=== PATIENT | male | born 1980 | race Hispanic/Latino ===

== ENCOUNTER 2023-01-25 15:06 | Inpatient (IN) | payer OTHER ==
[~2023-01-25 15:06] MED LIST: Iopamidol 370 76% 100 ML VIAL ONE
[2023-01-25] MEDS ORDERED: Ondansetron PF 4 MG/2 ML Vial IVP PRN (15:24)
[2023-01-25] MEDS ORDERED: Dextrose 5% in Water 1,000 ML IV PRN (15:24)
[2023-01-25] MEDS ORDERED: Dextrose 50% Abboject 50 ML SYRINGE SLOW IVP PRN (15:24)
[2023-01-25] MEDS ORDERED: TETANUS, DIPHTHERIA TOX,ADULT (TDVAX) 0.5 ML VIAL IM ONE (15:24)
[2023-01-25 15:32] LABS: #Eosinphils 0.2 thou/uL (0.0-0.7); #Lymphocytes 3.1 thou/uL (1.20-3.40); #Monocytes 0.6 thou/uL (0.11-0.59); %Basophils 0.4 % (0.0-1.0); %Eosinophils 1.3 % (0.0-10.0); %Lymphocytes 24.3 % (21.0-51.0); %Monocytes 4.3 % (0.0-10.0); %Neutrophils 69.7 % (42.0-75.0); Hemoglobin 12.3 g/dL (14.0-18.0); Mean Corpuscular HGB CONC 34.5 g/dL (32.0-36.0); Mean Corpuscular Hemoglobin 33.2 pg (27.0-31.0); Mean Corpuscular Volume 96.3 fl (78.0-98.0); Mean Platelet Volume 7.4 fL (7.4-10.4); Platelet Count 201 10x3/uL (130-400); RBC Distribution Width 11.2 % (11.5-14.5); Red Blood Cell (RBC) Count 3.71 mill/uL (4.70-6.10); White Blood Cell (WBC) Count 12.8 10x3/uL (4.8-10.8)
[2023-01-25] MEDS ORDERED: CEFAZOLIN 2 GM VIAL ONE ×2 (15:33→15:41)
[2023-01-25] MEDS ORDERED: Boostrix 0.5 ML (Tdap) VIAL (>/=7 yrs of age) ONE (15:35)
[2023-01-25] MEDS ORDERED: Calcium Chloride 1 GM/10 ML Abboject SYRINGE ONE ×2 (15:36→21:11)
[2023-01-25] MEDS ORDERED: Sodium Bicarb 50 MEQ/50 ML Abboject 8.4% SYRINGE ONE (15:36)
[2023-01-25 15:40] LABS: INR-International Normal Ratio 1.1; PTT 25.7 sec (22.9-36.1); Prothrombin Time 14.3 sec (12.0-14.7)
[2023-01-25 15:49] LABS: ALT (SGPT) 47 U/L (8-55); AST (SGOT) 61 U/L (5-34); Albumin 3.4 g/dL (3.5-5.0); Alkaline Phosphatase 77 U/L (40-110); Anion Gap 19 mmol/L (10-20); BUN (Urea Nitrogen) 10 mg/dL (8.9-20.6); Bilirubin, Total 0.3 mg/dL (0.2-1.2); Calc. Creatinine Clearance 0 mL/min (70-130); Calcium 7.3 mg/dL (7.8-10.44); Carbon Dioxide 15 mmol/L (22-29); Chloride 116 mmol/L (98-107); Estimated GFR 109; Globulin 2.9 g/dL (2.4-3.5); Glucose 127 mg/dL (70-105); Potassium 3.5 mmol/L (3.5-5.1); Protein, Total 6.3 g/dL (6.0-8.3); Sodium 146 mmol/L (136-145)
[2023-01-25 15:51] LABS: Actual Bicarbonate (HCO3a) 16.2 mEq/L (22-28); Analyzer IN Cardio ER; Base Excess (BEa) -10.5 mEq/L (-2.0 to +3.0); Calcium, Ionized (arterial) 1.31 mmol/L (1.12-1.30); Carboxyhemoglobin (COHb) 0.3 gm% (0.0-3.0); Hemoglobin (Hb) 13.1 g/dL (14.0-18.0); O2 Tension (PaO2), arterial 99.6 mmHg (80.0-100.0); Potassium - ABG Lab 3.54 mmol/L (3.70-5.30); pH, Arterial 7.24 (7.35-7.45)
[2023-01-25 15:54] LABS: Acetaminophen Less than 10.0 mcg/mL (10.0-30.0); Alcohol 311 mg/dL (Less than 10); CK (CPK) 614 U/L (30-200); Salicylate Less than 8.0 mg/dL (15.0-30.0)
[2023-01-25] MEDS ORDERED: Midazolam HCl 2 mg/2 ml Vial ONE ×2 (15:56→17:19)
[2023-01-25 15:58] LABS: Puncture Site RRA
[2023-01-25] MEDS ORDERED: levETIRAcetam 500 MG/5 ML VIAL ONE (16:02)
[2023-01-25] MEDS ORDERED: Fentanyl 100 MCG/2 ML VIAL ONE (16:26)
[2023-01-25] MEDS ORDERED: FENTANYL 500 MCG/10 ML VIAL 2,000 MCG in Sodium Chloride 0.9% 60 ML IV PRN (16:27)
[2023-01-25] MEDS ORDERED: Midazolam HCl 2 mg/2 ml Vial SLOW IVP SCH (16:30)
[2023-01-25] MEDS ORDERED: Sodium Bicarb 50 MEQ/50 ML VIAL ONE (16:32)
[2023-01-25 16:39] LABS: Lipase 18 U/L (8-78)
[2023-01-25] MEDS ORDERED: Fentanyl CADD 100 ML IVPB SCH (16:45)
[2023-01-25 16:57] LABS: Sodium 147 mmol/L (136-145)
[2023-01-25] MEDS ORDERED: Sodium Bicarb 50 MEQ/50 ML VIAL IVP SCH (17:15)
[2023-01-25] MEDS ORDERED: Fentanyl CADD 100 ML IV SCH (17:15)
[2023-01-25] MEDS ORDERED: Fentanyl BOLUS 250 ML IVPB PRN ×2 (17:15→17:30)
[2023-01-25] MEDS ORDERED: Sodium Chloride 0.9% 1,000 ML IV SCH (17:15)
[2023-01-25] MEDS: Sodium Chloride 0.9% 1,000 ML IV SCH ×2 (18:17→22:58)
[2023-01-25 18:46] LABS: SARS-CoV-2 NAA Rapid Test Not Detected (NotDetected)
[2023-01-25] MEDS: Ipratropium/Albuterol 3 ML NEB NEB SCH (18:59)
[2023-01-25 19:02] LABS: Sodium 145 mmol/L (136-145)
[2023-01-25 19:10] LABS: Actual Bicarbonate (HCO3a) 17.3 mEq/L (22-28); Base Excess (BEa) -7.8 mEq/L (-2.0 to +3.0); CO2 Tension 34.1 mmHg (35.0-45.0); Calcium, Ionized (arterial) 1.02 mmol/L (1.12-1.30); Carboxyhemoglobin (COHb) 0.3 gm% (0.0-3.0); Hemoglobin (Hb) 11.1 g/dL (14.0-18.0); O2 Tension (PaO2), arterial 222.9 mmHg (80.0-100.0); Potassium - ABG Lab 3.95 mmol/L (3.70-5.30); pH, Arterial 7.32 (7.35-7.45)
[2023-01-25 19:16] LABS: ALV-art Gradient 447.475 mmHg (0-20); Puncture Site Arterial Line
[2023-01-25 19:19] LABS: Lactic Acid 5.5 mmol/L (0.5-2.2)
[2023-01-25 19:56] LABS: Amphetamine Not Detected (NotDetected); Barbiturates Screen Not Detected (NotDetected); Benzodiazepine Screen Not Detected (NotDetected); Cocaine Metabolite Screen Not Detected (NotDetected); Methadone Not Detected (NotDetected); Methamphetamine Not Detected (NotDetected); Opiate Screen Not Detected (NotDetected); Oxycodone Screen Not Detected (NotDetected); Phencyclidine (PCP) Not Detected (NotDetected); THC/Cannabinoid Screen Not Detected (NotDetected); Tricyclic Screen Not Detected (NotDetected)
[2023-01-25] MEDS ORDERED: Midazolam HCl 5 mg/5 ml Vial ONE (20:53)
[2023-01-25] MEDS ORDERED: Fentanyl 250 MCG/5 ML VIAL ONE (20:53)
[2023-01-25] MEDS ORDERED: Bacitracin Zinc Ointment 30 gm TUBE ONE (21:11)
[2023-01-25] MEDS ORDERED: Esmolol 100 MG/10 ML VIAL ONE (21:11)
[2023-01-25] MEDS ORDERED: Vecuronium 10 MG VIAL ONE (21:11)
[2023-01-25] MEDS ORDERED: Dexamethasone 20 MG/5 ML VIAL ONE (21:11)
[2023-01-25] MEDS ORDERED: PHENYLEPHRINE-NS 100 MCG/ML 10 ML SYRINGE ONE (21:11)
[2023-01-25] MEDS ORDERED: Rocuronium Bromide 10 MG/ML (10ML VIAL) ONE ×2 (21:11)
[2023-01-25] MEDS ORDERED: Neomycin-Polymyxin 1 ML AMP ONE (21:11)
[2023-01-25] MEDS ORDERED: Thrombin 5000 UNITS/5 ML VIAL ONE (21:11)
[2023-01-25] MEDS ORDERED: Ondansetron PF 4 MG/2 ML Vial ONE (21:11)
[2023-01-25] MEDS ORDERED: EPINEPHrine 1 MG/ML AMP ONE (21:13)
[2023-01-25] MEDS ORDERED: Lidocaine 1% (PF) 30 ML VIAL ONE (21:13)
[2023-01-25] MEDS ORDERED: CEFAZOLIN 2 GM in Sodium Chloride 0.9% 100 ML IVPB SCH (21:15)
[2023-01-25] MEDS: CEFAZOLIN 2 GM in Sodium Chloride 0.9% 100 ML IVPB SCH (21:46)
[2023-01-25 23:41] LABS: INR-International Normal Ratio 1.3; PTT 30.5 sec (22.9-36.1); Prothrombin Time 16.4 sec (12.0-14.7)
[2023-01-25 23:42] LABS: Hemoglobin 8.8 g/dL (14.0-18.0)
[2023-01-25] MEDS ORDERED: Calcium Chloride 1 GM/10 ML Abboject SYRINGE IVP SCH (23:45)
[2023-01-25] MEDS ORDERED: Mineral Oil Sterile 10 ML VIAL ONE (23:48)
[2023-01-26] MEDS ORDERED: Oxazepam 10 MG CAP PO SCH (00:30)
[2023-01-26] MEDS ORDERED: Rocuronium Bromide 50 MG/5 ML VIAL ONE (00:43)
[2023-01-26] MEDS ORDERED: Sodium Bicarb 50 MEQ/50 ML VIAL ONE (02:06)
[2023-01-26] MEDS ORDERED: Vancomycin 1 GM VIAL ONE (02:12)
[2023-01-26] MEDS ORDERED: Propofol 1,000 MG/100 ML VIAL IV ONE (03:29)
[2023-01-26] MEDS ORDERED: Propofol 1,000 MG/100 ML VIAL IV PRN (03:41)
[2023-01-26] MEDS ORDERED: Sterile Water 10 ML ONE (03:43)
[2023-01-26] MEDS: niCARdipine 25 MG in Sodium Chloride 0.9% 250 ML 250 ML IVPB SCH ×2 (03:51→07:25)
[2023-01-26 04:59] LABS: INR-International Normal Ratio 1.1
[2023-01-26 05:00] LABS: PTT 30.4 sec (22.9-36.1)
[2023-01-26 05:07] LABS: Lactic Acid 2.3 mmol/L (0.5-2.2)
[2023-01-26 05:09] LABS: Band 23 % (5-11); Hemoglobin 9.5 g/dL (14.0-18.0); Hypochromia SLIGHT = 6-15 cells (100X) (0-5/hpf); Lymphocytes 5 % (21-51); MDiff Complete? YES; Mean Corpuscular HGB CONC 34.5 g/dL (32.0-36.0); Mean Corpuscular Hemoglobin 32.9 pg (27.0-31.0); Mean Corpuscular Volume 95.2 fl (78.0-98.0); Mean Platelet Volume 7.4 fL (7.4-10.4); Monocytes 3 % (0-10); Neutrophil 69 % (42-75); Platelet Count 126 10x3/uL (130-400); Platelet Morphology Comment Appears Adequate; RBC Distribution Width 11.9 % (11.5-14.5); White Blood Cell (WBC) Count 20.5 10x3/uL (4.8-10.8)
[2023-01-26 05:12] LABS: Anion Gap 17 mmol/L (10-20); BUN (Urea Nitrogen) 12 mg/dL (8.9-20.6); Calc. Creatinine Clearance 124 mL/min (70-130); Calcium 8.2 mg/dL (7.8-10.44); Carbon Dioxide 19 mmol/L (22-29); Chloride 113 mmol/L (98-107); Estimated GFR 113; Glucose 122 mg/dL (70-105); Magnesium 1.5 mg/dL (1.6-2.6); Sodium 145 mmol/L (136-145)
[2023-01-26 05:15] LABS: Phosphorus 3.6 mg/dL (2.3-4.7)
[2023-01-26] MEDS: Thiamine HCl 200 MG/2 ML VIAL SLOW IVP SCH (05:19)
[2023-01-26] MEDS: Oxazepam 10 MG CAP PO SCH ×3 (05:21→21:03)
[2023-01-26] MEDS: CEFAZOLIN 2 GM in Sodium Chloride 0.9% 100 ML IVPB SCH ×3 (05:21→21:04)
[2023-01-26] MEDS: Ipratropium/Albuterol 3 ML NEB NEB SCH ×3 (06:58→18:56)
[2023-01-26 07:27] LABS: Base Excess (BEa) -0.6 mEq/L (-2.0 to +3.0); CO2 Tension 39.2 mmHg (35.0-45.0); Calcium, Ionized (arterial) 1.27 mmol/L (1.12-1.30); Carboxyhemoglobin (COHb) 0.3 gm% (0.0-3.0); Hemoglobin (Hb) 10.3 g/dL (14.0-18.0); O2 Tension (PaO2), arterial 120.7 mmHg (80.0-100.0); Potassium - ABG Lab 4.07 mmol/L (3.70-5.30)
[2023-01-26] MEDS: Sodium Chloride 0.9% 1,000 ML IV SCH ×2 (07:27→13:39)
[2023-01-26 07:32] LABS: Puncture Site ARTLINE
[2023-01-26] MEDS ORDERED: Magnesium Sulfate In Water 4 GM in Premix Bag 1 BAG IVPB SCH (08:00)
[2023-01-26] MEDS ORDERED: Fentanyl CADD 100 ML ONE (08:37)
[2023-01-26] MEDS: Fentanyl CADD 100 ML IV SCH (08:48)
[2023-01-26] MEDS: Folic Acid 0.4 MG in Syringe 0 ML SC SCH (08:58)
[2023-01-26] MEDS: Pantoprazole 40 MG VIAL IVP SCH ×2 (08:59→21:04)
[2023-01-26] MEDS ORDERED: Folic Acid 5 MG/ML MDV SC SCH (09:00)
[2023-01-26 13:33] LABS: Sodium 140 mmol/L (136-145)
[2023-01-26 17:29] LABS: #Lymphocytes 1.1 thou/uL (1.20-3.40); #Monocytes 0.8 thou/uL (0.11-0.59); #Neutrophils 12.1 thou/uL (1.40-6.50); %Basophils 0.1 % (0.0-1.0); %Eosinophils 0.1 % (0.0-10.0); %Lymphocytes 7.7 % (21.0-51.0); %Monocytes 5.5 % (0.0-10.0); %Neutrophils 86.7 % (42.0-75.0); Hemoglobin 7.9 g/dL (14.0-18.0); Mean Corpuscular HGB CONC 34.2 g/dL (32.0-36.0); Mean Corpuscular Hemoglobin 32.9 pg (27.0-31.0); Mean Corpuscular Volume 96.1 fl (78.0-98.0); Mean Platelet Volume 7.7 fL (7.4-10.4); Platelet Count 104 10x3/uL (130-400); Red Blood Cell (RBC) Count 2.39 mill/uL (4.70-6.10)
[2023-01-26 17:41] LABS: INR-International Normal Ratio 1.1; Prothrombin Time 14.7 sec (12.0-14.7)
[2023-01-26 17:44] LABS: Lactic Acid 1.8 mmol/L (0.5-2.2)
[2023-01-26 17:57] LABS: Anion Gap 11 mmol/L (10-20); BUN (Urea Nitrogen) 11 mg/dL (8.9-20.6); Calc. Creatinine Clearance 131 mL/min (70-130); Calcium 7.6 mg/dL (7.8-10.44); Carbon Dioxide 24 mmol/L (22-29); Chloride 110 mmol/L (98-107); Estimated GFR 115; Glucose 141 mg/dL (70-105); Phosphorus 1.8 mg/dL (2.3-4.7); Potassium 3.6 mmol/L (3.5-5.1); Sodium 141 mmol/L (136-145)
[2023-01-26] MEDS ORDERED: Hydrocortisone Sod Succ/PF 100 mg/2 ml Vial IVP SCH (18:30)
[2023-01-26 18:37] LABS: Actual Bicarbonate (HCO3a) 25.1 mEq/L (22-28); Base Excess (BEa) 2.6 mEq/L (-2.0 to +3.0); CO2 Tension 30.1 mmHg (35.0-45.0); Calcium, Ionized (arterial) 1.07 mmol/L (1.12-1.30); Carboxyhemoglobin (COHb) 0.5 gm% (0.0-3.0); O2 Tension (PaO2), arterial 222.5 mmHg (80.0-100.0); pH, Arterial 7.54 (7.35-7.45)
[2023-01-26 18:38] LABS: Puncture Site Arterial Line
[2023-01-26 18:39] LABS: ALV-art Gradient 96.375 mmHg (0-20)
[2023-01-26] MEDS ORDERED: Calcium Chloride 1 GM/10 ML Abboject SYRINGE IVP SCH (18:45)
[2023-01-26] MEDS ORDERED: Potassium Phosphate 30 MMOL in Sodium Chloride 0.9% 250 ML 250 ML IVPB SCH (18:45)
[2023-01-26] MEDS: Propofol 1,000 MG/100 ML VIAL IV PRN (19:45)
[2023-01-27] MEDS: Thiamine HCl 200 MG/2 ML VIAL SLOW IVP SCH (01:12)
[2023-01-27] MEDS: Hydrocortisone Sod Succ/PF 100 mg/2 ml Vial IVP SCH ×3 (01:12→18:19)
[2023-01-27] MEDS: Sodium Chloride 0.9% 1,000 ML IV SCH ×3 (01:12→21:06)
[2023-01-27] MEDS ORDERED: Fentanyl CADD 100 ML ONE (03:59)
[2023-01-27] MEDS: Fentanyl CADD 100 ML IV SCH ×2 (04:08→20:20)
[2023-01-27 04:52] LABS: INR-International Normal Ratio 1.1; PTT 32.6 sec (22.9-36.1); Prothrombin Time 14.2 sec (12.0-14.7)
[2023-01-27 05:02] LABS: Lactic Acid 1.1 mmol/L (0.5-2.2)
[2023-01-27 05:14] LABS: #Lymphocytes 0.7 thou/uL (1.20-3.40); #Monocytes 0.5 thou/uL (0.11-0.59); #Neutrophils 9.6 thou/uL (1.40-6.50); %Lymphocytes 6.5 % (21.0-51.0); %Monocytes 4.6 % (0.0-10.0); %Neutrophils 88.9 % (42.0-75.0); Hemoglobin 8.2 g/dL (14.0-18.0); Mean Corpuscular HGB CONC 34.1 g/dL (32.0-36.0); Mean Corpuscular Volume 93.7 fl (78.0-98.0); Mean Platelet Volume 8.4 fL (7.4-10.4); Platelet Count 75 10x3/uL (130-400); RBC Distribution Width 12.9 % (11.5-14.5); Red Blood Cell (RBC) Count 2.56 mill/uL (4.70-6.10); White Blood Cell (WBC) Count 10.8 10x3/uL (4.8-10.8)
[2023-01-27] MEDS: Oxazepam 10 MG CAP PO SCH ×3 (05:15→21:03)
[2023-01-27] MEDS: CEFAZOLIN 2 GM in Sodium Chloride 0.9% 100 ML IVPB SCH ×3 (05:15→21:03)
[2023-01-27 05:16] LABS: Band 9 % (5-11); Lymphocytes 10 % (21-51); MDiff Complete? YES; Monocytes 1 % (0-10); Neutrophil 80 % (42-75); Platelet Morphology Comment Appears Decreased; RBC Morphology Normal
[2023-01-27 05:18] LABS: Anion Gap 11 mmol/L (10-20); BUN (Urea Nitrogen) 8 mg/dL (8.9-20.6); Calc. Creatinine Clearance 153 mL/min (70-130); Calcium 8.6 mg/dL (7.8-10.44); Carbon Dioxide 25 mmol/L (22-29); Chloride 108 mmol/L (98-107); Estimated GFR 120; Glucose 161 mg/dL (70-105); Magnesium 1.8 mg/dL (1.6-2.6); Phosphorus 2.5 mg/dL (2.3-4.7); Potassium 3.6 mmol/L (3.5-5.1); Sodium 140 mmol/L (136-145)
[2023-01-27] MEDS: Ipratropium/Albuterol 3 ML NEB NEB SCH ×3 (07:18→18:56)
[2023-01-27] MEDS ORDERED: Magnesium 2 GM/50 ML(in water) 2 GM in Premix Bag 1 BAG IVPB SCH (07:30)
[2023-01-27] MEDS ORDERED: Potassium Phosphate 15 MMOL, Magnesium Sulfate 2 GM in Sodium Chloride 0.9% 250 ML 250 ML IVPB SCH (07:30)
[2023-01-27 07:35] LABS: Actual Bicarbonate (HCO3a) 23.2 mEq/L (22-28); Base Excess (BEa) 1.2 mEq/L (-2.0 to +3.0); CO2 Tension 27.6 mmHg (35.0-45.0); Calcium, Ionized (arterial) 1.09 mmol/L (1.12-1.30); Carboxyhemoglobin (COHb) 0.1 gm% (0.0-3.0); O2 Tension (PaO2), arterial 198.2 mmHg (80.0-100.0); Potassium - ABG Lab 3.41 mmol/L (3.70-5.30); pH, Arterial 7.54 (7.35-7.45)
[2023-01-27] MEDS: hydrALAZINE 20 MG/ML VIAL SLOW IVP PRN ×2 (07:57→15:57)
[2023-01-27] MEDS ORDERED: Calcium Chloride 13.6 MEQ in Sodium Chloride 0.9% 100 ML IVPB SCH (09:00)
[2023-01-27] MEDS ORDERED: fentaNYL 50 mcg/mL 1 mL Vial SLOW IVP PRN (09:00)
[2023-01-27] MEDS ORDERED: Vecuronium 10 MG VIAL IV PRN (09:00)
[2023-01-27] MEDS ORDERED: Midazolam HCl 5 mg/5 ml Vial FS PRN (09:00)
[2023-01-27] MEDS ORDERED: Lidocaine 1% w/Epinephrine 1:100K 20 ML VIAL FS SCH (09:00)
[2023-01-27] MEDS ORDERED: Lidocaine 1% w/Epinephrine 1:200K 30 ML VIAL FS PRN (09:00)
[2023-01-27] MEDS ORDERED: Dexmedetomidine In 0.9 % NaCl 100 ML IVPB SCH (09:30)
[2023-01-27] MEDS ORDERED: Albumin 25% 25 GM/100 ML BOT IVPB SCH (09:30)
[2023-01-27] MEDS ORDERED: NOREPINEPHRINE 8 MG/250 ML-D5W 250 ML IVPB SCH (09:30)
[2023-01-27] MEDS: Pantoprazole 40 MG VIAL IVP SCH ×2 (09:48→21:05)
[2023-01-27] MEDS: Propofol 1,000 MG/100 ML VIAL IV PRN (10:55)
[2023-01-27] MEDS: Folic Acid 0.4 MG in Syringe 0 ML SC SCH (13:57)
[2023-01-27 14:19] LABS: Actual Bicarbonate (HCO3a) 15.2 mEq/L (22-28); Analyzer IN Cardio OR; Base Excess (BEa) -10.2 mEq/L (-2.0 to +3.0); CO2 Tension 32.1 mmHg (35.0-45.0); Calcium, Ionized (arterial) 0.96 mmol/L (1.12-1.30); Carboxyhemoglobin (COHb) 0.1 gm% (0.0-3.0); Hemoglobin (Hb) 9.9 g/dL (14.0-18.0); O2 Tension (PaO2), arterial 198.1 mmHg (80.0-100.0); Potassium - ABG Lab 4.17 mmol/L (3.70-5.30); pH, Arterial 7.29 (7.35-7.45)
[2023-01-27 14:20] LABS: Puncture Site Arterial Line
[2023-01-28] MEDS: Hydrocortisone Sod Succ/PF 100 mg/2 ml Vial IVP SCH (01:23)
[2023-01-28] MEDS: Thiamine HCl 200 MG/2 ML VIAL SLOW IVP SCH (01:23)
[2023-01-28] MEDS: Sodium Chloride 0.9% 1,000 ML IV SCH ×3 (01:24→17:44)
[2023-01-28 03:55] LABS: #Lymphocytes 0.7 thou/uL (1.20-3.40); #Monocytes 0.3 thou/uL (0.11-0.59); #Neutrophils 6.9 thou/uL (1.40-6.50); %Basophils 0.1 % (0.0-1.0); %Eosinophils 0.1 % (0.0-10.0); %Lymphocytes 8.8 % (21.0-51.0); %Monocytes 4.3 % (0.0-10.0); %Neutrophils 86.7 % (42.0-75.0); Hemoglobin 7.8 g/dL (14.0-18.0); Mean Corpuscular HGB CONC 35.8 g/dL (32.0-36.0); Mean Corpuscular Hemoglobin 33.4 pg (27.0-31.0); Mean Corpuscular Volume 93.2 fl (78.0-98.0); Mean Platelet Volume 8.2 fL (7.4-10.4); Platelet Count 100 10x3/uL (130-400); RBC Distribution Width 12.4 % (11.5-14.5); Red Blood Cell (RBC) Count 2.34 mill/uL (4.70-6.10); White Blood Cell (WBC) Count 7.9 10x3/uL (4.8-10.8)
[2023-01-28 04:16] LABS: Anion Gap 13 mmol/L (10-20); BUN (Urea Nitrogen) 9 mg/dL (8.9-20.6); Calc. Creatinine Clearance 153 mL/min (70-130); Calcium 8.3 mg/dL (7.8-10.44); Carbon Dioxide 23 mmol/L (22-29); Chloride 108 mmol/L (98-107); Estimated GFR 120; Glucose 122 mg/dL (70-105); Phosphorus 2.4 mg/dL (2.3-4.7); Potassium 3.2 mmol/L (3.5-5.1); Sodium 141 mmol/L (136-145)
[2023-01-28] MEDS: Oxazepam 10 MG CAP PO SCH ×3 (05:06→21:34)
[2023-01-28] MEDS: CEFAZOLIN 2 GM in Sodium Chloride 0.9% 100 ML IVPB SCH ×2 (05:06→14:51)
[2023-01-28] MEDS: Ipratropium/Albuterol 3 ML NEB NEB SCH ×3 (07:12→18:52)
[2023-01-28 07:27] LABS: Actual Bicarbonate (HCO3a) 26.4 mEq/L (22-28); Base Excess (BEa) 2.3 mEq/L (-2.0 to +3.0); CO2 Tension 39.1 mmHg (35.0-45.0); Carboxyhemoglobin (COHb) 0.1 gm% (0.0-3.0); O2 Tension (PaO2), arterial 105.9 mmHg (80.0-100.0); pH, Arterial 7.45 (7.35-7.45)
[2023-01-28 07:28] LABS: ALV-art Gradient 130.425 mmHg (0-20); Puncture Site Arterial Line
[2023-01-28] MEDS ORDERED: Potassium Phosphate 30 MMOL in Sodium Chloride 0.9% 250 ML 250 ML IVPB SCH (07:30)
[2023-01-28] MEDS ORDERED: Lorazepam 2 MG/ML VIAL SLOW IVP SCH (07:45)
[2023-01-28] MEDS ORDERED: Calcium Chloride 13.6 MEQ in Sodium Chloride 0.9% 100 ML IVPB SCH (08:15)
[2023-01-28] MEDS ORDERED: Fentanyl CADD 100 ML ONE (08:23)
[2023-01-28] MEDS: Fentanyl CADD 100 ML IV SCH (08:30)
[2023-01-28] MEDS: Folic Acid 1 MG TAB PER TUBE SCH (08:49)
[2023-01-28] MEDS: Thiamine 100 MG TAB PER TUBE SCH (08:49)
[2023-01-28] MEDS: Pantoprazole 40 MG VIAL IVP SCH ×2 (08:49→21:34)
[2023-01-28] MEDS: Acetaminophen 325 MG TAB PO SCH ×3 (11:48→21:33)
[2023-01-28] MEDS: Polyethylene Glycol 3350 17 GM Packet PO SCH (11:48)
[2023-01-28] MEDS: Senokot S 8.6-50 MG TAB PO SCH ×2 (11:49→21:34)
[2023-01-28] MEDS ORDERED: Oxazepam 10 MG CAP PO SCH (12:00)
[2023-01-28] MEDS: Acetaminophen/Codeine 30-300mg Tablet PO PRN (14:52)
[2023-01-28] MEDS: cefTRIAXone\\ROCEPHIN 2 GM in Sodium Chloride 0.9% 100 ML IVPB SCH (17:43)
[2023-01-28] MEDS: Dexmedetomidine 1,000 MCG in Sodium Chloride 0.9% 250 ML 240 ML IVPB SCH (20:06)
[2023-01-28] MEDS: carBAMazepine 200 MG TAB PO SCH (21:33)
[2023-01-29 01:19] LABS: Hemoglobin 7.6 g/dL (14.0-18.0); Mean Corpuscular HGB CONC 34.8 g/dL (32.0-36.0); Mean Corpuscular Hemoglobin 32.5 pg (27.0-31.0); Mean Corpuscular Volume 93.5 fl (78.0-98.0); Mean Platelet Volume 7.8 fL (7.4-10.4); Platelet Count 143 10x3/uL (130-400); RBC Distribution Width 12.1 % (11.5-14.5); Red Blood Cell (RBC) Count 2.34 mill/uL (4.70-6.10); White Blood Cell (WBC) Count 8.9 10x3/uL (4.8-10.8)
[2023-01-29] MEDS: Oxazepam 10 MG CAP PO SCH ×6 (01:29→19:40)
[2023-01-29 01:33] LABS: Band 9 % (5-11); Hypochromia SLIGHT = 6-15 cells (100X) (0-5/hpf); Lymphocytes 6 % (21-51); MDiff Complete? YES; Monocytes 19 % (0-10); Neutrophil 66 % (42-75); Platelet Morphology Comment Appears Adequate
[2023-01-29] MEDS: Acetaminophen 325 MG TAB PO SCH ×4 (03:50→20:44)
[2023-01-29] MEDS: Sodium Chloride 0.9% 1,000 ML IV SCH ×2 (03:51→06:13)
[2023-01-29] MEDS ORDERED: Fentanyl CADD 100 ML ONE (04:00)
[2023-01-29] MEDS: Fentanyl CADD 100 ML IV SCH (04:05)
[2023-01-29 04:11] LABS: #Lymphocytes 1.2 thou/uL (1.20-3.40); #Monocytes 0.7 thou/uL (0.11-0.59); #Neutrophils 6.3 thou/uL (1.40-6.50); %Basophils 0.2 % (0.0-1.0); %Eosinophils 0.5 % (0.0-10.0); %Lymphocytes 14.8 % (21.0-51.0); %Neutrophils 76.5 % (42.0-75.0); Hemoglobin 7.7 g/dL (14.0-18.0); Mean Corpuscular HGB CONC 35.2 g/dL (32.0-36.0); Mean Corpuscular Hemoglobin 32.7 pg (27.0-31.0); Mean Corpuscular Volume 92.8 fl (78.0-98.0); Mean Platelet Volume 8.2 fL (7.4-10.4); Platelet Count 128 10x3/uL (130-400); RBC Distribution Width 12.1 % (11.5-14.5); Red Blood Cell (RBC) Count 2.35 mill/uL (4.70-6.10); White Blood Cell (WBC) Count 8.2 10x3/uL (4.8-10.8)
[2023-01-29 04:34] LABS: Anion Gap 13 mmol/L (10-20); BUN (Urea Nitrogen) 11 mg/dL (8.9-20.6); Calc. Creatinine Clearance 164 mL/min (70-130); Calcium 7.7 mg/dL (7.8-10.44); Carbon Dioxide 22 mmol/L (22-29); Chloride 106 mmol/L (98-107); Estimated GFR 123; Glucose 91 mg/dL (70-105); Magnesium 1.8 mg/dL (1.6-2.6); Phosphorus 2.3 mg/dL (2.3-4.7); Potassium 3.2 mmol/L (3.5-5.1); Sodium 138 mmol/L (136-145)
[2023-01-29] MEDS: carBAMazepine 200 MG TAB PO SCH ×3 (05:55→22:00)
[2023-01-29] MEDS: Ipratropium/Albuterol 3 ML NEB NEB SCH ×5 (07:10→22:23)
[2023-01-29] MEDS ORDERED: Potassium Phosphate 30 MMOL, Magnesium Sulfate 2 GM in Sodium Chloride 0.9% 250 ML 250 ML IVPB SCH (07:15)
[2023-01-29] MEDS ORDERED: Magnesium 2 GM/50 ML(in water) 2 GM in Premix Bag 1 BAG IVPB SCH (07:15)
[2023-01-29] MEDS: Propofol 1,000 MG/100 ML VIAL IV PRN (08:07)
[2023-01-29] MEDS: Dexmedetomidine 1,000 MCG in Sodium Chloride 0.9% 250 ML 240 ML IVPB SCH ×2 (08:07→22:38)
[2023-01-29] MEDS ORDERED: Midazolam HCl 2 mg/2 ml Vial ONE (08:30)
[2023-01-29] MEDS ORDERED: Haloperidol Lactate 5 MG/ML VIAL ONE (09:29)
[2023-01-29] MEDS ORDERED: Haloperidol Lactate 5 MG/ML VIAL SLOW IVP SCH ×2 (09:30→19:45)
[2023-01-29] MEDS ORDERED: Lorazepam 2 MG/ML VIAL ONE ×2 (09:39→19:31)
[2023-01-29] MEDS ORDERED: Lorazepam 2 MG/ML VIAL SLOW IVP SCH ×2 (09:45→19:45)
[2023-01-29] MEDS ORDERED: Oxazepam 10 MG CAP PO SCH (09:45)
[2023-01-29] MEDS: Polyethylene Glycol 3350 17 GM Packet PO SCH (09:52)
[2023-01-29] MEDS: Folic Acid 1 MG TAB PER TUBE SCH (09:52)
[2023-01-29] MEDS: Senokot S 8.6-50 MG TAB PO SCH ×2 (09:52→20:44)
[2023-01-29] MEDS: Pantoprazole 40 MG VIAL IVP SCH ×2 (09:52→20:44)
[2023-01-29] MEDS: Thiamine 100 MG TAB PER TUBE SCH (09:52)
[2023-01-29] MEDS: Acetaminophen/Codeine 30-300mg Tablet PO SCH ×3 (09:53→20:42)
[2023-01-29 14:56] LABS: Anion Gap 14 mmol/L (10-20); BUN (Urea Nitrogen) 10 mg/dL (8.9-20.6); Calc. Creatinine Clearance 146 mL/min (70-130); Calcium 7.6 mg/dL (7.8-10.44); Carbon Dioxide 23 mmol/L (22-29); Chloride 105 mmol/L (98-107); Estimated GFR 119; Glucose 86 mg/dL (70-105); Potassium 3.2 mmol/L (3.5-5.1); Sodium 139 mmol/L (136-145)
[2023-01-29] MEDS: cefTRIAXone\\ROCEPHIN 2 GM in Sodium Chloride 0.9% 100 ML IVPB SCH (15:27)
[2023-01-29] MEDS ORDERED: Bisacodyl 10 MG SUPP PR SCH (19:45)
[2023-01-29] MEDS: hydrALAZINE 20 MG/ML VIAL SLOW IVP PRN (20:43)
[2023-01-30] MEDS: Oxazepam 10 MG CAP PO SCH ×6 (01:17→20:15)
[2023-01-30] MEDS: Ipratropium/Albuterol 3 ML NEB NEB SCH ×6 (02:45→21:56)
[2023-01-30] MEDS: Acetaminophen 325 MG TAB PO SCH ×3 (04:30→15:09)
[2023-01-30] MEDS: Acetaminophen/Codeine 30-300mg Tablet PO SCH ×4 (04:31→20:31)
[2023-01-30] MEDS: carBAMazepine 200 MG TAB PO SCH ×3 (06:04→21:55)
[2023-01-30 07:59] LABS: #Lymphocytes 1.3 thou/uL (1.20-3.40); #Monocytes 0.8 thou/uL (0.11-0.59); #Neutrophils 8.2 thou/uL (1.40-6.50); %Basophils 0.1 % (0.0-1.0); %Eosinophils 0.4 % (0.0-10.0); %Lymphocytes 12.6 % (21.0-51.0); %Monocytes 7.6 % (0.0-10.0); %Neutrophils 79.3 % (42.0-75.0); Hemoglobin 7.7 g/dL (14.0-18.0); Mean Corpuscular HGB CONC 34.9 g/dL (32.0-36.0); Mean Corpuscular Hemoglobin 32.8 pg (27.0-31.0); Mean Platelet Volume 7.2 fL (7.4-10.4); Platelet Count 168 10x3/uL (130-400); Red Blood Cell (RBC) Count 2.34 mill/uL (4.70-6.10); White Blood Cell (WBC) Count 10.4 10x3/uL (4.8-10.8)
[2023-01-30 08:20] LABS: ALT (SGPT) 27 U/L (8-55); AST (SGOT) 50 U/L (5-34); Albumin 3.1 g/dL (3.5-5.0); Alkaline Phosphatase 40 U/L (40-110); Anion Gap 12 mmol/L (10-20); BUN (Urea Nitrogen) 10 mg/dL (8.9-20.6); Bilirubin, Total 0.7 mg/dL (0.2-1.2); Calc. Creatinine Clearance 139 mL/min (70-130); Calcium 7.7 mg/dL (7.8-10.44); Carbon Dioxide 25 mmol/L (22-29); Chloride 104 mmol/L (98-107); Estimated GFR 118; Globulin 2.8 g/dL (2.4-3.5); Glucose 132 mg/dL (70-105); Magnesium 2.1 mg/dL (1.6-2.6); Phosphorus 2.1 mg/dL (2.3-4.7); Potassium 2.9 mmol/L (3.5-5.1); Protein, Total 5.9 g/dL (6.0-8.3); Sodium 138 mmol/L (136-145)
[2023-01-30 08:21] LABS: ALT (SGPT) 27 U/L (8-55); AST (SGOT) 49 U/L (5-34); Albumin 3.1 g/dL (3.5-5.0); Alkaline Phosphatase 41 U/L (40-110); Anion Gap 11 mmol/L (10-20); BUN (Urea Nitrogen) 10 mg/dL (8.9-20.6); Bilirubin, Total 0.7 mg/dL (0.2-1.2); Calc. Creatinine Clearance 148 mL/min (70-130); Calcium 7.8 mg/dL (7.8-10.44); Carbon Dioxide 25 mmol/L (22-29); Chloride 104 mmol/L (98-107); Estimated GFR 120; Globulin 2.8 g/dL (2.4-3.5); Glucose 132 mg/dL (70-105); Magnesium 2.2 mg/dL (1.6-2.6); Phosphorus 2.1 mg/dL (2.3-4.7); Potassium 2.9 mmol/L (3.5-5.1); Protein, Total 5.9 g/dL (6.0-8.3); Sodium 137 mmol/L (136-145)
[2023-01-30] MEDS ORDERED: VANCOMYCIN 1.75 GM/500 ML BAG 1.75 GM in Premix Bag 1 BAG IVPB SCH (08:30)
[2023-01-30] MEDS ORDERED: VANCOMYCIN IVPB PRN (08:34)
[2023-01-30] MEDS: Pantoprazole 40 MG VIAL IVP SCH ×2 (08:45→20:16)
[2023-01-30] MEDS: Bisacodyl 10 MG SUPP PR SCH (08:45)
[2023-01-30] MEDS: Senokot S 8.6-50 MG TAB PO SCH ×2 (08:46→20:15)
[2023-01-30] MEDS: Folic Acid 1 MG TAB PER TUBE SCH (08:46)
[2023-01-30] MEDS: Thiamine 100 MG TAB PER TUBE SCH (08:46)
[2023-01-30] MEDS: Polyethylene Glycol 3350 17 GM Packet PO SCH (08:46)
[2023-01-30] MEDS ORDERED: Potassium Phosphate 30 MMOL in Sodium Chloride 0.9% 250 ML 250 ML IVPB SCH (09:00)
[2023-01-30] MEDS ORDERED: Erythromycin Base 250 MG TAB PO SCH (09:15)
[2023-01-30] MEDS ORDERED: Piperacillin/Tazobactam 3.375 GM in Sodium Chloride 0.9% 100 ML IVPB SCH (10:00)
[2023-01-30] MEDS: cloNIDine 0.2 MG TAB PO SCH ×2 (12:08→17:18)
[2023-01-30] MEDS: hydrALAZINE 20 MG/ML VIAL SLOW IVP PRN (13:05)
[2023-01-30] MEDS: Dexmedetomidine 1,000 MCG in Sodium Chloride 0.9% 250 ML 240 ML IVPB SCH (13:39)
[2023-01-30] MEDS: Piperacillin/Tazobactam 3.375 GM in Sodium Chloride 0.9% 100 ML IVPB SCH ×2 (13:52→21:55)
[2023-01-30] MEDS ORDERED: Haloperidol Lactate 5 MG/ML VIAL SLOW IVP SCH (14:00)
[2023-01-30] MEDS: Scopolamine 1.5 mg/72 hour Patch TOP SCH (16:18)
[2023-01-30] MEDS: Acetaminophen 500 MG TAB PO SCH (20:15)
[2023-01-30] MEDS: Vancomycin 1.5 GRAM/300 ML BAG 1.5 GM in Premix Bag 1 BAG IVPB SCH (21:52)
[2023-01-31] MEDS: cloNIDine 0.2 MG TAB PO SCH ×5 (00:23→20:14)
[2023-01-31] MEDS: Oxazepam 10 MG CAP PO SCH ×6 (00:24→22:17)
[2023-01-31] MEDS: Ipratropium/Albuterol 3 ML NEB NEB SCH ×6 (01:59→23:17)
[2023-01-31] MEDS: Acetaminophen/Codeine 30-300mg Tablet PO SCH ×4 (03:17→22:15)
[2023-01-31] MEDS: Acetaminophen 500 MG TAB PO SCH ×4 (03:18→22:17)
[2023-01-31] MEDS: Piperacillin/Tazobactam 3.375 GM in Sodium Chloride 0.9% 100 ML IVPB SCH ×3 (05:09→22:13)
[2023-01-31] MEDS: carBAMazepine 200 MG TAB PO SCH ×3 (05:09→22:18)
[2023-01-31 06:38] LABS: Hemoglobin 7.5 g/dL (14.0-18.0); Mean Corpuscular HGB CONC 33.2 g/dL (32.0-36.0); Mean Corpuscular Hemoglobin 31.5 pg (27.0-31.0); Mean Corpuscular Volume 94.9 fl (78.0-98.0); Mean Platelet Volume 7.2 fL (7.4-10.4); Platelet Count 244 10x3/uL (130-400); Red Blood Cell (RBC) Count 2.39 mill/uL (4.70-6.10); White Blood Cell (WBC) Count 4.8 10x3/uL (4.8-10.8)
[2023-01-31 06:59] LABS: Band 41 % (5-11); Lymphocytes 5 % (21-51); MDiff Complete? YES; Monocytes 1 % (0-10); Myelocyte 1 % (0-0); Neutrophil 52 % (42-75)
[2023-01-31 07:06] LABS: Anion Gap 14 mmol/L (10-20); BUN (Urea Nitrogen) 11 mg/dL (8.9-20.6); Calc. Creatinine Clearance 137 mL/min (70-130); Carbon Dioxide 25 mmol/L (22-29); Chloride 106 mmol/L (98-107); Estimated GFR 117; Glucose 108 mg/dL (70-105); Potassium 2.9 mmol/L (3.5-5.1); Sodium 142 mmol/L (136-145)
[2023-01-31] MEDS ORDERED: Potassium Chloride 20 MEQ TAB PO SCH (07:15)
[2023-01-31] MEDS ORDERED: Potassium Phosphate 30 MMOL in Sodium Chloride 0.9% 250 ML 250 ML IVPB SCH ×2 (07:15→18:00)
[2023-01-31 07:25] LABS: Actual Bicarbonate (HCO3a) 29.4 mEq/L (22-28); Base Excess (BEa) 5.6 mEq/L (-2.0 to +3.0); CO2 Tension 39.3 mmHg (35.0-45.0); Calcium, Ionized (arterial) 1.04 mmol/L (1.12-1.30); Carboxyhemoglobin (COHb) 0.6 gm% (0.0-3.0); Hemoglobin (Hb) 7.6 g/dL (14.0-18.0); O2 Tension (PaO2), arterial 66.5 mmHg (80.0-100.0); Potassium - ABG Lab 2.92 mmol/L (3.70-5.30); Puncture Site RBA; pH, Arterial 7.49 (7.35-7.45)
[2023-01-31 07:26] LABS: ALV-art Gradient 419.125 mmHg (0-20)
[2023-01-31] MEDS ORDERED: Propofol 1,000 MG/100 ML VIAL IV ONE (07:50)
[2023-01-31] MEDS ORDERED: Propofol 1,000 MG/100 ML VIAL IV PRN (08:00)
[2023-01-31] MEDS ORDERED: Calcium Chloride 13.6 MEQ in Sodium Chloride 0.9% 100 ML IVPB SCH (08:00)
[2023-01-31] MEDS ORDERED: Propofol BOLUS 1,000 MG/100 ML VIAL IV PRN (08:00)
[2023-01-31] MEDS ORDERED: Ventilator Sedation Protocol 1 EACH FS SCH ×2 (08:00→10:45)
[2023-01-31] MEDS: Pantoprazole 40 MG VIAL IVP SCH ×2 (09:17→22:14)
[2023-01-31] MEDS: Polyethylene Glycol 3350 17 GM Packet PO SCH (09:17)
[2023-01-31] MEDS: Bisacodyl 10 MG SUPP PR SCH (09:17)
[2023-01-31] MEDS: Senokot S 8.6-50 MG TAB PO SCH ×2 (09:17→22:20)
[2023-01-31] MEDS: Folic Acid 1 MG TAB PER TUBE SCH (09:18)
[2023-01-31] MEDS: Thiamine 100 MG TAB PER TUBE SCH (09:18)
[2023-01-31] MEDS: Vancomycin 1.5 GRAM/300 ML BAG 1.5 GM in Premix Bag 1 BAG IVPB SCH ×2 (09:18→22:12)
[2023-01-31] MEDS ORDERED: Midazolam HCl 2 mg/2 ml Vial SLOW IVP PRN (09:49)
[2023-01-31] MEDS ORDERED: Vecuronium 10 MG VIAL ONE (09:52)
[2023-01-31] MEDS ORDERED: Midazolam HCl 2 mg/2 ml Vial ONE (09:55)
[2023-01-31] MEDS ORDERED: Vecuronium 10 MG VIAL IVP SCH (10:00)
[2023-01-31] MEDS ORDERED: Fentanyl 100 MCG/2 ML VIAL SLOW IVP SCH ×2 (10:00→10:45)
[2023-01-31] MEDS ORDERED: Furosemide 40 MG/4 ML VIAL ONE (10:24)
[2023-01-31] MEDS ORDERED: Furosemide 20 MG/2 ML VIAL SLOW IVP SCH ×2 (10:30→18:15)
[2023-01-31] MEDS ORDERED: Fentanyl CADD 100 ML ONE (10:36)
[2023-01-31] MEDS ORDERED: Furosemide 40 MG/4 ML VIAL SLOW IVP SCH (10:45)
[2023-01-31] MEDS: Fentanyl CADD 100 ML IV SCH (11:00)
[2023-01-31] MEDS ORDERED: Fentanyl BOLUS 250 ML IVPB PRN (11:00)
[2023-01-31 11:36] LABS: Actual Bicarbonate (HCO3a) 29.7 mEq/L (22-28); Calcium, Ionized (arterial) 1.05 mmol/L (1.12-1.30); Carboxyhemoglobin (COHb) 0.8 gm% (0.0-3.0); Hemoglobin (Hb) 7.8 g/dL (14.0-18.0); O2 Tension (PaO2), arterial 65.3 mmHg (80.0-100.0); Potassium - ABG Lab 3.16 mmol/L (3.70-5.30); pH, Arterial 7.44 (7.35-7.45)
[2023-01-31 11:38] LABS: Puncture Site RBA
[2023-01-31] MEDS ORDERED: NOREPINEPHRINE 8 MG/250 ML-D5W 250 ML IVPB SCH (12:00)
[2023-01-31] MEDS: Dexmedetomidine 1,000 MCG in Sodium Chloride 0.9% 250 ML 240 ML IVPB SCH (15:21)
[2023-01-31 17:36] LABS: Anion Gap 17 mmol/L (10-20); BUN (Urea Nitrogen) 12 mg/dL (8.9-20.6); Calc. Creatinine Clearance 141 mL/min (70-130); Carbon Dioxide 23 mmol/L (22-29); Chloride 107 mmol/L (98-107); Estimated GFR 118; Glucose 98 mg/dL (70-105); Magnesium 1.8 mg/dL (1.6-2.6); Phosphorus 3.5 mg/dL (2.3-4.7); Potassium 3.4 mmol/L (3.5-5.1); Sodium 144 mmol/L (136-145)
[2023-01-31] MEDS ORDERED: Magnesium 2 GM/50 ML(in water) 2 GM in Premix Bag 1 BAG IVPB SCH (18:00)
[2023-01-31] MEDS: hydrALAZINE 20 MG/ML VIAL SLOW IVP PRN (22:32)
[2023-02-01] MEDS: cloNIDine 0.2 MG TAB PO SCH ×4 (01:30→17:29)
[2023-02-01] MEDS: Oxazepam 10 MG CAP PO SCH ×6 (01:32→21:29)
[2023-02-01] MEDS: Ipratropium/Albuterol 3 ML NEB NEB SCH ×6 (01:59→22:32)
[2023-02-01] MEDS: Acetaminophen/Codeine 30-300mg Tablet PO SCH ×4 (04:24→21:31)
[2023-02-01] MEDS: Acetaminophen 500 MG TAB PO SCH ×4 (04:25→21:31)
[2023-02-01 05:17] LABS: Hemoglobin 6.9 g/dL (14.0-18.0); Mean Corpuscular Hemoglobin 31.8 pg (27.0-31.0); Mean Corpuscular Volume 96.3 fl (78.0-98.0); Mean Platelet Volume 7.8 fL (7.4-10.4); Platelet Count 279 10x3/uL (130-400); RBC Distribution Width 12.6 % (11.5-14.5); Red Blood Cell (RBC) Count 2.17 mill/uL (4.70-6.10)
[2023-02-01 05:27] LABS: Anion Gap 14 mmol/L (10-20); BUN (Urea Nitrogen) 19 mg/dL (8.9-20.6); Calc. Creatinine Clearance 98 mL/min (70-130); Carbon Dioxide 27 mmol/L (22-29); Chloride 105 mmol/L (98-107); Estimated GFR 104; Glucose 120 mg/dL (70-105); Magnesium 2.3 mg/dL (1.6-2.6); Phosphorus 3.3 mg/dL (2.3-4.7); Potassium 3.3 mmol/L (3.5-5.1); Sodium 143 mmol/L (136-145)
[2023-02-01] MEDS: carBAMazepine 200 MG TAB PO SCH ×3 (05:41→21:30)
[2023-02-01] MEDS: Piperacillin/Tazobactam 3.375 GM in Sodium Chloride 0.9% 100 ML IVPB SCH ×3 (05:42→21:27)
[2023-02-01 06:03] LABS: Band 11 % (5-11); Eosinophils 2 % (0-10); Lymphocytes 12 % (21-51); MDiff Complete? YES; Monocytes 4 % (0-10); Neutrophil 71 % (42-75); Platelet Morphology Comment Appears Adequate; Polychromasia SLIGHT = 2-3 cells (100X) (0-2/hpf); White Blood Cell (WBC) Count 11.7 10x3/uL (4.8-10.8)
[2023-02-01 07:29] LABS: Actual Bicarbonate (HCO3a) 30.9 mEq/L (22-28); Base Excess (BEa) 6.6 mEq/L (-2.0 to +3.0); CO2 Tension 43.1 mmHg (35.0-45.0); Calcium, Ionized (arterial) 1.03 mmol/L (1.12-1.30); Carboxyhemoglobin (COHb) 0.5 gm% (0.0-3.0); Hemoglobin (Hb) 7.6 g/dL (14.0-18.0); O2 Tension (PaO2), arterial 89.7 mmHg (80.0-100.0); Potassium - ABG Lab 3.16 mmol/L (3.70-5.30); pH, Arterial 7.47 (7.35-7.45)
[2023-02-01] MEDS ORDERED: Fentanyl CADD 100 ML ONE (07:30)
[2023-02-01] MEDS: Fentanyl CADD 100 ML IV SCH (07:31)
[2023-02-01 07:37] LABS: ALV-art Gradient 284.225 mmHg (0-20); Puncture Site RBA
[2023-02-01] MEDS ORDERED: Potassium Phosphate 30 MMOL in Sodium Chloride 0.9% 250 ML 250 ML IVPB SCH (08:00)
[2023-02-01] MEDS ORDERED: Calcium Chloride 13.6 MEQ in Sodium Chloride 0.9% 100 ML IVPB SCH (08:00)
[2023-02-01 08:33] LABS: Vancomycin, Trough 20.7 ug/mL
[2023-02-01] MEDS ORDERED: Vancomycin 1 GM in Premix Bag 1 BAG IVPB SCH (09:00)
[2023-02-01] MEDS: Thiamine 100 MG TAB PER TUBE SCH (09:07)
[2023-02-01] MEDS: Bisacodyl 10 MG SUPP PR SCH (09:07)
[2023-02-01] MEDS: Folic Acid 1 MG TAB PER TUBE SCH (09:08)
[2023-02-01] MEDS: Pantoprazole 40 MG VIAL IVP SCH ×2 (09:08→21:36)
[2023-02-01] MEDS: Senokot S 8.6-50 MG TAB PO SCH ×2 (09:08→21:30)
[2023-02-01] MEDS: Polyethylene Glycol 3350 17 GM Packet PO SCH (09:09)
[2023-02-01] MEDS ORDERED: Iopamidol 370 76% 100 ML VIAL ONE (10:55)
[2023-02-01] MEDS ORDERED: Lidocaine 1% (PF) 30 ML VIAL ONE (14:45)
[2023-02-01] MEDS: Dexmedetomidine 1,000 MCG in Sodium Chloride 0.9% 250 ML 240 ML IVPB SCH (14:46)
[2023-02-02] MEDS ORDERED: Fentanyl CADD 100 ML ONE (01:17)
[2023-02-02] MEDS: Fentanyl CADD 100 ML IV SCH (01:21)
[2023-02-02] MEDS: cloNIDine 0.2 MG TAB PO SCH ×3 (01:24→12:19)
[2023-02-02] MEDS: Oxazepam 10 MG CAP PO SCH ×6 (01:24→22:20)
[2023-02-02] MEDS: Acetaminophen/Codeine 30-300mg Tablet PO SCH ×4 (01:44→17:53)
[2023-02-02] MEDS: Acetaminophen 500 MG TAB PO SCH ×3 (01:44→16:00)
[2023-02-02] MEDS: Ipratropium/Albuterol 3 ML NEB NEB SCH ×6 (02:12→22:21)
[2023-02-02 04:47] LABS: #Eosinphils 0.1 thou/uL (0.0-0.7); #Lymphocytes 0.8 thou/uL (1.20-3.40); #Monocytes 0.6 thou/uL (0.11-0.59); #Neutrophils 10.1 thou/uL (1.40-6.50); %Basophils 0.1 % (0.0-1.0); %Eosinophils 0.7 % (0.0-10.0); %Lymphocytes 7.3 % (21.0-51.0); %Monocytes 4.8 % (0.0-10.0); Hemoglobin 6.9 g/dL (14.0-18.0); Mean Corpuscular HGB CONC 32.7 g/dL (32.0-36.0); Mean Corpuscular Hemoglobin 31.6 pg (27.0-31.0); Mean Corpuscular Volume 96.6 fl (78.0-98.0); Platelet Count 239 10x3/uL (130-400); RBC Distribution Width 13.3 % (11.5-14.5); Red Blood Cell (RBC) Count 2.19 mill/uL (4.70-6.10); White Blood Cell (WBC) Count 11.6 10x3/uL (4.8-10.8)
[2023-02-02 05:02] LABS: Anion Gap 15 mmol/L (10-20); BUN (Urea Nitrogen) 35 mg/dL (8.9-20.6); Calc. Creatinine Clearance 37 mL/min (70-130); Carbon Dioxide 26 mmol/L (22-29); Chloride 107 mmol/L (98-107); Estimated GFR 32; Glucose 107 mg/dL (70-105); Magnesium 2.4 mg/dL (1.6-2.6); Phosphorus 5.1 mg/dL (2.3-4.7); Potassium 3.5 mmol/L (3.5-5.1); Sodium 144 mmol/L (136-145)
[2023-02-02] MEDS: Piperacillin/Tazobactam 3.375 GM in Sodium Chloride 0.9% 100 ML IVPB SCH ×3 (06:01→22:19)
[2023-02-02] MEDS: carBAMazepine 200 MG TAB PO SCH ×3 (06:01→22:20)
[2023-02-02 07:58] LABS: Base Excess (BEa) 3.5 mEq/L (-2.0 to +3.0); CO2 Tension 48.5 mmHg (35.0-45.0); Calcium, Ionized (arterial) 1.08 mmol/L (1.12-1.30); Carboxyhemoglobin (COHb) 0.6 gm% (0.0-3.0); Hemoglobin (Hb) 8.9 g/dL (14.0-18.0); O2 Tension (PaO2), arterial 78.8 mmHg (80.0-100.0); Potassium - ABG Lab 3.64 mmol/L (3.70-5.30); pH, Arterial 7.39 (7.35-7.45)
[2023-02-02 08:01] LABS: ALV-art Gradient 217.075 mmHg (0-20); Puncture Site LRA
[2023-02-02 08:45] LABS: #Eosinphils 0.2 thou/uL (0.0-0.7); #Lymphocytes 1.3 thou/uL (1.20-3.40); #Monocytes 0.7 thou/uL (0.11-0.59); #Neutrophils 12.1 thou/uL (1.40-6.50); %Basophils 0.1 % (0.0-1.0); %Eosinophils 1.5 % (0.0-10.0); %Lymphocytes 9.4 % (21.0-51.0); %Monocytes 4.5 % (0.0-10.0); %Neutrophils 84.6 % (42.0-75.0); Mean Corpuscular HGB CONC 33.1 g/dL (32.0-36.0); Mean Corpuscular Hemoglobin 32.1 pg (27.0-31.0); Mean Corpuscular Volume 96.9 fl (78.0-98.0); Mean Platelet Volume 8.2 fL (7.4-10.4); Platelet Count 262 10x3/uL (130-400); RBC Distribution Width 13.5 % (11.5-14.5); Red Blood Cell (RBC) Count 2.51 mill/uL (4.70-6.10); White Blood Cell (WBC) Count 14.3 10x3/uL (4.8-10.8)
[2023-02-02 08:52] LABS: Bacteria/HPF 3+ HPF (None Seen); Bilirubin Negative (Negative); Blood, Urine 2+ (Negative); CAUTI Indications for Culture Fever or rigors; Clarity Turbid (Clear); Glucose, Urine (Dipstick) Normal (Negative); Ketone, Urine Negative (Negative); Leukocyte 25 Leu/uL (Negative); Nitrite Negative (Negative); Protein, Urine (Dipstick) 50 mg/dL (Neg-Trace); RBC/HPF 21-50 HPF (0-3); Specific Gravity, Urine 1.016 (1.002-1.036); Squamous Epithelial 0-3 HPF (0-3); Urobilinogen Normal mg/dL (Less than 2); pH, Urine 5.5 (5.0-9.0)
[2023-02-02 08:56] LABS: Urine Culture Reflex No No
[2023-02-02 09:00] LABS: ALT (SGPT) 20 U/L (8-55); AST (SGOT) 50 U/L (5-34); Albumin 2.8 g/dL (3.5-5.0); Alkaline Phosphatase 56 U/L (40-110); Anion Gap 17 mmol/L (10-20); BUN (Urea Nitrogen) 37 mg/dL (8.9-20.6); Bilirubin, Total 0.6 mg/dL (0.2-1.2); Calc. Creatinine Clearance 37 mL/min (70-130); Calcium 8.1 mg/dL (7.8-10.44); Carbon Dioxide 25 mmol/L (22-29); Chloride 107 mmol/L (98-107); Estimated GFR 30; Globulin 3.5 g/dL (2.4-3.5); Glucose 103 mg/dL (70-105); Magnesium 2.6 mg/dL (1.6-2.6); Phosphorus 4.8 mg/dL (2.3-4.7); Potassium 3.7 mmol/L (3.5-5.1); Protein, Total 6.3 g/dL (6.0-8.3); Sodium 145 mmol/L (136-145)
[2023-02-02] MEDS ORDERED: Calcium Chloride 13.6 MEQ in Sodium Chloride 0.9% 100 ML IVPB SCH (09:00)
[2023-02-02] MEDS: Bisacodyl 10 MG SUPP PR SCH (09:15)
[2023-02-02] MEDS: Thiamine 100 MG TAB PER TUBE SCH (09:16)
[2023-02-02] MEDS: Pantoprazole 40 MG VIAL IVP SCH ×2 (09:16→22:21)
[2023-02-02] MEDS: Polyethylene Glycol 3350 17 GM Packet PO SCH (09:16)
[2023-02-02] MEDS: Senokot S 8.6-50 MG TAB PO SCH ×2 (09:16→22:20)
[2023-02-02] MEDS: Folic Acid 1 MG TAB PER TUBE SCH (09:16)
[2023-02-02] MEDS ORDERED: Sodium Chloride 0.9% 1,000 ML IV SCH (12:15)
[2023-02-02] MEDS: Acetaminophen/Codeine 30-300mg Tablet PO PRN (13:24)
[2023-02-02] MEDS: hydrALAZINE 20 MG/ML VIAL SLOW IVP PRN (13:41)
[2023-02-02 15:38] LABS: Hemoglobin 7.7 g/dL (14.0-18.0); Mean Corpuscular HGB CONC 32.4 g/dL (32.0-36.0); Mean Corpuscular Hemoglobin 31.5 pg (27.0-31.0); Mean Corpuscular Volume 97.2 fl (78.0-98.0); Mean Platelet Volume 7.9 fL (7.4-10.4); Platelet Count 255 10x3/uL (130-400); RBC Distribution Width 13.5 % (11.5-14.5); Red Blood Cell (RBC) Count 2.43 mill/uL (4.70-6.10); White Blood Cell (WBC) Count 15.2 10x3/uL (4.8-10.8)
[2023-02-02 15:54] LABS: Band 3 % (5-11); Eosinophils 1 % (0-10); Lymphocytes 4 % (21-51); MDiff Complete? YES; Monocytes 5 % (0-10); Neutrophil 86 % (42-75); Platelet Morphology Comment Appears Adequate; Polychromasia SLIGHT = 2-3 cells (100X) (0-2/hpf); Reactive Lymphocytes 1 % (0-10)
[2023-02-02] MEDS: Scopolamine 1.5 mg/72 hour Patch TOP SCH (16:00)
[2023-02-02 16:03] LABS: BUN (Urea Nitrogen) 38 mg/dL (8.9-20.6); Calc. Creatinine Clearance 37 mL/min (70-130); Calcium 8.4 mg/dL (7.8-10.44); Carbon Dioxide 22 mmol/L (22-29); Chloride 110 mmol/L (98-107); Estimated GFR 30; Glucose 119 mg/dL (70-105); Magnesium 2.5 mg/dL (1.6-2.6); Phosphorus 4.5 mg/dL (2.3-4.7); Potassium 3.7 mmol/L (3.5-5.1); Sodium 146 mmol/L (136-145)
[2023-02-02] MEDS: Sodium Chloride 0.9% 1,000 ML IV SCH (17:37)
[2023-02-02] MEDS: cloNIDine 0.3 MG TAB PO SCH (17:53)
[2023-02-02] MEDS: Acetaminophen 325 MG TAB PO SCH (22:21)
[2023-02-02 22:46] LABS: Anion Gap 18 mmol/L (10-20)
[2023-02-03] MEDS: Oxazepam 10 MG CAP PO SCH ×6 (00:56→19:12)
[2023-02-03] MEDS: Acetaminophen/Codeine 30-300mg Tablet PO SCH ×4 (00:57→19:11)
[2023-02-03] MEDS: cloNIDine 0.3 MG TAB PO SCH ×4 (00:57→19:12)
[2023-02-03] MEDS: Ipratropium/Albuterol 3 ML NEB NEB SCH ×6 (02:59→22:04)
[2023-02-03] MEDS: Acetaminophen 325 MG TAB PO SCH ×4 (04:10→21:10)
[2023-02-03] MEDS: Dexmedetomidine 1,000 MCG in Sodium Chloride 0.9% 250 ML 240 ML IVPB SCH (06:10)
[2023-02-03] MEDS: carBAMazepine 200 MG TAB PO SCH ×3 (06:11→21:11)
[2023-02-03] MEDS: Piperacillin/Tazobactam 3.375 GM in Sodium Chloride 0.9% 100 ML IVPB SCH ×3 (06:11→21:11)
[2023-02-03] MEDS: hydrALAZINE 20 MG/ML VIAL SLOW IVP PRN ×2 (06:24→21:11)
[2023-02-03] MEDS: Sodium Chloride 0.9% 1,000 ML IV SCH ×2 (06:33→14:03)
[2023-02-03 08:39] LABS: Hemoglobin 7.4 g/dL (14.0-18.0); Mean Corpuscular HGB CONC 31.3 g/dL (32.0-36.0); Mean Corpuscular Volume 99.1 fl (78.0-98.0); Mean Platelet Volume 7.8 fL (7.4-10.4); Platelet Count 259 10x3/uL (130-400); RBC Distribution Width 13.7 % (11.5-14.5); Red Blood Cell (RBC) Count 2.39 mill/uL (4.70-6.10); White Blood Cell (WBC) Count 14.7 10x3/uL (4.8-10.8)
[2023-02-03 08:55] LABS: Anion Gap 13 mmol/L (10-20); BUN (Urea Nitrogen) 47 mg/dL (8.9-20.6); Calc. Creatinine Clearance 35 mL/min (70-130); Calcium 8.1 mg/dL (7.8-10.44); Carbon Dioxide 27 mmol/L (22-29); Chloride 114 mmol/L (98-107); Estimated GFR 27; Glucose 148 mg/dL (70-105); Magnesium 2.6 mg/dL (1.6-2.6); Phosphorus 3.4 mg/dL (2.3-4.7); Potassium 3.8 mmol/L (3.5-5.1); Sodium 150 mmol/L (136-145)
[2023-02-03] MEDS ORDERED: Lactated Ringer's 1,000 ML IV SCH (09:45)
[2023-02-03] MEDS: Polyethylene Glycol 3350 17 GM Packet PO SCH (09:56)
[2023-02-03] MEDS: Senokot S 8.6-50 MG TAB PO SCH ×2 (09:56→21:11)
[2023-02-03] MEDS: Thiamine 100 MG TAB PER TUBE SCH (09:57)
[2023-02-03] MEDS: Bisacodyl 10 MG SUPP PR SCH (09:57)
[2023-02-03] MEDS: Metoprolol Tartrate 50 MG TAB PO SCH ×2 (09:57→21:12)
[2023-02-03] MEDS: Folic Acid 1 MG TAB PER TUBE SCH (10:00)
[2023-02-03] MEDS: Pantoprazole 40 MG VIAL IVP SCH ×2 (10:09→21:12)
[2023-02-03 12:08] LABS: Band 9 % (5-11); Eosinophils 1 % (0-10); Lymphocytes 8 % (21-51); MDiff Complete? YES; Monocytes 4 % (0-10); Myelocyte 2 % (0-0); Neutrophil 75 % (42-75); Nucleated RBC 2 % (0); Platelet Morphology Comment Appears Adequate; Polychromasia SLIGHT = 2-3 cells (100X) (0-2/hpf); Reactive Lymphocytes 1 % (0-10)
[2023-02-03] MEDS: Metoclopramide HCl 10 MG/2 ML VIAL IVP SCH ×2 (14:34→21:12)
[2023-02-04] MEDS: Oxazepam 10 MG CAP PO SCH ×5 (00:14→23:35)
[2023-02-04] MEDS: cloNIDine 0.3 MG TAB PO SCH ×5 (00:14→23:35)
[2023-02-04] MEDS: Acetaminophen/Codeine 30-300mg Tablet PO SCH ×4 (00:14→17:14)
[2023-02-04] MEDS: Ipratropium/Albuterol 3 ML NEB NEB SCH ×6 (02:25→22:34)
[2023-02-04] MEDS: Acetaminophen 325 MG TAB PO SCH ×4 (02:27→21:22)
[2023-02-04 05:34] LABS: Hemoglobin 8.3 g/dL (14.0-18.0); Mean Corpuscular HGB CONC 32.5 g/dL (32.0-36.0); Mean Corpuscular Hemoglobin 31.8 pg (27.0-31.0); Mean Corpuscular Volume 97.7 fl (78.0-98.0); Mean Platelet Volume 8.5 fL (7.4-10.4); Platelet Count 253 10x3/uL (130-400); RBC Distribution Width 14.3 % (11.5-14.5); Red Blood Cell (RBC) Count 2.61 mill/uL (4.70-6.10); White Blood Cell (WBC) Count 18.7 10x3/uL (4.8-10.8)
[2023-02-04] MEDS: Piperacillin/Tazobactam 3.375 GM in Sodium Chloride 0.9% 100 ML IVPB SCH (05:45)
[2023-02-04] MEDS: Metoclopramide HCl 10 MG/2 ML VIAL IVP SCH ×3 (05:46→21:23)
[2023-02-04 05:49] LABS: Anion Gap 17 mmol/L (10-20); BUN (Urea Nitrogen) 61 mg/dL (8.9-20.6); Calc. Creatinine Clearance 28 mL/min (70-130); Calcium 8.1 mg/dL (7.8-10.44); Carbon Dioxide 22 mmol/L (22-29); Chloride 116 mmol/L (98-107); Estimated GFR 21; Glucose 106 mg/dL (70-105); Magnesium 2.8 mg/dL (1.6-2.6); Phosphorus 4.3 mg/dL (2.3-4.7); Potassium 3.9 mmol/L (3.5-5.1); Sodium 151 mmol/L (136-145)
[2023-02-04 06:36] LABS: Band 2 % (5-11); Hypochromia SLIGHT = 6-15 cells (100X) (0-5/hpf); Lymphocytes 7 % (21-51); MDiff Complete? YES; Metamyelocyte 1 % (0-0); Monocytes 5 % (0-10); Neutrophil 85 % (42-75); Platelet Morphology Comment Appears Adequate; Polychromasia SLIGHT = 2-3 cells (100X) (0-2/hpf)
[2023-02-04] MEDS ORDERED: Midazolam HCl 2 mg/2 ml Vial IVP SCH (07:15)
[2023-02-04] MEDS ORDERED: Fentanyl 100 MCG/2 ML VIAL SLOW IVP SCH (07:15)
[2023-02-04] MEDS: Lactated Ringer's 1,000 ML IV SCH ×2 (07:24→15:20)
[2023-02-04] MEDS: Metoprolol Tartrate 50 MG TAB PO SCH ×2 (08:30→21:23)
[2023-02-04] MEDS: Pantoprazole 40 MG VIAL IVP SCH ×2 (08:30→21:24)
[2023-02-04] MEDS: Bisacodyl 10 MG SUPP PR SCH (08:30)
[2023-02-04] MEDS ORDERED: Cefepime 2 GM VIAL IVPB SCH (09:00)
[2023-02-04] MEDS ORDERED: fentaNYL 50 mcg/mL 1 mL Vial SLOW IVP SCH (09:00)
[2023-02-04] MEDS: Folic Acid 1 MG TAB PER TUBE SCH (10:38)
[2023-02-04] MEDS: Thiamine 100 MG TAB PER TUBE SCH (10:38)
[2023-02-04] MEDS: Polyethylene Glycol 3350 17 GM Packet PO SCH (10:39)
[2023-02-04] MEDS: carBAMazepine 200 MG TAB PO SCH ×3 (10:39→21:23)
[2023-02-04] MEDS: Senokot S 8.6-50 MG TAB PO SCH ×2 (10:39→21:22)
[2023-02-04] MEDS: metroNIDAZOLE 500 MG in Premix Bag 1 BAG IVPB SCH ×2 (13:36→21:21)
[2023-02-04] MEDS ORDERED: Vancomycin Dose by Levels Sliding Scale (Wt 71-99) FS SCH (13:45)
[2023-02-04] MEDS ORDERED: Vancomycin 1 GM in Premix Bag 1 BAG IVPB SCH (14:45)
[2023-02-04 15:48] LABS: CSF, Glucose Less than 5 mg/dl (40-70); CSF, Protein 98 mg/dL (15-40)
[2023-02-04 16:13] LABS: CSF Source CSF; Clarity Hazy (Clear); Tube # EDTA
[2023-02-04] MEDS: Cefepime 1 GM in Sodium Chloride 0.9% 100 ML IVPB SCH (21:21)
[2023-02-04] MEDS: hydrALAZINE 20 MG/ML VIAL SLOW IVP PRN (22:32)
[2023-02-05] MEDS: Acetaminophen/Codeine 30-300mg Tablet PO SCH ×5 (00:27→23:25)
[2023-02-05] MEDS: Lactated Ringer's 1,000 ML IV SCH ×4 (00:34→23:26)
[2023-02-05] MEDS: Ipratropium/Albuterol 3 ML NEB NEB SCH ×6 (02:13→22:34)
[2023-02-05] MEDS: Acetaminophen 325 MG TAB PO SCH ×4 (03:05→21:29)
[2023-02-05] MEDS: hydrALAZINE 20 MG/ML VIAL SLOW IVP PRN ×4 (03:32→22:28)
[2023-02-05] MEDS: cloNIDine 0.3 MG TAB PO SCH ×4 (05:19→23:26)
[2023-02-05] MEDS: Oxazepam 10 MG CAP PO SCH ×4 (05:19→23:25)
[2023-02-05] MEDS: metroNIDAZOLE 500 MG in Premix Bag 1 BAG IVPB SCH ×3 (05:20→21:30)
[2023-02-05] MEDS: Metoclopramide HCl 10 MG/2 ML VIAL IVP SCH ×3 (05:20→21:29)
[2023-02-05] MEDS ORDERED: Midazolam HCl 2 mg/2 ml Vial IVP SCH (05:30)
[2023-02-05] MEDS: Cefepime 1 GM in Sodium Chloride 0.9% 100 ML IVPB SCH ×2 (07:24→21:26)
[2023-02-05] MEDS: Polyethylene Glycol 3350 17 GM Packet PO SCH (07:24)
[2023-02-05] MEDS: Pantoprazole 40 MG VIAL IVP SCH ×2 (07:26→21:30)
[2023-02-05] MEDS: carBAMazepine 200 MG TAB PO SCH ×3 (07:28→21:29)
[2023-02-05] MEDS: Senokot S 8.6-50 MG TAB PO SCH ×2 (07:28→21:29)
[2023-02-05] MEDS: Thiamine 100 MG TAB PER TUBE SCH (07:28)
[2023-02-05] MEDS: Metoprolol Tartrate 50 MG TAB PO SCH ×2 (07:29→21:29)
[2023-02-05] MEDS: Bisacodyl 10 MG SUPP PR SCH (07:29)
[2023-02-05] MEDS: Folic Acid 1 MG TAB PER TUBE SCH (07:29)
[2023-02-05 09:01] LABS: Hemoglobin 8.2 g/dL (14.0-18.0); Mean Corpuscular Hemoglobin 32.1 pg (27.0-31.0); Mean Corpuscular Volume 97.3 fl (78.0-98.0); Mean Platelet Volume 8.3 fL (7.4-10.4); Platelet Count 296 10x3/uL (130-400); RBC Distribution Width 14.3 % (11.5-14.5); Red Blood Cell (RBC) Count 2.56 mill/uL (4.70-6.10); White Blood Cell (WBC) Count 16.7 10x3/uL (4.8-10.8)
[2023-02-05 09:04] LABS: Anion Gap 14 mmol/L (10-20); BUN (Urea Nitrogen) 57 mg/dL (8.9-20.6); Calc. Creatinine Clearance 37 mL/min (70-130); Calcium 8.1 mg/dL (7.8-10.44); Carbon Dioxide 23 mmol/L (22-29); Chloride 115 mmol/L (98-107); Estimated GFR 28; Glucose 119 mg/dL (70-105); Magnesium 2.5 mg/dL (1.6-2.6); Phosphorus 2.8 mg/dL (2.3-4.7); Sodium 148 mmol/L (136-145)
[2023-02-05] MEDS ORDERED: Morphine 4 MG/ML VIAL SLOW IVP SCH (09:31)
[2023-02-05] MEDS ORDERED: Morphine 4 MG/ML VIAL ONE (09:31)
[2023-02-05] MEDS ORDERED: Morphine 2 MG/ML VIAL SLOW IVP PRN (09:39)
[2023-02-05 10:15] LABS: Band 8 % (5-11); Eosinophils 1 % (0-10); Lymphocytes 11 % (21-51); MDiff Complete? YES; Monocytes 5 % (0-10); Myelocyte 3 % (0-0); Neutrophil 72 % (42-75); RBC Morphology Normal
[2023-02-05 13:49] LABS: Vancomycin, Random 12.6 ug/mL (See Comment)
[2023-02-05] MEDS: Gabapentin 300 MG CAP PER TUBE SCH ×2 (14:00→21:28)
[2023-02-05] MEDS ORDERED: VANCOMYCIN 1.25 GM/250 ML BAG 1.25 GM in Premix Bag 1 BAG IVPB SCH (14:15)
[2023-02-05] MEDS: Scopolamine 1.5 mg/72 hour Patch TOP SCH (14:39)
[2023-02-05] MEDS: Melatonin 3 MG TAB PO PRN (23:26)
[2023-02-06] MEDS: Ipratropium/Albuterol 3 ML NEB NEB SCH ×6 (02:58→22:05)
[2023-02-06] MEDS: Acetaminophen 325 MG TAB PO SCH ×4 (03:00→21:15)
[2023-02-06] MEDS: hydrALAZINE 20 MG/ML VIAL SLOW IVP PRN ×2 (05:06→21:45)
[2023-02-06] MEDS: metroNIDAZOLE 500 MG in Premix Bag 1 BAG IVPB SCH ×3 (05:09→21:14)
[2023-02-06] MEDS: Acetaminophen/Codeine 30-300mg Tablet PO SCH ×3 (05:20→17:50)
[2023-02-06] MEDS: cloNIDine 0.3 MG TAB PO SCH ×3 (05:20→17:50)
[2023-02-06] MEDS: Metoclopramide HCl 10 MG/2 ML VIAL IVP SCH ×3 (05:21→21:13)
[2023-02-06] MEDS: Oxazepam 10 MG CAP PO SCH ×3 (05:21→17:50)
[2023-02-06 06:11] LABS: #Eosinphils 0.2 thou/uL (0.0-0.7); #Lymphocytes 0.9 thou/uL (1.20-3.40); #Monocytes 0.5 thou/uL (0.11-0.59); #Neutrophils 12.3 thou/uL (1.40-6.50); %Basophils 0.3 % (0.0-1.0); %Eosinophils 1.1 % (0.0-10.0); %Lymphocytes 6.7 % (21.0-51.0); %Monocytes 3.6 % (0.0-10.0); %Neutrophils 88.3 % (42.0-75.0); Hemoglobin 7.8 g/dL (14.0-18.0); Mean Corpuscular HGB CONC 32.5 g/dL (32.0-36.0); Mean Corpuscular Hemoglobin 32.1 pg (27.0-31.0); Mean Corpuscular Volume 98.9 fl (78.0-98.0); Mean Platelet Volume 8.6 fL (7.4-10.4); Platelet Count 283 10x3/uL (130-400); RBC Distribution Width 14.4 % (11.5-14.5); Red Blood Cell (RBC) Count 2.43 mill/uL (4.70-6.10); White Blood Cell (WBC) Count 13.9 10x3/uL (4.8-10.8)
[2023-02-06 06:39] LABS: Anion Gap 13 mmol/L (10-20); BUN (Urea Nitrogen) 55 mg/dL (8.9-20.6); Calc. Creatinine Clearance 41 mL/min (70-130); Calcium 7.9 mg/dL (7.8-10.44); Carbon Dioxide 23 mmol/L (22-29); Chloride 115 mmol/L (98-107); Estimated GFR 33; Glucose 135 mg/dL (70-105); Magnesium 2.4 mg/dL (1.6-2.6); Phosphorus 3.6 mg/dL (2.3-4.7); Potassium 3.9 mmol/L (3.5-5.1); Sodium 147 mmol/L (136-145)
[2023-02-06] MEDS: Lactated Ringer's 1,000 ML IV SCH ×2 (08:23→14:41)
[2023-02-06] MEDS: carBAMazepine 200 MG TAB PO SCH ×3 (08:24→21:15)
[2023-02-06] MEDS: Bisacodyl 10 MG SUPP PR SCH (08:24)
[2023-02-06] MEDS: Folic Acid 1 MG TAB PER TUBE SCH (08:25)
[2023-02-06] MEDS: Cefepime 1 GM in Sodium Chloride 0.9% 100 ML IVPB SCH (08:25)
[2023-02-06] MEDS: Gabapentin 300 MG CAP PER TUBE SCH ×2 (08:26→14:39)
[2023-02-06] MEDS: Metoprolol Tartrate 50 MG TAB PO SCH ×2 (08:27→21:15)
[2023-02-06] MEDS: Senokot S 8.6-50 MG TAB PO SCH ×2 (08:27→21:15)
[2023-02-06] MEDS: Thiamine 100 MG TAB PER TUBE SCH (08:27)
[2023-02-06] MEDS: Polyethylene Glycol 3350 17 GM Packet PO SCH (08:28)
[2023-02-06] MEDS: Pantoprazole 40 MG VIAL IVP SCH ×2 (08:28→21:15)
[2023-02-06 17:12] LABS: Vancomycin, Random 12.7 ug/mL (See Comment)
[2023-02-06] MEDS ORDERED: VANCOMYCIN 1.75 GM/500 ML BAG 1.75 GM in Premix Bag 1 BAG IVPB SCH (17:45)
[2023-02-06] MEDS: Ferrous Sulfate 325 MG TAB PO SCH (17:49)
[2023-02-06] MEDS: Cefepime 2 GM in Sodium Chloride 0.9% 100 ML IVPB SCH (21:14)
[2023-02-06] MEDS: Ascorbic Acid 500 mg Chewable Tablet PO SCH (21:15)
[2023-02-06] MEDS: Melatonin 3 MG TAB PO PRN (22:30)
[2023-02-06] MEDS: Morphine 2 MG/ML VIAL SLOW IVP PRN (22:53)
[2023-02-06] MEDS ORDERED: Labetalol HCl 100 MG/20 ML VIAL SLOW IVP SCH (23:00)
[2023-02-07] MEDS: Acetaminophen/Codeine 30-300mg Tablet PO SCH ×4 (00:23→16:26)
[2023-02-07] MEDS: Oxazepam 10 MG CAP PO SCH ×4 (00:24→17:08)
[2023-02-07] MEDS: cloNIDine 0.3 MG TAB PO SCH ×4 (00:24→17:07)
[2023-02-07] MEDS: Lactated Ringer's 1,000 ML IV SCH ×3 (00:25→12:47)
[2023-02-07] MEDS: Ipratropium/Albuterol 3 ML NEB NEB SCH ×6 (01:50→21:54)
[2023-02-07] MEDS: Acetaminophen 325 MG TAB PO SCH ×4 (03:54→21:05)
[2023-02-07] MEDS: hydrALAZINE 20 MG/ML VIAL SLOW IVP PRN (04:31)
[2023-02-07] MEDS: metroNIDAZOLE 500 MG in Premix Bag 1 BAG IVPB SCH ×3 (05:30→22:22)
[2023-02-07] MEDS: Metoclopramide HCl 10 MG/2 ML VIAL IVP SCH ×3 (05:30→22:21)
[2023-02-07] MEDS: Morphine 2 MG/ML VIAL SLOW IVP PRN (05:54)
[2023-02-07 07:21] LABS: Anion Gap 14 mmol/L (10-20); BUN (Urea Nitrogen) 52 mg/dL (8.9-20.6); Calc. Creatinine Clearance 47 mL/min (70-130); Calcium 7.9 mg/dL (7.8-10.44); Carbon Dioxide 21 mmol/L (22-29); Chloride 115 mmol/L (98-107); Estimated GFR 39; Glucose 107 mg/dL (70-105); Magnesium 2.3 mg/dL (1.6-2.6); Phosphorus 3.6 mg/dL (2.3-4.7); Potassium 3.9 mmol/L (3.5-5.1); Sodium 146 mmol/L (136-145)
[2023-02-07 08:14] LABS: Hemoglobin 8.4 g/dL (14.0-18.0); Mean Corpuscular HGB CONC 32.4 g/dL (32.0-36.0); Mean Platelet Volume 8.2 fL (7.4-10.4); Platelet Count 361 10x3/uL (130-400); RBC Distribution Width 14.3 % (11.5-14.5); Red Blood Cell (RBC) Count 2.62 mill/uL (4.70-6.10); White Blood Cell (WBC) Count 18.8 10x3/uL (4.8-10.8)
[2023-02-07 08:17] LABS: MDiff Complete? YES
[2023-02-07 08:18] LABS: Band 2 % (5-11); Lymphocytes 4 % (21-51); Monocytes 3 % (0-10); Neutrophil 90 % (42-75); Platelet Morphology Comment Appears Adequate; RBC Morphology Normal
[2023-02-07] MEDS: Cefepime 2 GM in Sodium Chloride 0.9% 100 ML IVPB SCH (09:17)
[2023-02-07] MEDS: Thiamine 100 MG TAB PER TUBE SCH (09:18)
[2023-02-07] MEDS: Metoprolol Tartrate 50 MG TAB PO SCH ×2 (09:18→21:05)
[2023-02-07] MEDS: Ferrous Sulfate 325 MG TAB PO SCH ×2 (09:18→16:10)
[2023-02-07] MEDS: Pantoprazole 40 MG VIAL IVP SCH ×2 (09:18→21:07)
[2023-02-07] MEDS: Senokot S 8.6-50 MG TAB PO SCH ×2 (09:18→22:03)
[2023-02-07] MEDS: carBAMazepine 200 MG TAB PO SCH ×3 (09:19→21:06)
[2023-02-07] MEDS: Folic Acid 1 MG TAB PER TUBE SCH (09:19)
[2023-02-07] MEDS: Ascorbic Acid 500 mg Chewable Tablet PO SCH ×2 (09:19→21:05)
[2023-02-07] MEDS: Polyethylene Glycol 3350 17 GM Packet PO SCH (09:20)
[2023-02-07] MEDS: Bisacodyl 10 MG SUPP PR SCH (09:20)
[2023-02-07] MEDS: NEOSTIGMINE 3 MG/3 ML SYR 3 MG/3 ML SYRINGE FS SCH ×3 (11:48→22:05)
[2023-02-07] MEDS ORDERED: NEOSTIGMINE 3 MG/3 ML SYR 3 MG/3 ML SYRINGE FS SCH (12:00)
[2023-02-07] MEDS ORDERED: Meropenem 1 GM in Sodium Chloride 0.9% 100 ML IVPB SCH ×2 (15:45→22:00)
[2023-02-07] MEDS ORDERED: Furosemide 20 MG/2 ML VIAL SLOW IVP SCH (19:28)
[2023-02-08] MEDS: cloNIDine 0.3 MG TAB PO SCH ×4 (00:23→17:15)
[2023-02-08] MEDS: Acetaminophen/Codeine 30-300mg Tablet PO SCH ×4 (00:23→17:15)
[2023-02-08] MEDS: Oxazepam 10 MG CAP PO SCH ×4 (00:23→17:15)
[2023-02-08] MEDS: Meropenem 1 GM in Sodium Chloride 0.9% 100 ML IVPB SCH ×3 (01:49→23:59)
[2023-02-08] MEDS: Ipratropium/Albuterol 3 ML NEB NEB SCH ×6 (02:05→22:16)
[2023-02-08 04:56] LABS: Band 12 % (5-11); Hypochromia SLIGHT = 6-15 cells (100X) (0-5/hpf); Lymphocytes 4 % (21-51); MDiff Complete? YES; Macrocytosis SLIGHT = 6-15 cells (100X) (0-5/hpf); Mean Corpuscular HGB CONC 31.9 g/dL (32.0-36.0); Mean Corpuscular Hemoglobin 31.2 pg (27.0-31.0); Mean Corpuscular Volume 98.1 fl (78.0-98.0); Mean Platelet Volume 8.1 fL (7.4-10.4); Neutrophil 84 % (42-75); Ovalocytes SLIGHT = 2-5 cells (100X) (0-1/hpf); Platelet Count 310 10x3/uL (130-400); Platelet Morphology Comment Appears Adequate; Polychromasia SLIGHT = 2-3 cells (100X) (0-2/hpf); RBC Distribution Width 14.1 % (11.5-14.5); Red Blood Cell (RBC) Count 2.55 mill/uL (4.70-6.10); White Blood Cell (WBC) Count 20.3 10x3/uL (4.8-10.8)
[2023-02-08 05:01] LABS: Anion Gap 9 mmol/L (10-20); BUN (Urea Nitrogen) 53 mg/dL (8.9-20.6); Calc. Creatinine Clearance 46 mL/min (70-130); Calcium 8.1 mg/dL (7.8-10.44); Carbon Dioxide 27 mmol/L (22-29); Chloride 118 mmol/L (98-107); Estimated GFR 34; Glucose 139 mg/dL (70-105); Magnesium 2.3 mg/dL (1.6-2.6); Phosphorus 2.3 mg/dL (2.3-4.7); Potassium 3.5 mmol/L (3.5-5.1); Sodium 150 mmol/L (136-145)
[2023-02-08 05:08] LABS: Actual Bicarbonate (HCO3a) 26.6 mEq/L (22-28); Base Excess (BEa) 1.9 mEq/L (-2.0 to +3.0); CO2 Tension 42.1 mmHg (35.0-45.0); Calcium, Ionized (arterial) 1.14 mmol/L (1.12-1.30); Carboxyhemoglobin (COHb) 0.6 gm% (0.0-3.0); Hemoglobin (Hb) 8.6 g/dL (14.0-18.0); Potassium - ABG Lab 3.58 mmol/L (3.70-5.30); pH, Arterial 7.42 (7.35-7.45)
[2023-02-08 05:15] LABS: ALV-art Gradient 258.775 mmHg (0-20); Puncture Site LRA
[2023-02-08] MEDS ORDERED: Midazolam HCl 2 mg/2 ml Vial ONE (06:05)
[2023-02-08] MEDS ORDERED: Midazolam HCl 2 mg/2 ml Vial SLOW IVP SCH (06:12)
[2023-02-08] MEDS: Morphine 2 MG/ML VIAL SLOW IVP PRN ×3 (06:14→20:45)
[2023-02-08] MEDS: NEOSTIGMINE 3 MG/3 ML SYR 3 MG/3 ML SYRINGE FS SCH ×2 (06:22→10:27)
[2023-02-08] MEDS: Acetaminophen 325 MG TAB PO SCH ×4 (06:22→20:19)
[2023-02-08] MEDS: metroNIDAZOLE 500 MG in Premix Bag 1 BAG IVPB SCH ×4 (06:35→21:29)
[2023-02-08] MEDS: Metoclopramide HCl 10 MG/2 ML VIAL IVP SCH ×3 (06:35→21:22)
[2023-02-08] MEDS: Ferrous Sulfate 325 MG TAB PO SCH ×2 (08:40→16:23)
[2023-02-08] MEDS: Polyethylene Glycol 3350 17 GM Packet PO SCH (08:40)
[2023-02-08] MEDS: Ascorbic Acid 500 mg Chewable Tablet PO SCH ×2 (08:41→20:17)
[2023-02-08] MEDS: carBAMazepine 200 MG TAB PO SCH ×3 (08:41→20:20)
[2023-02-08] MEDS: Senokot S 8.6-50 MG TAB PO SCH ×3 (08:42→20:17)
[2023-02-08] MEDS: Folic Acid 1 MG TAB PER TUBE SCH (08:42)
[2023-02-08] MEDS: Bisacodyl 10 MG SUPP PR SCH (08:43)
[2023-02-08] MEDS: Thiamine 100 MG TAB PER TUBE SCH (08:44)
[2023-02-08] MEDS: Metoprolol Tartrate 50 MG TAB PO SCH ×2 (08:45→20:17)
[2023-02-08] MEDS: Pantoprazole 40 MG VIAL IVP SCH ×2 (08:48→20:19)
[2023-02-08] MEDS ORDERED: Potassium Phosphate 30 MMOL in Sodium Chloride 0.9% 250 ML 250 ML IVPB SCH (09:30)
[2023-02-08] MEDS: Lactated Ringer's 1,000 ML IV SCH (12:37)
[2023-02-08] MEDS: Scopolamine 1.5 mg/72 hour Patch TOP SCH (15:10)
[2023-02-08] MEDS ORDERED: GASTROGRAFIN 30 ML BOT ONE (15:17)
[2023-02-08] MEDS: ADMIXTURE FEE SC SCH ×2 (15:59→21:22)
[2023-02-08] MEDS: PREFILLED SC SCH ×2 (15:59→21:22)
[2023-02-08] MEDS: NEOSTIGMINE SC SCH ×2 (15:59→21:22)
[2023-02-08] MEDS: Micafungin 100 MG in Sodium Chloride 0.9% 100 ML IVPB SCH (20:45)
[2023-02-08] MEDS: Melatonin 3 MG TAB PO PRN (20:46)
[2023-02-09] MEDS: Oxazepam 10 MG CAP PO SCH ×3 (00:02→13:00)
[2023-02-09] MEDS: Ipratropium/Albuterol 3 ML NEB NEB SCH ×3 (02:36→10:59)
[2023-02-09] MEDS: Acetaminophen 325 MG TAB PO SCH ×4 (03:12→20:47)
[2023-02-09] MEDS: Morphine 2 MG/ML VIAL SLOW IVP PRN ×3 (03:12→21:11)
[2023-02-09] MEDS: NEOSTIGMINE SC SCH (03:14)
[2023-02-09] MEDS: ADMIXTURE FEE SC SCH (03:14)
[2023-02-09] MEDS: PREFILLED SC SCH (03:14)
[2023-02-09] MEDS: metroNIDAZOLE 500 MG in Premix Bag 1 BAG IVPB SCH (05:09)
[2023-02-09] MEDS: Acetaminophen/Codeine 30-300mg Tablet PO SCH ×4 (05:09→17:43)
[2023-02-09] MEDS: cloNIDine 0.3 MG TAB PO SCH ×3 (05:11→13:47)
[2023-02-09] MEDS: Metoclopramide HCl 10 MG/2 ML VIAL IVP SCH ×3 (05:15→21:01)
[2023-02-09] MEDS ORDERED: Vecuronium 10 MG VIAL IVP SCH (07:15)
[2023-02-09] MEDS ORDERED: Midazolam HCl 2 mg/2 ml Vial SLOW IVP SCH (07:15)
[2023-02-09] MEDS ORDERED: fentaNYL 50 mcg/mL 1 mL Vial SLOW IVP SCH (07:15)
[2023-02-09 07:23] LABS: Anion Gap 12 mmol/L (10-20); BUN (Urea Nitrogen) 52 mg/dL (8.9-20.6); Calc. Creatinine Clearance 43 mL/min (70-130); Calcium 7.4 mg/dL (7.8-10.44); Carbon Dioxide 25 mmol/L (22-29); Chloride 118 mmol/L (98-107); Estimated GFR 32; Glucose 131 mg/dL (70-105); Hemoglobin 7.7 g/dL (14.0-18.0); Magnesium 2.4 mg/dL (1.6-2.6); Mean Corpuscular HGB CONC 31.4 g/dL (32.0-36.0); Mean Corpuscular Hemoglobin 31.5 pg (27.0-31.0); Mean Platelet Volume 8.2 fL (7.4-10.4); Phosphorus 5.1 mg/dL (2.3-4.7); Platelet Count 213 10x3/uL (130-400); Potassium 4.2 mmol/L (3.5-5.1); RBC Distribution Width 14.5 % (11.5-14.5); Red Blood Cell (RBC) Count 2.45 mill/uL (4.70-6.10); Sodium 151 mmol/L (136-145); White Blood Cell (WBC) Count 16.3 10x3/uL (4.8-10.8)
[2023-02-09 07:25] LABS: Band 6 % (5-11); Eosinophils 1 % (0-10); Lymphocytes 2 % (21-51); MDiff Complete? YES; Monocytes 2 % (0-10); Myelocyte 1 % (0-0); Neutrophil 88 % (42-75)
[2023-02-09] MEDS ORDERED: Furosemide 40 MG/4 ML VIAL SLOW IVP SCH (08:15)
[2023-02-09] MEDS: Ascorbic Acid 500 mg Chewable Tablet PO SCH ×2 (08:46→20:47)
[2023-02-09] MEDS: Senokot S 8.6-50 MG TAB PO SCH (08:46)
[2023-02-09] MEDS: Ferrous Sulfate 325 MG TAB PO SCH ×2 (08:47→17:43)
[2023-02-09] MEDS: Folic Acid 1 MG TAB PER TUBE SCH (08:47)
[2023-02-09] MEDS: carBAMazepine 200 MG TAB PO SCH ×3 (08:47→20:48)
[2023-02-09] MEDS: Saccharomyces boulardii 250 MG CAP PER TUBE SCH ×2 (08:48→20:47)
[2023-02-09] MEDS: Metoprolol Tartrate 50 MG TAB PO SCH (08:48)
[2023-02-09] MEDS: Thiamine 100 MG TAB PER TUBE SCH (08:48)
[2023-02-09] MEDS: Meropenem 1 GM in Sodium Chloride 0.9% 100 ML IVPB SCH ×2 (08:49→17:45)
[2023-02-09] MEDS ORDERED: Pantoprazole 40 MG VIAL IVP SCH (09:00)
[2023-02-09] MEDS: Polyethylene Glycol 3350 17 GM Packet PO SCH (09:01)
[2023-02-09 11:15] LABS: O2 Tension (PaO2), arterial 45.1 mmHg (80.0-100.0)
[2023-02-09] MEDS ORDERED: Sterile Water 10 ML ONE ×3 (12:01→17:57)
[2023-02-09] MEDS ORDERED: Midazolam HCl 2 mg/2 ml Vial SLOW IVP PRN (13:33)
[2023-02-09] MEDS ORDERED: Ipratropium 200 Puff Oral Inhaler INH SCH (14:30)
[2023-02-09] MEDS ORDERED: Albuterol 200 PUFF (6.7GM INHALER) INH SCH (14:30)
[2023-02-09] MEDS: Vecuronium 10 MG VIAL IVP SCH ×4 (14:35→21:04)
[2023-02-09] MEDS: Albuterol 200 PUFF (6.7GM INHALER) INH SCH ×3 (15:05→22:41)
[2023-02-09] MEDS: Ipratropium 200 Puff Oral Inhaler INH SCH ×3 (15:07→22:42)
[2023-02-09] MEDS: Lactated Ringer's 1,000 ML IV SCH (16:37)
[2023-02-09] MEDS: Midazolam HCl 100 MG in Admixture Fee 1 EACH IVPB PRN (18:11)
[2023-02-09] MEDS: Metoprolol Tartrate 25 MG TAB PO SCH (18:26)
[2023-02-09] MEDS: cloNIDine 0.2 MG TAB PO SCH (18:26)
[2023-02-09] MEDS: Vecuronium 10 MG VIAL IVP PRN ×2 (19:49→23:15)
[2023-02-09] MEDS: clonazePAM 1 MG TAB PO SCH (20:48)
[2023-02-09] MEDS: Micafungin 100 MG in Sodium Chloride 0.9% 100 ML IVPB SCH (20:53)
[2023-02-10] MEDS: Acetaminophen/Codeine 30-300mg Tablet PO SCH ×3 (00:46→14:35)
[2023-02-10] MEDS: cloNIDine 0.2 MG TAB PO SCH ×5 (00:47→23:27)
[2023-02-10] MEDS: Metoprolol Tartrate 25 MG TAB PO SCH ×5 (00:47→23:28)
[2023-02-10] MEDS: Meropenem 1 GM in Sodium Chloride 0.9% 100 ML IVPB SCH ×3 (00:48→17:57)
[2023-02-10] MEDS: Ipratropium 200 Puff Oral Inhaler INH SCH ×6 (02:22→21:50)
[2023-02-10] MEDS: Albuterol 200 PUFF (6.7GM INHALER) INH SCH ×6 (02:22→21:50)
[2023-02-10] MEDS: Acetaminophen 325 MG TAB PO SCH ×4 (02:56→21:06)
[2023-02-10] MEDS: Vecuronium 10 MG VIAL IVP PRN ×5 (02:57→21:06)
[2023-02-10] MEDS: Metoclopramide HCl 10 MG/2 ML VIAL IVP SCH ×3 (05:23→21:07)
[2023-02-10 07:27] LABS: Hemoglobin 7.6 g/dL (14.0-18.0); Mean Corpuscular HGB CONC 29.7 g/dL (32.0-36.0); Mean Corpuscular Hemoglobin 30.7 pg (27.0-31.0); Mean Platelet Volume 8.6 fL (7.4-10.4); Platelet Count 249 10x3/uL (130-400); RBC Distribution Width 14.7 % (11.5-14.5); Red Blood Cell (RBC) Count 2.47 mill/uL (4.70-6.10); White Blood Cell (WBC) Count 16.7 10x3/uL (4.8-10.8)
[2023-02-10 07:55] LABS: Anion Gap 13 mmol/L (10-20); BUN (Urea Nitrogen) 63 mg/dL (8.9-20.6); Calc. Creatinine Clearance 33 mL/min (70-130); Calcium 7.7 mg/dL (7.8-10.44); Carbon Dioxide 28 mmol/L (22-29); Chloride 114 mmol/L (98-107); Estimated GFR 23; Glucose 161 mg/dL (70-105); Magnesium 2.6 mg/dL (1.6-2.6); Phosphorus 6.5 mg/dL (2.3-4.7); Potassium 4.5 mmol/L (3.5-5.1); Sodium 150 mmol/L (136-145)
[2023-02-10 08:42] LABS: Band 6 % (5-11); Eosinophils 3 % (0-10); Lymphocytes 10 % (21-51); MDiff Complete? YES; Metamyelocyte 2 % (0-0); Monocytes 2 % (0-10); Myelocyte 2 % (0-0); Neutrophil 75 % (42-75); Nucleated RBC 1 % (0); Platelet Morphology Comment Appears Adequate; Polychromasia SLIGHT = 2-3 cells (100X) (0-2/hpf)
[2023-02-10] MEDS ORDERED: Lansoprazole 3 MG/ML ORAL SUSPENSION PER TUBE SCH (09:00)
[2023-02-10] MEDS ORDERED: Fentanyl CADD 100 ML IV SCH (09:15)
[2023-02-10] MEDS: Ferrous Sulfate 325 MG TAB PO SCH ×2 (09:18→17:57)
[2023-02-10] MEDS: Thiamine 100 MG TAB PER TUBE SCH (09:18)
[2023-02-10] MEDS: Lansoprazole 15 MG/5 ML (BATCHED)UDCUP PER TUBE SCH (09:18)
[2023-02-10] MEDS: clonazePAM 1 MG TAB PO SCH ×2 (09:19→21:08)
[2023-02-10] MEDS: Folic Acid 1 MG TAB PER TUBE SCH (09:19)
[2023-02-10] MEDS: Saccharomyces boulardii 250 MG CAP PER TUBE SCH ×2 (09:19→21:07)
[2023-02-10] MEDS: carBAMazepine 200 MG TAB PO SCH ×3 (09:19→21:07)
[2023-02-10] MEDS: Ascorbic Acid 500 mg Chewable Tablet PO SCH ×2 (09:20→21:08)
[2023-02-10] MEDS: Senokot S 8.6-50 MG TAB PO SCH ×2 (11:37→21:10)
[2023-02-10] MEDS: Polyethylene Glycol 3350 17 GM Packet PO SCH (11:37)
[2023-02-10] MEDS ORDERED: Fentanyl CADD 100 ML ONE (11:47)
[2023-02-10] MEDS: Fentanyl CADD 100 ML IV SCH (12:01)
[2023-02-10] MEDS ORDERED: [UNRECOGNIZED DRUG - OTHER] IVPB PRN (12:23)
[2023-02-10] MEDS: Micafungin 100 MG in Sodium Chloride 0.9% 100 ML IVPB SCH (21:08)
[2023-02-10] MEDS: Midazolam HCl 100 MG in Admixture Fee 1 EACH IVPB PRN (23:40)
[2023-02-11] MEDS: Vecuronium 10 MG VIAL IVP PRN ×7 (01:35→20:29)
[2023-02-11] MEDS: Albuterol 200 PUFF (6.7GM INHALER) INH SCH ×6 (02:09→21:44)
[2023-02-11] MEDS: Ipratropium 200 Puff Oral Inhaler INH SCH ×6 (02:09→21:44)
[2023-02-11] MEDS: Acetaminophen 325 MG TAB PO SCH ×4 (02:37→20:29)
[2023-02-11 04:41] LABS: Anion Gap 14 mmol/L (10-20); BUN (Urea Nitrogen) 71 mg/dL (8.9-20.6); Calc. Creatinine Clearance 31 mL/min (70-130); Calcium 7.4 mg/dL (7.8-10.44); Carbon Dioxide 28 mmol/L (22-29); Chloride 112 mmol/L (98-107); Estimated GFR 21; Glucose 114 mg/dL (70-105); Magnesium 2.6 mg/dL (1.6-2.6); Sodium 149 mmol/L (136-145)
[2023-02-11 04:42] LABS: Phosphorus 7.3 mg/dL (2.3-4.7)
[2023-02-11 05:04] LABS: Hemoglobin 8.1 g/dL (14.0-18.0); Mean Corpuscular HGB CONC 30.5 g/dL (32.0-36.0); Mean Corpuscular Hemoglobin 31.5 pg (27.0-31.0); Mean Platelet Volume 9.8 fL (7.4-10.4); Platelet Count 244 10x3/uL (130-400); RBC Distribution Width 15.1 % (11.5-14.5); Red Blood Cell (RBC) Count 2.57 mill/uL (4.70-6.10); White Blood Cell (WBC) Count 22.9 10x3/uL (4.8-10.8)
[2023-02-11 05:05] LABS: Band 1 % (5-11); Eosinophils 2 % (0-10); Hypochromia SLIGHT = 6-15 cells (100X) (0-5/hpf); Lymphocytes 7 % (21-51); MDiff Complete? YES; Macrocytosis SLIGHT = 6-15 cells (100X) (0-5/hpf); Monocytes 19 % (0-10); Neutrophil 71 % (42-75); Nucleated RBC 1 % (0); Platelet Morphology Comment Appears Adequate
[2023-02-11] MEDS: cloNIDine 0.2 MG TAB PO SCH ×4 (05:11→23:22)
[2023-02-11] MEDS: Metoclopramide HCl 10 MG/2 ML VIAL IVP SCH ×3 (05:11→21:48)
[2023-02-11] MEDS: Metoprolol Tartrate 25 MG TAB PO SCH ×4 (05:48→23:22)
[2023-02-11 07:22] LABS: Actual Bicarbonate (HCO3a) 29.5 mEq/L (22-28); Base Excess (BEa) -0.2 mEq/L (-2.0 to +3.0); Calcium, Ionized (arterial) 1.09 mmol/L (1.12-1.30); Carboxyhemoglobin (COHb) 0.8 gm% (0.0-3.0); Hemoglobin (Hb) 8.3 g/dL (14.0-18.0); O2 Tension (PaO2), arterial 65.3 mmHg (80.0-100.0); Potassium - ABG Lab 5.01 mmol/L (3.70-5.30)
[2023-02-11 07:27] LABS: pH, Arterial 7.15 (7.35-7.45)
[2023-02-11 07:28] LABS: CO2 Tension 85.9 mmHg (35.0-45.0); Puncture Site RBA
[2023-02-11 07:29] LABS: ALV-art Gradient 326.425 mmHg (0-20)
[2023-02-11] MEDS: Polyethylene Glycol 3350 17 GM Packet PO SCH (08:29)
[2023-02-11] MEDS: Ascorbic Acid 500 mg Chewable Tablet PO SCH ×2 (08:30→20:30)
[2023-02-11] MEDS: clonazePAM 1 MG TAB PO SCH ×2 (08:30→20:31)
[2023-02-11] MEDS: Saccharomyces boulardii 250 MG CAP PER TUBE SCH ×2 (08:30→20:30)
[2023-02-11] MEDS: Senokot S 8.6-50 MG TAB PO SCH ×2 (08:30→20:29)
[2023-02-11] MEDS: Lansoprazole 15 MG/5 ML (BATCHED)UDCUP PER TUBE SCH (08:30)
[2023-02-11] MEDS: carBAMazepine 200 MG TAB PO SCH ×3 (08:31→20:29)
[2023-02-11] MEDS: Thiamine 100 MG TAB PER TUBE SCH (08:31)
[2023-02-11] MEDS: Folic Acid 1 MG TAB PER TUBE SCH (08:31)
[2023-02-11] MEDS: Ferrous Sulfate 325 MG TAB PO SCH ×2 (08:32→17:34)
[2023-02-11] MEDS ORDERED: Calcium Chloride 13.6 MEQ in Sodium Chloride 0.9% 100 ML IVPB SCH (09:00)
[2023-02-11 11:41] LABS: Actual Bicarbonate (HCO3a) 28.9 mEq/L (22-28); Base Excess (BEa) 0.4 mEq/L (-2.0 to +3.0); Calcium, Ionized (arterial) 1.14 mmol/L (1.12-1.30); Carboxyhemoglobin (COHb) 0.9 gm% (0.0-3.0); O2 Tension (PaO2), arterial 64.4 mmHg (80.0-100.0); Potassium - ABG Lab 4.81 mmol/L (3.70-5.30); pH, Arterial 7.21 (7.35-7.45)
[2023-02-11 11:43] LABS: CO2 Tension 73.7 mmHg (35.0-45.0); Puncture Site RBA
[2023-02-11] MEDS: methylPREDNISolone Sod Succ 40 MG VIAL IVP SCH ×3 (11:43→23:21)
[2023-02-11 11:44] LABS: ALV-art Gradient 342.575 mmHg (0-20)
[2023-02-11] MEDS: Meropenem 1 GM in Sodium Chloride 0.9% 100 ML IVPB SCH ×2 (12:05)
[2023-02-11] MEDS: DAPTOmycin 500 MG in Sodium Chloride 0.9% 100 ML IVPB SCH (13:30)
[2023-02-11 14:32] LABS: Anion Gap 14 mmol/L (10-20); BUN (Urea Nitrogen) 73 mg/dL (8.9-20.6); Calcium 7.8 mg/dL (7.8-10.44); Carbon Dioxide 27 mmol/L (22-29); Chloride 113 mmol/L (98-107); Glucose 149 mg/dL (70-105); Potassium 4.9 mmol/L (3.5-5.1); Sodium 149 mmol/L (136-145)
[2023-02-11] MEDS ORDERED: Dextrose 5% in Water 1,000 ML IV SCH (14:45)
[2023-02-11 14:56] LABS: Calc. Creatinine Clearance 32 mL/min (70-130); Estimated GFR 22
[2023-02-11 15:45] LABS: Actual Bicarbonate (HCO3a) 29.8 mEq/L (22-28); Calcium, Ionized (arterial) 1.12 mmol/L (1.12-1.30); Carboxyhemoglobin (COHb) 0.9 gm% (0.0-3.0); Hemoglobin (Hb) 8.4 g/dL (14.0-18.0); Potassium - ABG Lab 5.19 mmol/L (3.70-5.30); pH, Arterial 7.21 (7.35-7.45)
[2023-02-11 15:48] LABS: CO2 Tension 76.5 mmHg (35.0-45.0); Puncture Site RBA
[2023-02-11 15:49] LABS: ALV-art Gradient 331.475 mmHg (0-20)
[2023-02-11 16:34] LABS: Bilirubin Negative (Negative); Blood, Urine 1+ (Negative); CAUTI Indications for Culture Fever or rigors; Clarity Clear (Clear); Glucose, Urine (Dipstick) Normal (Negative); Ketone, Urine Negative (Negative); Leukocyte 25 Leu/uL (Negative); Nitrite Negative (Negative); Protein, Urine (Dipstick) 50 mg/dL (Neg-Trace); RBC/HPF 0-3 HPF (0-3); Specific Gravity, Urine 1.018 (1.002-1.036); Squamous Epithelial 0-3 HPF (0-3); Urobilinogen Normal mg/dL (Less than 2)
[2023-02-11 16:39] LABS: Bacteria/HPF 1+ HPF (None Seen)
[2023-02-11 16:41] LABS: Urine Culture Reflex No No
[2023-02-11] MEDS ORDERED: cloNIDine 0.2 MG TAB PO SCH ×2 (18:48→19:00)
[2023-02-11] MEDS: Micafungin 100 MG in Sodium Chloride 0.9% 100 ML IVPB SCH (21:45)
[2023-02-12] MEDS: Vecuronium 10 MG VIAL IVP PRN ×4 (00:21→08:46)
[2023-02-12] MEDS: Meropenem 1 GM in Sodium Chloride 0.9% 100 ML IVPB SCH ×3 (00:21→17:37)
[2023-02-12] MEDS: Albuterol 200 PUFF (6.7GM INHALER) INH SCH ×6 (01:52→21:53)
[2023-02-12] MEDS: Ipratropium 200 Puff Oral Inhaler INH SCH ×6 (01:53→21:53)
[2023-02-12] MEDS: Acetaminophen 325 MG TAB PO SCH ×4 (03:15→22:21)
[2023-02-12] MEDS: hydrALAZINE 20 MG/ML VIAL SLOW IVP PRN ×4 (03:16→22:29)
[2023-02-12] MEDS: Metoclopramide HCl 10 MG/2 ML VIAL IVP SCH ×3 (05:18→19:36)
[2023-02-12] MEDS: methylPREDNISolone Sod Succ 40 MG VIAL IVP SCH ×4 (05:18→22:27)
[2023-02-12] MEDS: Metoprolol Tartrate 25 MG TAB PO SCH ×4 (05:19→22:27)
[2023-02-12] MEDS: cloNIDine 0.2 MG TAB PO SCH ×4 (05:19→22:27)
[2023-02-12] MEDS: Fentanyl CADD 100 ML IV SCH (05:43)
[2023-02-12] MEDS: Midazolam HCl 100 MG in Admixture Fee 1 EACH IVPB PRN (06:15)
[2023-02-12 06:45] LABS: Anion Gap 16 mmol/L (10-20); BUN (Urea Nitrogen) 73 mg/dL (8.9-20.6); Calc. Creatinine Clearance 38 mL/min (70-130); Calcium 7.8 mg/dL (7.8-10.44); Carbon Dioxide 20 mmol/L (22-29); Chloride 114 mmol/L (98-107); Estimated GFR 26; Glucose 151 mg/dL (70-105); Magnesium 2.6 mg/dL (1.6-2.6); Potassium 5.7 mmol/L (3.5-5.1); Sodium 144 mmol/L (136-145)
[2023-02-12 06:56] LABS: Phosphorus 5.8 mg/dL (2.3-4.7)
[2023-02-12 07:06] LABS: Hemoglobin 8.6 g/dL (14.0-18.0); Mean Corpuscular HGB CONC 28.2 g/dL (32.0-36.0); Mean Corpuscular Hemoglobin 29.6 pg (27.0-31.0); Mean Platelet Volume 9.9 fL (7.4-10.4); Platelet Count 144 10x3/uL (130-400); RBC Distribution Width 15.2 % (11.5-14.5); Red Blood Cell (RBC) Count 2.91 mill/uL (4.70-6.10); White Blood Cell (WBC) Count 14.8 10x3/uL (4.8-10.8)
[2023-02-12 07:31] LABS: Actual Bicarbonate (HCO3a) 29.1 mEq/L (22-28); Base Excess (BEa) 1.8 mEq/L (-2.0 to +3.0); Calcium, Ionized (arterial) 1.13 mmol/L (1.12-1.30); Carboxyhemoglobin (COHb) 0.8 gm% (0.0-3.0); Hemoglobin (Hb) 9.9 g/dL (14.0-18.0); Potassium - ABG Lab 4.51 mmol/L (3.70-5.30)
[2023-02-12 07:33] LABS: Puncture Site LRA
[2023-02-12 08:29] LABS: Band 6 % (5-11); Hypochromia MODERATE=16-30 cells (100X) (0-5/hpf); Lymphocytes 9 % (21-51); MDiff Complete? YES; Metamyelocyte 4 % (0-0); Monocytes 2 % (0-10); Myelocyte 1 % (0-0); Neutrophil 78 % (42-75); Nucleated RBC 4 % (0); Platelet Clumps SLIGHT; Platelet Morphology Comment Appears Adequate; Polychromasia MODERATE = 3-4 cells (100X) (0-2/hpf)
[2023-02-12] MEDS: Saccharomyces boulardii 250 MG CAP PER TUBE SCH ×2 (08:30→22:22)
[2023-02-12] MEDS: Senokot S 8.6-50 MG TAB PO SCH ×2 (08:30→19:36)
[2023-02-12] MEDS: Ascorbic Acid 500 mg Chewable Tablet PO SCH ×2 (08:30→22:22)
[2023-02-12] MEDS: Thiamine 100 MG TAB PER TUBE SCH (08:30)
[2023-02-12] MEDS: Ferrous Sulfate 325 MG TAB PO SCH ×2 (08:30→17:37)
[2023-02-12] MEDS: clonazePAM 1 MG TAB PO SCH ×2 (08:30→22:22)
[2023-02-12] MEDS: Folic Acid 1 MG TAB PER TUBE SCH (08:31)
[2023-02-12] MEDS: Lansoprazole 15 MG/5 ML (BATCHED)UDCUP PER TUBE SCH (08:31)
[2023-02-12] MEDS: carBAMazepine 200 MG TAB PO SCH ×3 (08:31→22:22)
[2023-02-12] MEDS: Polyethylene Glycol 3350 17 GM Packet PO SCH (08:32)
[2023-02-12 09:40] LABS: Anion Gap 14 mmol/L (10-20); BUN (Urea Nitrogen) 74 mg/dL (8.9-20.6); Calc. Creatinine Clearance 38 mL/min (70-130); Calcium 7.9 mg/dL (7.8-10.44); Carbon Dioxide 26 mmol/L (22-29); Chloride 112 mmol/L (98-107); Estimated GFR 27; Glucose 152 mg/dL (70-105); Potassium 4.5 mmol/L (3.5-5.1); Sodium 147 mmol/L (136-145)
[2023-02-12 09:53] LABS: Actual Bicarbonate (HCO3a) 29.7 mEq/L (22-28); Base Excess (BEa) 2.1 mEq/L (-2.0 to +3.0); Calcium, Ionized (arterial) 1.15 mmol/L (1.12-1.30); Carboxyhemoglobin (COHb) 0.6 gm% (0.0-3.0); Hemoglobin (Hb) 8.4 g/dL (14.0-18.0); Potassium - ABG Lab 4.43 mmol/L (3.70-5.30); pH, Arterial 7.28 (7.35-7.45)
[2023-02-12 09:55] LABS: Puncture Site LRA
[2023-02-12 09:56] LABS: ALV-art Gradient 407.775 mmHg (0-20)
[2023-02-12] MEDS: DAPTOmycin 500 MG in Sodium Chloride 0.9% 100 ML IVPB SCH (14:27)
[2023-02-12 17:23] LABS: Actual Bicarbonate (HCO3a) 30.2 mEq/L (22-28); Base Excess (BEa) 5.1 mEq/L (-2.0 to +3.0); CO2 Tension 47.9 mmHg (35.0-45.0); Carboxyhemoglobin (COHb) 0.3 gm% (0.0-3.0); Hemoglobin (Hb) 8.4 g/dL (14.0-18.0); O2 Tension (PaO2), arterial 69.8 mmHg (80.0-100.0); Potassium - ABG Lab 3.81 mmol/L (3.70-5.30); pH, Arterial 7.42 (7.35-7.45)
[2023-02-12 17:24] LABS: Puncture Site LRA
[2023-02-12 17:25] LABS: ALV-art Gradient 369.425 mmHg (0-20)
[2023-02-12] MEDS ORDERED: Calcium Chloride 13.6 MEQ in Sodium Chloride 0.9% 100 ML IVPB SCH (17:45)
[2023-02-12] MEDS: Fluconazole In NaCl,Iso-Osm 200 MG in Premix Bag 1 BAG IVPB SCH (19:35)
[2023-02-13] MEDS: Meropenem 1 GM in Sodium Chloride 0.9% 100 ML IVPB SCH ×3 (00:54→18:26)
[2023-02-13] MEDS: Ipratropium 200 Puff Oral Inhaler INH SCH ×6 (01:58→21:55)
[2023-02-13] MEDS: Albuterol 200 PUFF (6.7GM INHALER) INH SCH ×6 (01:58→21:55)
[2023-02-13] MEDS ORDERED: Artificial Tear Sol 15 ML BOT EA EYE PRN (03:54)
[2023-02-13] MEDS: Acetaminophen 325 MG TAB PO SCH ×4 (04:00→20:14)
[2023-02-13] MEDS: methylPREDNISolone Sod Succ 40 MG VIAL IVP SCH ×4 (05:34→23:22)
[2023-02-13] MEDS: cloNIDine 0.2 MG TAB PO SCH ×4 (05:34→23:22)
[2023-02-13] MEDS: Metoprolol Tartrate 25 MG TAB PO SCH ×4 (05:34→23:23)
[2023-02-13] MEDS: Metoclopramide HCl 10 MG/2 ML VIAL IVP SCH ×3 (05:35→22:29)
[2023-02-13 06:14] LABS: Hemoglobin 7.9 g/dL (14.0-18.0); Mean Corpuscular HGB CONC 32.4 g/dL (32.0-36.0); Mean Corpuscular Hemoglobin 31.4 pg (27.0-31.0); Mean Corpuscular Volume 96.8 fl (78.0-98.0); Mean Platelet Volume 8.7 fL (7.4-10.4); Platelet Count 319 10x3/uL (130-400); RBC Distribution Width 15.2 % (11.5-14.5)
[2023-02-13 06:28] LABS: ALT (SGPT) 17 U/L (8-55); AST (SGOT) 40 U/L (5-34); Albumin 2.2 g/dL (3.5-5.0); Alkaline Phosphatase 69 U/L (40-110); Anion Gap 12 mmol/L (10-20); BUN (Urea Nitrogen) 75 mg/dL (8.9-20.6); Bilirubin, Total 0.2 mg/dL (0.2-1.2); Calc. Creatinine Clearance 48 mL/min (70-130); Calcium 8.1 mg/dL (7.8-10.44); Carbon Dioxide 25 mmol/L (22-29); Chloride 115 mmol/L (98-107); Estimated GFR 35; Globulin 3.9 g/dL (2.4-3.5); Glucose 124 mg/dL (70-105); Magnesium 2.5 mg/dL (1.6-2.6); Potassium 3.3 mmol/L (3.5-5.1); Protein, Total 6.1 g/dL (6.0-8.3); Sodium 149 mmol/L (136-145)
[2023-02-13 06:32] LABS: Phosphorus 2.6 mg/dL (2.3-4.7)
[2023-02-13 06:55] LABS: Band 3 % (5-11); Lymphocytes 7 % (21-51); MDiff Complete? YES; Metamyelocyte 3 % (0-0); Monocytes 10 % (0-10); Myelocyte 2 % (0-0); Neutrophil 75 % (42-75); Nucleated RBC 4 % (0); Polychromasia SLIGHT = 2-3 cells (100X) (0-2/hpf)
[2023-02-13 07:01] LABS: Actual Bicarbonate (HCO3a) 28.7 mEq/L (22-28); Base Excess (BEa) 4.6 mEq/L (-2.0 to +3.0); CO2 Tension 40.7 mmHg (35.0-45.0); Calcium, Ionized (arterial) 1.17 mmol/L (1.12-1.30); Carboxyhemoglobin (COHb) 0.7 gm% (0.0-3.0); Hemoglobin (Hb) 13.9 g/dL (14.0-18.0); O2 Tension (PaO2), arterial 78.4 mmHg (80.0-100.0); Potassium - ABG Lab 3.11 mmol/L (3.70-5.30); pH, Arterial 7.47 (7.35-7.45)
[2023-02-13 07:06] LABS: Puncture Site RBA
[2023-02-13 07:07] LABS: ALV-art Gradient 334.175 mmHg (0-20)
[2023-02-13] MEDS ORDERED: Potassium Phosphate 30 MMOL in Sodium Chloride 0.9% 250 ML 250 ML IVPB SCH (07:45)
[2023-02-13] MEDS: Senokot S 8.6-50 MG TAB PO SCH ×2 (08:25→20:13)
[2023-02-13] MEDS: Folic Acid 1 MG TAB PER TUBE SCH (08:25)
[2023-02-13] MEDS: Ferrous Sulfate 325 MG TAB PO SCH (08:26)
[2023-02-13] MEDS: Ascorbic Acid 500 mg Chewable Tablet PO SCH ×2 (08:26→20:14)
[2023-02-13] MEDS: Lansoprazole 15 MG/5 ML (BATCHED)UDCUP PER TUBE SCH (08:26)
[2023-02-13] MEDS: carBAMazepine 200 MG TAB PO SCH ×3 (08:26→20:13)
[2023-02-13] MEDS: Saccharomyces boulardii 250 MG CAP PER TUBE SCH ×2 (08:26→20:14)
[2023-02-13] MEDS: clonazePAM 1 MG TAB PO SCH ×2 (08:26→20:14)
[2023-02-13] MEDS: Thiamine 100 MG TAB PER TUBE SCH (08:26)
[2023-02-13] MEDS: Polyethylene Glycol 3350 17 GM Packet PO SCH (08:27)
[2023-02-13] MEDS: hydrALAZINE 20 MG/ML VIAL SLOW IVP PRN (10:25)
[2023-02-13] MEDS: Acetaminophen/Codeine 30-300mg Tablet PO PRN ×2 (10:46→19:24)
[2023-02-13] MEDS: DAPTOmycin 500 MG in Sodium Chloride 0.9% 100 ML IVPB SCH (13:41)
[2023-02-13] MEDS: Midazolam HCl 100 MG in Admixture Fee 1 EACH IVPB PRN (16:16)
[2023-02-13] MEDS: Fluconazole In NaCl,Iso-Osm 200 MG in Premix Bag 1 BAG IVPB SCH (19:23)
[2023-02-13] MEDS: Fentanyl CADD 100 ML IV SCH (19:28)
[2023-02-13] MEDS: Morphine 2 MG/ML VIAL SLOW IVP PRN (23:21)
[2023-02-14] MEDS: Meropenem 1 GM in Sodium Chloride 0.9% 100 ML IVPB SCH ×3 (01:04→16:33)
[2023-02-14] MEDS: Morphine 2 MG/ML VIAL SLOW IVP PRN ×2 (01:22→10:35)
[2023-02-14] MEDS: Albuterol 200 PUFF (6.7GM INHALER) INH SCH ×6 (02:13→22:02)
[2023-02-14] MEDS: Ipratropium 200 Puff Oral Inhaler INH SCH ×6 (02:14→22:02)
[2023-02-14] MEDS: Acetaminophen/Codeine 30-300mg Tablet PO PRN (02:58)
[2023-02-14] MEDS: Acetaminophen 325 MG TAB PO SCH ×4 (02:58→20:59)
[2023-02-14] MEDS: Metoclopramide HCl 10 MG/2 ML VIAL IVP SCH ×3 (05:49→22:52)
[2023-02-14] MEDS: cloNIDine 0.2 MG TAB PO SCH ×3 (05:49→18:04)
[2023-02-14] MEDS: Metoprolol Tartrate 25 MG TAB PO SCH ×3 (05:49→17:10)
[2023-02-14] MEDS: methylPREDNISolone Sod Succ 40 MG VIAL IVP SCH ×2 (05:49→12:50)
[2023-02-14 07:30] LABS: Base Excess (BEa) 2.5 mEq/L (-2.0 to +3.0); Calcium, Ionized (arterial) 1.14 mmol/L (1.12-1.30); Carboxyhemoglobin (COHb) 0.6 gm% (0.0-3.0); Hemoglobin (Hb) 9.6 g/dL (14.0-18.0); O2 Tension (PaO2), arterial 95.5 mmHg (80.0-100.0); Potassium - ABG Lab 4.16 mmol/L (3.70-5.30); pH, Arterial 7.29 (7.35-7.45)
[2023-02-14 07:50] LABS: CO2 Tension 63.7 mmHg (35.0-45.0)
[2023-02-14 07:51] LABS: ALV-art Gradient 288.325 mmHg (0-20); Puncture Site RBA
[2023-02-14] MEDS ORDERED: Potassium Chloride 20 MEQ in Premix Bag 1 BAG IVPB SCH (08:30)
[2023-02-14] MEDS: Folic Acid 1 MG TAB PER TUBE SCH (08:48)
[2023-02-14] MEDS: Senokot S 8.6-50 MG TAB PO SCH ×2 (08:48→21:00)
[2023-02-14] MEDS: Thiamine 100 MG TAB PER TUBE SCH (08:48)
[2023-02-14] MEDS: Saccharomyces boulardii 250 MG CAP PER TUBE SCH ×2 (08:48→21:00)
[2023-02-14] MEDS: carBAMazepine 200 MG TAB PO SCH ×3 (08:48→21:00)
[2023-02-14] MEDS: Ascorbic Acid 500 mg Chewable Tablet PO SCH ×2 (08:48→21:00)
[2023-02-14] MEDS: clonazePAM 1 MG TAB PO SCH ×2 (08:48→21:00)
[2023-02-14] MEDS: Polyethylene Glycol 3350 17 GM Packet PO SCH (08:49)
[2023-02-14] MEDS: Lansoprazole 15 MG/5 ML (BATCHED)UDCUP PER TUBE SCH (08:50)
[2023-02-14 09:10] LABS: #Eosinphils 0.1 thou/uL (0.0-0.7); #Lymphocytes 0.8 thou/uL (1.20-3.40); #Monocytes 0.7 thou/uL (0.11-0.59); #Neutrophils 12.6 thou/uL (1.40-6.50); %Eosinophils 0.8 % (0.0-10.0); %Lymphocytes 5.9 % (21.0-51.0); %Monocytes 5.1 % (0.0-10.0); %Neutrophils 88.2 % (42.0-75.0); Hemoglobin 7.5 g/dL (14.0-18.0); Mean Corpuscular HGB CONC 31.6 g/dL (32.0-36.0); Mean Corpuscular Hemoglobin 31.4 pg (27.0-31.0); Mean Corpuscular Volume 99.4 fl (78.0-98.0); Mean Platelet Volume 8.4 fL (7.4-10.4); Platelet Count 313 10x3/uL (130-400); Red Blood Cell (RBC) Count 2.38 mill/uL (4.70-6.10); White Blood Cell (WBC) Count 14.3 10x3/uL (4.8-10.8)
[2023-02-14] MEDS: hydrALAZINE 20 MG/ML VIAL SLOW IVP PRN ×2 (09:18→14:35)
[2023-02-14 09:25] LABS: Anion Gap 15 mmol/L (10-20); BUN (Urea Nitrogen) 72 mg/dL (8.9-20.6); Calc. Creatinine Clearance 58 mL/min (70-130); Calcium 8.1 mg/dL (7.8-10.44); Carbon Dioxide 23 mmol/L (22-29); Chloride 114 mmol/L (98-107); Estimated GFR 45; Glucose 139 mg/dL (70-105); Magnesium 2.4 mg/dL (1.6-2.6); Potassium 4.3 mmol/L (3.5-5.1); Sodium 148 mmol/L (136-145)
[2023-02-14 09:31] LABS: Phosphorus 5.4 mg/dL (2.3-4.7)
[2023-02-14] MEDS: Metoprolol Tartrate 50 MG TAB PO SCH ×3 (10:38→22:52)
[2023-02-14 12:33] LABS: Actual Bicarbonate (HCO3a) 32.2 mEq/L (22-28); Base Excess (BEa) 4.9 mEq/L (-2.0 to +3.0); Calcium, Ionized (arterial) 1.16 mmol/L (1.12-1.30); Carboxyhemoglobin (COHb) 0.6 gm% (0.0-3.0); Hemoglobin (Hb) 8.1 g/dL (14.0-18.0); O2 Tension (PaO2), arterial 98.2 mmHg (80.0-100.0); Potassium - ABG Lab 4.24 mmol/L (3.70-5.30); pH, Arterial 7.31 (7.35-7.45)
[2023-02-14 12:36] LABS: CO2 Tension 65.8 mmHg (35.0-45.0); Puncture Site RBA
[2023-02-14] MEDS: DAPTOmycin 500 MG in Sodium Chloride 0.9% 100 ML IVPB SCH (12:49)
[2023-02-14] MEDS: Amino Acids 4.25 %/Dextrose 5% 1,000 ML IV SCH (16:34)
[2023-02-14] MEDS: Fluconazole In NaCl,Iso-Osm 200 MG in Premix Bag 1 BAG IVPB SCH (18:04)
[2023-02-15] MEDS: cloNIDine 0.2 MG TAB PO SCH ×4 (00:39→17:35)
[2023-02-15] MEDS: Midazolam HCl 100 MG in Admixture Fee 1 EACH IVPB PRN (00:40)
[2023-02-15] MEDS: Meropenem 1 GM in Sodium Chloride 0.9% 100 ML IVPB SCH ×3 (00:40→16:27)
[2023-02-15] MEDS: Morphine 2 MG/ML VIAL SLOW IVP PRN (00:47)
[2023-02-15] MEDS: Acetaminophen/Codeine 30-300mg Tablet PO PRN (01:38)
[2023-02-15] MEDS: Ipratropium 200 Puff Oral Inhaler INH SCH ×6 (02:46→21:42)
[2023-02-15] MEDS: Albuterol 200 PUFF (6.7GM INHALER) INH SCH ×6 (02:46→21:43)
[2023-02-15] MEDS: Fentanyl CADD 100 ML IV SCH (03:05)
[2023-02-15] MEDS: Acetaminophen 325 MG TAB PO SCH ×4 (03:05→21:21)
[2023-02-15 04:41] LABS: Phosphorus 4.4 mg/dL (2.3-4.7)
[2023-02-15 04:44] LABS: ALT (SGPT) 27 U/L (8-55); AST (SGOT) 37 U/L (5-34); Albumin 2.4 g/dL (3.5-5.0); Alkaline Phosphatase 81 U/L (40-110); Anion Gap 12 mmol/L (10-20); BUN (Urea Nitrogen) 64 mg/dL (8.9-20.6); Bilirubin, Total 0.2 mg/dL (0.2-1.2); Calc. Creatinine Clearance 74 mL/min (70-130); Calcium 8.3 mg/dL (7.8-10.44); Carbon Dioxide 29 mmol/L (22-29); Chloride 115 mmol/L (98-107); Estimated GFR 60; Globulin 3.6 g/dL (2.4-3.5); Glucose 101 mg/dL (70-105); Magnesium 2.2 mg/dL (1.6-2.6); Potassium 3.9 mmol/L (3.5-5.1)
[2023-02-15 04:47] LABS: Sodium 152 mmol/L (136-145)
[2023-02-15 05:14] LABS: #Eosinphils 0.3 thou/uL (0.0-0.7); #Lymphocytes 1.4 thou/uL (1.20-3.40); #Monocytes 1.5 thou/uL (0.11-0.59); #Neutrophils 11.2 thou/uL (1.40-6.50); %Eosinophils 1.9 % (0.0-10.0); %Lymphocytes 9.7 % (21.0-51.0); %Monocytes 10.7 % (0.0-10.0); %Neutrophils 77.6 % (42.0-75.0); Hemoglobin 7.4 g/dL (14.0-18.0); Mean Corpuscular HGB CONC 31.2 g/dL (32.0-36.0); Mean Corpuscular Hemoglobin 31.3 pg (27.0-31.0); Mean Platelet Volume 8.4 fL (7.4-10.4); Platelet Count 298 10x3/uL (130-400); RBC Distribution Width 16.5 % (11.5-14.5); Red Blood Cell (RBC) Count 2.36 mill/uL (4.70-6.10); White Blood Cell (WBC) Count 14.4 10x3/uL (4.8-10.8)
[2023-02-15] MEDS: Metoclopramide HCl 10 MG/2 ML VIAL IVP SCH ×3 (06:00→21:27)
[2023-02-15] MEDS: Metoprolol Tartrate 50 MG TAB PO SCH ×4 (06:01→22:16)
[2023-02-15 07:31] LABS: Actual Bicarbonate (HCO3a) 34.6 mEq/L (22-28); Base Excess (BEa) 8.6 mEq/L (-2.0 to +3.0); CO2 Tension 57.8 mmHg (35.0-45.0); Calcium, Ionized (arterial) 1.11 mmol/L (1.12-1.30); Carboxyhemoglobin (COHb) 0.6 gm% (0.0-3.0); Hemoglobin (Hb) 8.2 g/dL (14.0-18.0); O2 Tension (PaO2), arterial 99.3 mmHg (80.0-100.0); Potassium - ABG Lab 3.82 mmol/L (3.70-5.30)
[2023-02-15 07:35] LABS: Puncture Site RRA
[2023-02-15] MEDS ORDERED: Dextrose 5% in Water 1,000 ML IV SCH (08:00)
[2023-02-15] MEDS: Saccharomyces boulardii 250 MG CAP PER TUBE SCH ×2 (08:09→21:21)
[2023-02-15] MEDS: Thiamine 100 MG TAB PER TUBE SCH (08:09)
[2023-02-15] MEDS: Senokot S 8.6-50 MG TAB PO SCH ×2 (08:09→21:21)
[2023-02-15] MEDS: clonazePAM 1 MG TAB PO SCH ×2 (08:09→21:21)
[2023-02-15] MEDS: Folic Acid 1 MG TAB PER TUBE SCH (08:09)
[2023-02-15] MEDS: Ascorbic Acid 500 mg Chewable Tablet PO SCH ×2 (08:09→21:20)
[2023-02-15] MEDS: carBAMazepine 200 MG TAB PO SCH ×3 (08:10→21:21)
[2023-02-15] MEDS: Polyethylene Glycol 3350 17 GM Packet PO SCH (08:10)
[2023-02-15] MEDS: Lansoprazole 15 MG/5 ML (BATCHED)UDCUP PER TUBE SCH (08:31)
[2023-02-15] MEDS: hydrALAZINE 20 MG/ML VIAL SLOW IVP PRN ×2 (11:35→22:21)
[2023-02-15] MEDS: DAPTOmycin 500 MG in Sodium Chloride 0.9% 100 ML IVPB SCH (13:39)
[2023-02-15] MEDS: Amino Acids 4.25 %/Dextrose 5% 1,000 ML IV SCH (17:36)
[2023-02-15] MEDS: Fluconazole In NaCl,Iso-Osm 200 MG in Premix Bag 1 BAG IVPB SCH (18:34)
[2023-02-16] MEDS: Meropenem 1 GM in Sodium Chloride 0.9% 100 ML IVPB SCH (00:10)
[2023-02-16] MEDS: cloNIDine 0.2 MG TAB PO SCH ×5 (00:10→22:57)
[2023-02-16] MEDS: Acetaminophen/Codeine 30-300mg Tablet PO PRN (01:13)
[2023-02-16] MEDS: Albuterol 200 PUFF (6.7GM INHALER) INH SCH ×6 (02:18→21:58)
[2023-02-16] MEDS: Ipratropium 200 Puff Oral Inhaler INH SCH ×6 (02:18→21:58)
[2023-02-16] MEDS: Acetaminophen 325 MG TAB PO SCH ×4 (03:28→20:07)
[2023-02-16 04:09] LABS: #Eosinphils 0.4 thou/uL (0.0-0.7); #Lymphocytes 1.1 thou/uL (1.20-3.40); #Neutrophils 11.3 thou/uL (1.40-6.50); %Basophils 0.1 % (0.0-1.0); %Eosinophils 2.7 % (0.0-10.0); %Lymphocytes 7.8 % (21.0-51.0); %Monocytes 7.3 % (0.0-10.0); %Neutrophils 82.1 % (42.0-75.0); Hemoglobin 7.5 g/dL (14.0-18.0); Mean Corpuscular HGB CONC 31.1 g/dL (32.0-36.0); Mean Corpuscular Hemoglobin 31.1 pg (27.0-31.0); Mean Platelet Volume 8.6 fL (7.4-10.4); Platelet Count 274 10x3/uL (130-400); Red Blood Cell (RBC) Count 2.41 mill/uL (4.70-6.10); White Blood Cell (WBC) Count 13.8 10x3/uL (4.8-10.8)
[2023-02-16 04:38] LABS: Anion Gap 11 mmol/L (10-20); BUN (Urea Nitrogen) 52 mg/dL (8.9-20.6); Calc. Creatinine Clearance 90 mL/min (70-130); Calcium 8.2 mg/dL (7.8-10.44); Carbon Dioxide 30 mmol/L (22-29); Chloride 113 mmol/L (98-107); Estimated GFR 75; Glucose 99 mg/dL (70-105); Magnesium 2.1 mg/dL (1.6-2.6); Potassium 3.7 mmol/L (3.5-5.1); Sodium 150 mmol/L (136-145)
[2023-02-16 05:03] LABS: Phosphorus 3.5 mg/dL (2.3-4.7)
[2023-02-16] MEDS: hydrALAZINE 20 MG/ML VIAL SLOW IVP PRN ×3 (05:21→20:03)
[2023-02-16] MEDS: Metoprolol Tartrate 50 MG TAB PO SCH ×3 (06:27→22:57)
[2023-02-16] MEDS: Metoclopramide HCl 10 MG/2 ML VIAL IVP SCH ×3 (06:27→22:56)
[2023-02-16] MEDS ORDERED: Fentanyl CADD 100 ML ONE (07:38)
[2023-02-16] MEDS: Fentanyl CADD 100 ML IV SCH (07:47)
[2023-02-16 08:06] LABS: Actual Bicarbonate (HCO3a) 29.5 mEq/L (22-28); Base Excess (BEa) 3.3 mEq/L (-2.0 to +3.0); CO2 Tension 54.4 mmHg (35.0-45.0); Calcium, Ionized (arterial) 1.19 mmol/L (1.12-1.30); Carboxyhemoglobin (COHb) 0.9 gm% (0.0-3.0); Hemoglobin (Hb) 8.3 g/dL (14.0-18.0); O2 Tension (PaO2), arterial 115.2 mmHg (80.0-100.0); Potassium - ABG Lab 3.67 mmol/L (3.70-5.30); pH, Arterial 7.35 (7.35-7.45)
[2023-02-16 08:07] LABS: Puncture Site RRA
[2023-02-16] MEDS: Lansoprazole 15 MG/5 ML (BATCHED)UDCUP PER TUBE SCH (08:22)
[2023-02-16] MEDS: Polyethylene Glycol 3350 17 GM Packet PO SCH (08:22)
[2023-02-16] MEDS: Thiamine 100 MG TAB PER TUBE SCH (08:23)
[2023-02-16] MEDS: Saccharomyces boulardii 250 MG CAP PER TUBE SCH ×2 (08:23→20:07)
[2023-02-16] MEDS: Folic Acid 1 MG TAB PER TUBE SCH (08:23)
[2023-02-16] MEDS: carBAMazepine 200 MG TAB PO SCH ×3 (08:23→20:07)
[2023-02-16] MEDS: clonazePAM 1 MG TAB PO SCH ×2 (08:24→20:07)
[2023-02-16] MEDS: Ascorbic Acid 500 mg Chewable Tablet PO SCH ×2 (08:24→20:07)
[2023-02-16] MEDS: Senokot S 8.6-50 MG TAB PO SCH ×2 (08:24→20:03)
[2023-02-16] MEDS ORDERED: Furosemide 20 MG/2 ML VIAL SLOW IVP SCH (08:46)
[2023-02-16] MEDS: Morphine 4 MG/ML VIAL ONE ×2 (08:56→09:01)
[2023-02-16] MEDS: Meropenem 2 GM, Admixture Fee 1 EACH in Sodium Chloride 0.9% 100 ML IVPB SCH ×2 (08:57→17:33)
[2023-02-16] MEDS ORDERED: Morphine 4 MG/ML VIAL SLOW IVP SCH (09:00)
[2023-02-16 11:20] LABS: Base Excess (BEa) 11.3 mEq/L (-2.0 to +3.0); Calcium, Ionized (arterial) 1.18 mmol/L (1.12-1.30); Carboxyhemoglobin (COHb) 0.5 gm% (0.0-3.0); Hemoglobin (Hb) 8.3 g/dL (14.0-18.0); O2 Tension (PaO2), arterial 80.3 mmHg (80.0-100.0); Potassium - ABG Lab 3.48 mmol/L (3.70-5.30); pH, Arterial 7.38 (7.35-7.45)
[2023-02-16 11:23] LABS: CO2 Tension 65.8 mmHg (35.0-45.0)
[2023-02-16 11:24] LABS: Puncture Site RRA
[2023-02-16 11:55] LABS: O2 Tension (PaO2), arterial 56.7 mmHg (80.0-100.0)
[2023-02-16 11:56] LABS: CO2 Tension 65.3 mmHg (35.0-45.0)
[2023-02-16] MEDS: Midazolam HCl 100 MG in Admixture Fee 1 EACH IVPB PRN (13:09)
[2023-02-16] MEDS: DAPTOmycin 500 MG in Sodium Chloride 0.9% 100 ML IVPB SCH (13:23)
[2023-02-16] MEDS: [UNRECOGNIZED DRUG - OTHER] IV SCH (14:53)
[2023-02-16] MEDS: POTASSIUM CHLORIDE IV SCH (14:53)
[2023-02-16] MEDS: POTASSIUM PHOSPHATE IV SCH (14:53)
[2023-02-16] MEDS: CALCIUM GLUCONATE IV SCH (14:53)
[2023-02-16] MEDS: Fluconazole In NaCl,Iso-Osm 200 MG in Premix Bag 1 BAG IVPB SCH (18:18)
[2023-02-16] MEDS: Melatonin 3 MG TAB PO PRN (20:06)
[2023-02-16] MEDS ORDERED: acetaZOLAMIDE Sodium 500 mg Vial IVP SCH (21:00)
[2023-02-16] MEDS ORDERED: AcetaZOLAMIDE 250 MG TAB PO SCH (21:00)
[2023-02-17] MEDS: Meropenem 2 GM, Admixture Fee 1 EACH in Sodium Chloride 0.9% 100 ML IVPB SCH ×3 (01:06→18:02)
[2023-02-17] MEDS: Albuterol 200 PUFF (6.7GM INHALER) INH SCH ×6 (02:43→22:00)
[2023-02-17] MEDS: Ipratropium 200 Puff Oral Inhaler INH SCH ×6 (02:43→22:01)
[2023-02-17] MEDS: Acetaminophen 325 MG TAB PO SCH ×4 (04:18→22:10)
[2023-02-17] MEDS: Metoclopramide HCl 10 MG/2 ML VIAL IVP SCH ×3 (05:02→15:55)
[2023-02-17] MEDS: Metoprolol Tartrate 50 MG TAB PO SCH ×3 (05:02→22:12)
[2023-02-17] MEDS: cloNIDine 0.2 MG TAB PO SCH ×4 (05:02→23:14)
[2023-02-17 05:20] LABS: Hemoglobin 7.6 g/dL (14.0-18.0); Mean Corpuscular HGB CONC 29.9 g/dL (32.0-36.0); Mean Corpuscular Hemoglobin 30.8 pg (27.0-31.0); Platelet Count 298 10x3/uL (130-400); RBC Distribution Width 16.7 % (11.5-14.5); Red Blood Cell (RBC) Count 2.46 mill/uL (4.70-6.10); White Blood Cell (WBC) Count 15.3 10x3/uL (4.8-10.8)
[2023-02-17 05:21] LABS: Anion Gap 10 mmol/L (10-20); BUN (Urea Nitrogen) 46 mg/dL (8.9-20.6); Calc. Creatinine Clearance 88 mL/min (70-130); Calcium 8.4 mg/dL (7.8-10.44); Carbon Dioxide 32 mmol/L (22-29); Chloride 111 mmol/L (98-107); Estimated GFR 71; Glucose 155 mg/dL (70-105); Potassium 3.7 mmol/L (3.5-5.1); Sodium 149 mmol/L (136-145)
[2023-02-17 06:18] LABS: #Eosinphils 0.3 thou/uL (0.0-0.7); #Lymphocytes 0.9 thou/uL (1.20-3.40); #Monocytes 1.1 thou/uL (0.11-0.59); #Neutrophils 12.9 thou/uL (1.40-6.50); %Basophils 0.1 % (0.0-1.0); %Lymphocytes 6.1 % (21.0-51.0); %Monocytes 7.3 % (0.0-10.0); %Neutrophils 84.6 % (42.0-75.0); Basophilic Stippling SLIGHT = 1-2 cells (100X) (None Seen); MDiff Complete? YES
[2023-02-17 06:42] LABS: Phosphorus 4.3 mg/dL (2.3-4.7)
[2023-02-17 07:29] LABS: Base Excess (BEa) 5.8 mEq/L (-2.0 to +3.0); Calcium, Ionized (arterial) 1.17 mmol/L (1.12-1.30); Carboxyhemoglobin (COHb) 1.3 gm% (0.0-3.0); Hemoglobin (Hb) 7.2 g/dL (14.0-18.0); O2 Tension (PaO2), arterial 102.3 mmHg (80.0-100.0); Potassium - ABG Lab 3.76 mmol/L (3.70-5.30)
[2023-02-17 07:38] LABS: Puncture Site LRA
[2023-02-17] MEDS ORDERED: LYTES IN TPN IVPB PRN (08:22)
[2023-02-17] MEDS ORDERED: Morphine 4 MG/ML VIAL SLOW IVP SCH (09:15)
[2023-02-17] MEDS ORDERED: Morphine 4 MG/ML VIAL SLOW IVP PRN (09:15)
[2023-02-17] MEDS: Senokot S 8.6-50 MG TAB PO SCH ×2 (09:30→22:09)
[2023-02-17] MEDS: Lansoprazole 15 MG/5 ML (BATCHED)UDCUP PER TUBE SCH (09:30)
[2023-02-17] MEDS: Folic Acid 1 MG TAB PER TUBE SCH (09:30)
[2023-02-17] MEDS: Thiamine 100 MG TAB PER TUBE SCH (09:30)
[2023-02-17] MEDS: carBAMazepine 200 MG TAB PO SCH ×3 (09:30→22:11)
[2023-02-17] MEDS: Saccharomyces boulardii 250 MG CAP PER TUBE SCH ×2 (09:30→22:12)
[2023-02-17] MEDS: Ascorbic Acid 500 mg Chewable Tablet PO SCH ×2 (09:30→22:11)
[2023-02-17] MEDS: acetaZOLAMIDE Sodium 500 mg Vial IVP SCH ×2 (09:30→22:11)
[2023-02-17] MEDS: clonazePAM 1 MG TAB PO SCH ×3 (09:30→22:10)
[2023-02-17] MEDS: Polyethylene Glycol 3350 17 GM Packet PO SCH (09:31)
[2023-02-17 10:41] LABS: Actual Bicarbonate (HCO3a) 31.9 mEq/L (22-28); Base Excess (BEa) 2.2 mEq/L (-2.0 to +3.0); Calcium, Ionized (arterial) 1.22 mmol/L (1.12-1.30); O2 Tension (PaO2), arterial 100.5 mmHg (80.0-100.0); Potassium - ABG Lab 3.94 mmol/L (3.70-5.30)
[2023-02-17 10:56] LABS: Puncture Site LRA
[2023-02-17 10:57] LABS: ALV-art Gradient 145.375 mmHg (0-20)
[2023-02-17] MEDS ORDERED: Propofol 1,000 MG/100 ML VIAL IV ONE (12:37)
[2023-02-17] MEDS: Vecuronium Bromide 50 MG in Sodium Chloride 0.9% 250 ML 250 ML IV SCH ×2 (12:41→22:13)
[2023-02-17] MEDS: DAPTOmycin 500 MG in Sodium Chloride 0.9% 100 ML IVPB SCH (13:29)
[2023-02-17] MEDS: POTASSIUM CHLORIDE IV SCH (14:19)
[2023-02-17] MEDS: CALCIUM GLUCONATE IV SCH (14:19)
[2023-02-17] MEDS: POTASSIUM PHOSPHATE IV SCH (14:19)
[2023-02-17] MEDS: [UNRECOGNIZED DRUG - OTHER] IV SCH (14:19)
[2023-02-17 15:06] LABS: Actual Bicarbonate (HCO3a) 30.4 mEq/L (22-28); Base Excess (BEa) 2.7 mEq/L (-2.0 to +3.0); Calcium, Ionized (arterial) 1.19 mmol/L (1.12-1.30); Carboxyhemoglobin (COHb) 1.2 gm% (0.0-3.0); Hemoglobin (Hb) 8.3 g/dL (14.0-18.0); O2 Tension (PaO2), arterial 105.5 mmHg (80.0-100.0); Potassium - ABG Lab 3.81 mmol/L (3.70-5.30); pH, Arterial 7.27 (7.35-7.45)
[2023-02-17 15:07] LABS: Puncture Site LRA
[2023-02-17] MEDS: Fentanyl CADD 100 ML IV SCH (16:42)
[2023-02-17] MEDS: methylPREDNISolone Sod Succ/PF 125 MG/2 ML VIAL IVP SCH ×2 (17:39→23:08)
[2023-02-17] MEDS: Fluconazole In NaCl,Iso-Osm 200 MG in Premix Bag 1 BAG IVPB SCH (17:39)
[2023-02-17] MEDS: Propofol 1,000 MG/100 ML VIAL IV PRN (22:14)
[2023-02-17] MEDS: hydrALAZINE 20 MG/ML VIAL SLOW IVP PRN (23:15)
[2023-02-18] MEDS: Meropenem 2 GM, Admixture Fee 1 EACH in Sodium Chloride 0.9% 100 ML IVPB SCH ×3 (01:45→18:19)
[2023-02-18] MEDS: Ipratropium 200 Puff Oral Inhaler INH SCH ×6 (02:04→21:55)
[2023-02-18] MEDS: Albuterol 200 PUFF (6.7GM INHALER) INH SCH ×6 (02:04→21:55)
[2023-02-18 04:35] LABS: #Eosinphils 0.1 thou/uL (0.0-0.7); #Lymphocytes 0.3 thou/uL (1.20-3.40); #Monocytes 0.4 thou/uL (0.11-0.59); #Neutrophils 17.6 thou/uL (1.40-6.50); %Eosinophils 0.6 % (0.0-10.0); %Lymphocytes 1.8 % (21.0-51.0); %Neutrophils 95.6 % (42.0-75.0); Hemoglobin 7.9 g/dL (14.0-18.0); Mean Corpuscular HGB CONC 29.8 g/dL (32.0-36.0); Mean Corpuscular Hemoglobin 30.8 pg (27.0-31.0); Mean Platelet Volume 9.5 fL (7.4-10.4); Platelet Count 252 10x3/uL (130-400); RBC Distribution Width 16.2 % (11.5-14.5); Red Blood Cell (RBC) Count 2.58 mill/uL (4.70-6.10); White Blood Cell (WBC) Count 18.4 10x3/uL (4.8-10.8)
[2023-02-18 04:55] LABS: Anion Gap 10 mmol/L (10-20); BUN (Urea Nitrogen) 46 mg/dL (8.9-20.6); Calc. Creatinine Clearance 108 mL/min (70-130); Calcium 8.6 mg/dL (7.8-10.44); Carbon Dioxide 31 mmol/L (22-29); Chloride 108 mmol/L (98-107); Estimated GFR 92; Glucose 205 mg/dL (70-105); Potassium 4.4 mmol/L (3.5-5.1); Sodium 145 mmol/L (136-145)
[2023-02-18] MEDS: methylPREDNISolone Sod Succ/PF 125 MG/2 ML VIAL IVP SCH ×3 (06:14→18:19)
[2023-02-18] MEDS: Acetaminophen 325 MG TAB PO SCH ×4 (06:14→21:46)
[2023-02-18] MEDS: hydrALAZINE 20 MG/ML VIAL SLOW IVP PRN (06:53)
[2023-02-18] MEDS: cloNIDine 0.2 MG TAB PO SCH ×3 (07:08→18:20)
[2023-02-18] MEDS: Metoprolol Tartrate 50 MG TAB PO SCH ×3 (07:08→21:47)
[2023-02-18] MEDS: Vecuronium Bromide 50 MG in Sodium Chloride 0.9% 250 ML 250 ML IV SCH ×2 (07:25→16:38)
[2023-02-18 07:50] LABS: Actual Bicarbonate (HCO3a) 31.7 mEq/L (22-28); Base Excess (BEa) 4.5 mEq/L (-2.0 to +3.0); Calcium, Ionized (arterial) 1.21 mmol/L (1.12-1.30); Carboxyhemoglobin (COHb) 0.9 gm% (0.0-3.0); Hemoglobin (Hb) 8.6 g/dL (14.0-18.0); Potassium - ABG Lab 4.51 mmol/L (3.70-5.30); pH, Arterial 7.31 (7.35-7.45)
[2023-02-18 07:58] LABS: Phosphorus 4.6 mg/dL (2.3-4.7)
[2023-02-18 08:09] LABS: Puncture Site LRA
[2023-02-18] MEDS ORDERED: Morphine 4 MG/ML VIAL SLOW IVP SCH (08:53)
[2023-02-18] MEDS: clonazePAM 1 MG TAB PO SCH ×3 (08:56→21:46)
[2023-02-18] MEDS: acetaZOLAMIDE Sodium 500 mg Vial IVP SCH ×2 (08:56→21:47)
[2023-02-18] MEDS: Ascorbic Acid 500 mg Chewable Tablet PO SCH ×2 (08:56→21:46)
[2023-02-18] MEDS: Folic Acid 1 MG TAB PER TUBE SCH (08:56)
[2023-02-18] MEDS: carBAMazepine 200 MG TAB PO SCH ×3 (08:56→21:46)
[2023-02-18] MEDS: Polyethylene Glycol 3350 17 GM Packet PO SCH (08:56)
[2023-02-18] MEDS: Senokot S 8.6-50 MG TAB PO SCH ×2 (08:56→21:46)
[2023-02-18] MEDS: Saccharomyces boulardii 250 MG CAP PER TUBE SCH ×2 (08:56→21:46)
[2023-02-18] MEDS: Lansoprazole 15 MG/5 ML (BATCHED)UDCUP PER TUBE SCH ×2 (08:56→09:12)
[2023-02-18] MEDS: Thiamine 100 MG TAB PER TUBE SCH (08:56)
[2023-02-18] MEDS ORDERED: Pantoprazole 40 MG VIAL IVP SCH (09:15)
[2023-02-18 13:26] LABS: CO2 Tension 68.8 mmHg (35.0-45.0)
[2023-02-18 13:27] LABS: CO2 Tension 88.5 mmHg (35.0-45.0)
[2023-02-18 13:28] LABS: pH, Arterial 7.18 (7.35-7.45)
[2023-02-18 13:29] LABS: CO2 Tension 67.8 mmHg (35.0-45.0)
[2023-02-18] MEDS: DAPTOmycin 500 MG in Sodium Chloride 0.9% 100 ML IVPB SCH (13:34)
[2023-02-18] MEDS: Propofol 1,000 MG/100 ML VIAL IV PRN (13:34)
[2023-02-18] MEDS ORDERED: Dextrose 5% in Water 1,000 ML IV PRN (14:03)
[2023-02-18] MEDS ORDERED: Dextrose 50% Abboject 50 ML SYRINGE SLOW IVP PRN (14:03)
[2023-02-18] MEDS: POTASSIUM PHOSPHATE IV SCH (14:10)
[2023-02-18] MEDS: [UNRECOGNIZED DRUG - OTHER] IV SCH (14:10)
[2023-02-18] MEDS: CALCIUM GLUCONATE IV SCH (14:10)
[2023-02-18] MEDS: POTASSIUM CHLORIDE IV SCH (14:10)
[2023-02-18] MEDS: Fluconazole In NaCl,Iso-Osm 200 MG in Premix Bag 1 BAG IVPB SCH (18:19)
[2023-02-18] MEDS: Fentanyl CADD 100 ML IV SCH (20:14)
[2023-02-18] MEDS: HumaLOG 300 UNITS/3 ML VIAL SC PRN (21:45)
[2023-02-18] MEDS: Pantoprazole 40 MG VIAL IVP SCH (21:47)
[2023-02-19] MEDS: HumaLOG 300 UNITS/3 ML VIAL SC PRN ×5 (00:27→19:36)
[2023-02-19] MEDS: cloNIDine 0.2 MG TAB PO SCH ×4 (00:27→18:21)
[2023-02-19] MEDS: methylPREDNISolone Sod Succ/PF 125 MG/2 ML VIAL IVP SCH ×3 (00:27→13:30)
[2023-02-19] MEDS: Propofol 1,000 MG/100 ML VIAL IV PRN ×4 (01:19→20:20)
[2023-02-19] MEDS: Meropenem 2 GM, Admixture Fee 1 EACH in Sodium Chloride 0.9% 100 ML IVPB SCH ×3 (01:31→18:21)
[2023-02-19] MEDS: Vecuronium Bromide 50 MG in Sodium Chloride 0.9% 250 ML 250 ML IV SCH ×2 (01:32→13:00)
[2023-02-19] MEDS: Albuterol 200 PUFF (6.7GM INHALER) INH SCH ×6 (02:11→23:18)
[2023-02-19] MEDS: Ipratropium 200 Puff Oral Inhaler INH SCH ×6 (02:11→23:18)
[2023-02-19 03:50] LABS: #Lymphocytes 0.6 thou/uL (1.20-3.40); #Monocytes 0.7 thou/uL (0.11-0.59); #Neutrophils 11.6 thou/uL (1.40-6.50); %Basophils 0.1 % (0.0-1.0); %Eosinophils 0.3 % (0.0-10.0); %Lymphocytes 4.9 % (21.0-51.0); %Monocytes 5.3 % (0.0-10.0); %Neutrophils 89.5 % (42.0-75.0); Hemoglobin 7.4 g/dL (14.0-18.0); Mean Corpuscular HGB CONC 31.1 g/dL (32.0-36.0); Mean Corpuscular Hemoglobin 31.1 pg (27.0-31.0); Mean Platelet Volume 9.2 fL (7.4-10.4); Platelet Count 248 10x3/uL (130-400); Red Blood Cell (RBC) Count 2.36 mill/uL (4.70-6.10)
[2023-02-19] MEDS: Acetaminophen 325 MG TAB PO SCH ×4 (03:58→21:44)
[2023-02-19 04:28] LABS: Anion Gap 10 mmol/L (10-20); BUN (Urea Nitrogen) 50 mg/dL (8.9-20.6); Calc. Creatinine Clearance 106 mL/min (70-130); Calcium 8.5 mg/dL (7.8-10.44); Carbon Dioxide 29 mmol/L (22-29); Chloride 111 mmol/L (98-107); Estimated GFR 88; Glucose 170 mg/dL (70-105); Potassium 4.3 mmol/L (3.5-5.1); Sodium 146 mmol/L (136-145)
[2023-02-19] MEDS: Metoprolol Tartrate 50 MG TAB PO SCH ×3 (05:23→22:39)
[2023-02-19] MEDS ORDERED: Furosemide 40 MG/4 ML VIAL SLOW IVP SCH ×2 (08:15→17:15)
[2023-02-19 08:21] LABS: Actual Bicarbonate (HCO3a) 29.1 mEq/L (22-28); Base Excess (BEa) 2.9 mEq/L (-2.0 to +3.0); CO2 Tension 54.4 mmHg (35.0-45.0); Calcium, Ionized (arterial) 1.24 mmol/L (1.12-1.30); Carboxyhemoglobin (COHb) 0.9 gm% (0.0-3.0); Hemoglobin (Hb) 8.3 g/dL (14.0-18.0); O2 Tension (PaO2), arterial 68.8 mmHg (80.0-100.0); Potassium - ABG Lab 4.18 mmol/L (3.70-5.30); Puncture Site RRA; pH, Arterial 7.35 (7.35-7.45)
[2023-02-19] MEDS: acetaZOLAMIDE Sodium 500 mg Vial IVP SCH ×2 (08:51→21:45)
[2023-02-19] MEDS: carBAMazepine 200 MG TAB PO SCH ×3 (08:52→21:44)
[2023-02-19] MEDS: Thiamine 100 MG TAB PER TUBE SCH (08:52)
[2023-02-19] MEDS: Polyethylene Glycol 3350 17 GM Packet PO SCH (08:52)
[2023-02-19] MEDS: Ascorbic Acid 500 mg Chewable Tablet PO SCH ×2 (08:52→21:44)
[2023-02-19] MEDS: Saccharomyces boulardii 250 MG CAP PER TUBE SCH ×2 (08:52→21:44)
[2023-02-19] MEDS: Folic Acid 1 MG TAB PER TUBE SCH (08:52)
[2023-02-19] MEDS: Senokot S 8.6-50 MG TAB PO SCH ×2 (08:52→21:44)
[2023-02-19] MEDS: clonazePAM 1 MG TAB PO SCH ×3 (08:52→21:44)
[2023-02-19] MEDS: Pantoprazole 40 MG VIAL IVP SCH ×2 (08:52→21:45)
[2023-02-19 08:58] LABS: CO2 Tension 64.4 mmHg (35.0-45.0)
[2023-02-19] MEDS ORDERED: Iron, Sodium Ferric Gluconate 125 MG in Sodium Chloride 0.9% 100 ML IVPB SCH (09:45)
[2023-02-19] MEDS ORDERED: methylPREDNISolone Sod Succ 40 MG VIAL IVP SCH (13:00)
[2023-02-19] MEDS: DAPTOmycin 500 MG in Sodium Chloride 0.9% 100 ML IVPB SCH (13:42)
[2023-02-19] MEDS: POTASSIUM PHOSPHATE IV SCH (14:44)
[2023-02-19] MEDS: CALCIUM GLUCONATE IV SCH (14:44)
[2023-02-19] MEDS: [UNRECOGNIZED DRUG - OTHER] IV SCH (14:44)
[2023-02-19] MEDS: POTASSIUM CHLORIDE IV SCH (14:44)
[2023-02-19] MEDS ORDERED: Fentanyl CADD 100 ML ONE (16:27)
[2023-02-19] MEDS: Fentanyl CADD 100 ML IV SCH (16:34)
[2023-02-19] MEDS: Fluconazole In NaCl,Iso-Osm 200 MG in Premix Bag 1 BAG IVPB SCH (18:21)
[2023-02-19] MEDS: methylPREDNISolone Sod Succ 40 MG VIAL IVP SCH (19:07)
[2023-02-20] MEDS: methylPREDNISolone Sod Succ 40 MG VIAL IVP SCH ×4 (00:06→18:11)
[2023-02-20] MEDS: Propofol 1,000 MG/100 ML VIAL IV PRN ×6 (00:06→23:03)
[2023-02-20] MEDS: cloNIDine 0.2 MG TAB PO SCH ×4 (00:07→18:10)
[2023-02-20] MEDS: HumaLOG 300 UNITS/3 ML VIAL SC PRN ×6 (00:07→19:59)
[2023-02-20] MEDS: Meropenem 2 GM, Admixture Fee 1 EACH in Sodium Chloride 0.9% 100 ML IVPB SCH (01:13)
[2023-02-20] MEDS: Albuterol 200 PUFF (6.7GM INHALER) INH SCH ×6 (02:51→22:42)
[2023-02-20] MEDS: Ipratropium 200 Puff Oral Inhaler INH SCH ×6 (02:51→22:42)
[2023-02-20 03:55] LABS: #Eosinphils 0.1 thou/uL (0.0-0.7); #Lymphocytes 0.6 thou/uL (1.20-3.40); #Monocytes 0.7 thou/uL (0.11-0.59); #Neutrophils 10.5 thou/uL (1.40-6.50); %Basophils 0.1 % (0.0-1.0); %Eosinophils 0.8 % (0.0-10.0); %Lymphocytes 5.1 % (21.0-51.0); %Neutrophils 87.9 % (42.0-75.0); Hemoglobin 7.4 g/dL (14.0-18.0); Mean Corpuscular Hemoglobin 31.3 pg (27.0-31.0); Mean Platelet Volume 9.4 fL (7.4-10.4); Platelet Count 258 10x3/uL (130-400); RBC Distribution Width 15.6 % (11.5-14.5); Red Blood Cell (RBC) Count 2.37 mill/uL (4.70-6.10); White Blood Cell (WBC) Count 11.9 10x3/uL (4.8-10.8)
[2023-02-20 04:20] LABS: Phosphorus 4.3 mg/dL (2.3-4.7)
[2023-02-20 04:21] LABS: Anion Gap 13 mmol/L (10-20); BUN (Urea Nitrogen) 52 mg/dL (8.9-20.6); Calc. Creatinine Clearance 103 mL/min (70-130); Calcium 8.5 mg/dL (7.8-10.44); Carbon Dioxide 28 mmol/L (22-29); Chloride 107 mmol/L (98-107); Estimated GFR 87; Glucose 221 mg/dL (70-105); Magnesium 1.9 mg/dL (1.6-2.6); Sodium 144 mmol/L (136-145)
[2023-02-20] MEDS: Acetaminophen 325 MG TAB PO SCH ×4 (04:25→20:34)
[2023-02-20] MEDS: Metoprolol Tartrate 50 MG TAB PO SCH ×3 (06:00→20:34)
[2023-02-20] MEDS ORDERED: Furosemide 40 MG/4 ML VIAL SLOW IVP SCH ×2 (07:15→19:00)
[2023-02-20 07:35] LABS: Actual Bicarbonate (HCO3a) 28.3 mEq/L (22-28); Base Excess (BEa) 2.2 mEq/L (-2.0 to +3.0); CO2 Tension 52.4 mmHg (35.0-45.0); Calcium, Ionized (arterial) 1.22 mmol/L (1.12-1.30); Carboxyhemoglobin (COHb) 1.2 gm% (0.0-3.0); O2 Tension (PaO2), arterial 80.2 mmHg (80.0-100.0); Potassium - ABG Lab 3.96 mmol/L (3.70-5.30); pH, Arterial 7.35 (7.35-7.45)
[2023-02-20 07:40] LABS: Puncture Site LRA
[2023-02-20] MEDS: Polyethylene Glycol 3350 17 GM Packet PO SCH (08:35)
[2023-02-20] MEDS: acetaZOLAMIDE Sodium 500 mg Vial IVP SCH (08:35)
[2023-02-20] MEDS: Senokot S 8.6-50 MG TAB PO SCH ×2 (08:36→20:40)
[2023-02-20] MEDS: Folic Acid 1 MG TAB PER TUBE SCH (08:36)
[2023-02-20] MEDS: Ascorbic Acid 500 mg Chewable Tablet PO SCH ×2 (08:36→20:34)
[2023-02-20] MEDS: Saccharomyces boulardii 250 MG CAP PER TUBE SCH ×2 (08:36→20:34)
[2023-02-20] MEDS: Thiamine 100 MG TAB PER TUBE SCH (08:36)
[2023-02-20] MEDS: carBAMazepine 200 MG TAB PO SCH ×3 (08:36→20:35)
[2023-02-20] MEDS: clonazePAM 1 MG TAB PO SCH ×3 (08:36→20:34)
[2023-02-20] MEDS: Pantoprazole 40 MG VIAL IVP SCH (08:46)
[2023-02-20] MEDS ORDERED: Fentanyl CADD 100 ML ONE (12:12)
[2023-02-20] MEDS: Fentanyl CADD 100 ML IV SCH (12:14)
[2023-02-20] MEDS: Vecuronium Bromide 50 MG in Sodium Chloride 0.9% 250 ML 250 ML IV SCH (12:14)
[2023-02-20 12:31] LABS: Actual Bicarbonate (HCO3a) 29.7 mEq/L (22-28); Base Excess (BEa) 2.2 mEq/L (-2.0 to +3.0); Calcium, Ionized (arterial) 1.23 mmol/L (1.12-1.30); Hemoglobin (Hb) 8.3 g/dL (14.0-18.0); O2 Tension (PaO2), arterial 93.7 mmHg (80.0-100.0); Potassium - ABG Lab 3.93 mmol/L (3.70-5.30); pH, Arterial 7.28 (7.35-7.45)
[2023-02-20 12:33] LABS: ALV-art Gradient 109.875 mmHg (0-20); CO2 Tension 65.3 mmHg (35.0-45.0); Puncture Site RRA
[2023-02-20] MEDS: CALCIUM GLUCONATE IV SCH (15:09)
[2023-02-20] MEDS: POTASSIUM CHLORIDE IV SCH (15:09)
[2023-02-20] MEDS: POTASSIUM PHOSPHATE IV SCH (15:09)
[2023-02-20] MEDS: [UNRECOGNIZED DRUG - OTHER] IV SCH (15:09)
[2023-02-20] MEDS ORDERED: Magnesium 2 GM/50 ML(in water) 2 GM in Premix Bag 1 BAG IVPB SCH (16:00)
[2023-02-20] MEDS ORDERED: Potassium Chloride 20 MEQ TAB PO SCH (16:00)
[2023-02-20] MEDS ORDERED: Potassium Chloride 20 MEQ in Premix Bag 1 BAG IVPB SCH (16:00)
[2023-02-20] MEDS: Fluconazole In NaCl,Iso-Osm 200 MG in Premix Bag 1 BAG IVPB SCH (18:11)
[2023-02-21] MEDS: methylPREDNISolone Sod Succ 40 MG VIAL IVP SCH ×4 (00:10→18:13)
[2023-02-21] MEDS: HumaLOG 300 UNITS/3 ML VIAL SC PRN ×4 (00:10→18:22)
[2023-02-21] MEDS: cloNIDine 0.2 MG TAB PO SCH ×4 (00:14→18:14)
[2023-02-21] MEDS: Albuterol 200 PUFF (6.7GM INHALER) INH SCH ×6 (02:35→22:00)
[2023-02-21] MEDS: Ipratropium 200 Puff Oral Inhaler INH SCH ×6 (02:35→22:00)
[2023-02-21] MEDS: Acetaminophen 325 MG TAB PO SCH ×4 (02:58→20:16)
[2023-02-21] MEDS: Propofol 1,000 MG/100 ML VIAL IV PRN ×3 (02:59→19:13)
[2023-02-21 03:51] LABS: #Eosinphils 0.1 thou/uL (0.0-0.7); #Lymphocytes 0.5 thou/uL (1.20-3.40); #Monocytes 0.8 thou/uL (0.11-0.59); #Neutrophils 8.8 thou/uL (1.40-6.50); %Eosinophils 0.6 % (0.0-10.0); %Lymphocytes 5.1 % (21.0-51.0); %Monocytes 7.5 % (0.0-10.0); %Neutrophils 86.8 % (42.0-75.0); Hemoglobin 7.3 g/dL (14.0-18.0); Mean Corpuscular HGB CONC 32.1 g/dL (32.0-36.0); Mean Corpuscular Hemoglobin 32.1 pg (27.0-31.0); Mean Platelet Volume 9.1 fL (7.4-10.4); Platelet Count 276 10x3/uL (130-400); RBC Distribution Width 15.2 % (11.5-14.5); Red Blood Cell (RBC) Count 2.27 mill/uL (4.70-6.10); White Blood Cell (WBC) Count 10.1 10x3/uL (4.8-10.8)
[2023-02-21 04:04] LABS: Anion Gap 11 mmol/L (10-20); BUN (Urea Nitrogen) 55 mg/dL (8.9-20.6); Calc. Creatinine Clearance 107 mL/min (70-130); Calcium 8.2 mg/dL (7.8-10.44); Carbon Dioxide 27 mmol/L (22-29); Chloride 108 mmol/L (98-107); Estimated GFR 90; Glucose 164 mg/dL (70-105); Magnesium 2.1 mg/dL (1.6-2.6); Phosphorus 4.7 mg/dL (2.3-4.7); Potassium 4.5 mmol/L (3.5-5.1); Sodium 141 mmol/L (136-145)
[2023-02-21] MEDS: Vecuronium Bromide 50 MG in Sodium Chloride 0.9% 250 ML 250 ML IV SCH ×2 (04:32→15:43)
[2023-02-21] MEDS: Metoprolol Tartrate 50 MG TAB PO SCH ×3 (05:24→20:16)
[2023-02-21] MEDS ORDERED: Furosemide 40 MG/4 ML VIAL SLOW IVP SCH (07:45)
[2023-02-21 08:23] LABS: Actual Bicarbonate (HCO3a) 29.2 mEq/L (22-28); Base Excess (BEa) 1.2 mEq/L (-2.0 to +3.0); Calcium, Ionized (arterial) 1.18 mmol/L (1.12-1.30); Hemoglobin (Hb) 9.5 g/dL (14.0-18.0); O2 Tension (PaO2), arterial 90.5 mmHg (80.0-100.0); Potassium - ABG Lab 4.59 mmol/L (3.70-5.30); pH, Arterial 7.26 (7.35-7.45)
[2023-02-21 08:25] LABS: Puncture Site LRA
[2023-02-21] MEDS: Fentanyl CADD 100 ML IV SCH (08:27)
[2023-02-21] MEDS: carBAMazepine 200 MG TAB PO SCH ×3 (08:50→20:15)
[2023-02-21] MEDS: Ascorbic Acid 500 mg Chewable Tablet PO SCH ×2 (08:50→20:15)
[2023-02-21] MEDS: Saccharomyces boulardii 250 MG CAP PER TUBE SCH ×2 (08:50→20:15)
[2023-02-21] MEDS: Polyethylene Glycol 3350 17 GM Packet PO SCH (08:50)
[2023-02-21] MEDS: Senokot S 8.6-50 MG TAB PO SCH ×2 (08:50→20:15)
[2023-02-21] MEDS: Folic Acid 1 MG TAB PER TUBE SCH (08:51)
[2023-02-21] MEDS: Thiamine 100 MG TAB PER TUBE SCH (08:51)
[2023-02-21] MEDS: clonazePAM 1 MG TAB PO SCH ×3 (08:54→20:16)
[2023-02-21] MEDS ORDERED: Metolazone 2.5 MG TAB PO SCH (10:15)
[2023-02-21] MEDS: Pantoprazole 40 MG VIAL IVP SCH (10:33)
[2023-02-21] MEDS: Metolazone 2.5 MG TAB PO SCH (10:54)
[2023-02-21] MEDS: [UNRECOGNIZED DRUG - OTHER] IV SCH (15:33)
[2023-02-21] MEDS: POTASSIUM PHOSPHATE IV SCH (15:33)
[2023-02-21] MEDS: CALCIUM GLUCONATE IV SCH (15:33)
[2023-02-21] MEDS: POTASSIUM CHLORIDE IV SCH (15:33)
[2023-02-21] MEDS: Fluconazole In NaCl,Iso-Osm 200 MG in Premix Bag 1 BAG IVPB SCH (18:23)
[2023-02-22] MEDS: HumaLOG 300 UNITS/3 ML VIAL SC PRN ×7 (00:09→23:50)
[2023-02-22] MEDS: methylPREDNISolone Sod Succ 40 MG VIAL IVP SCH ×5 (00:09→23:50)
[2023-02-22] MEDS: cloNIDine 0.2 MG TAB PO SCH ×5 (00:09→23:50)
[2023-02-22] MEDS: Propofol 1,000 MG/100 ML VIAL IV PRN ×5 (00:30→21:30)
[2023-02-22] MEDS: Ipratropium 200 Puff Oral Inhaler INH SCH ×6 (02:33→21:31)
[2023-02-22] MEDS: Albuterol 200 PUFF (6.7GM INHALER) INH SCH ×6 (02:33→21:30)
[2023-02-22] MEDS: Acetaminophen 325 MG TAB PO SCH ×4 (03:01→20:07)
[2023-02-22] MEDS: Fentanyl CADD 100 ML IV SCH (04:31)
[2023-02-22] MEDS: Metoprolol Tartrate 50 MG TAB PO SCH ×3 (05:11→23:29)
[2023-02-22 05:18] LABS: #Eosinphils 0.4 thou/uL (0.0-0.7); #Lymphocytes 0.7 thou/uL (1.20-3.40); #Monocytes 1.5 thou/uL (0.11-0.59); #Neutrophils 12.6 thou/uL (1.40-6.50); %Eosinophils 2.5 % (0.0-10.0); %Lymphocytes 4.4 % (21.0-51.0); %Monocytes 10.1 % (0.0-10.0); %Neutrophils 82.9 % (42.0-75.0); Hemoglobin 8.3 g/dL (14.0-18.0); Mean Corpuscular HGB CONC 33.2 g/dL (32.0-36.0); Mean Corpuscular Hemoglobin 33.2 pg (27.0-31.0); Mean Corpuscular Volume 99.9 fl (78.0-98.0); Mean Platelet Volume 9.5 fL (7.4-10.4); Platelet Count 254 10x3/uL (130-400); RBC Distribution Width 15.3 % (11.5-14.5); Red Blood Cell (RBC) Count 2.51 mill/uL (4.70-6.10); White Blood Cell (WBC) Count 15.2 10x3/uL (4.8-10.8)
[2023-02-22 05:30] LABS: Anion Gap 10 mmol/L (10-20); BUN (Urea Nitrogen) 56 mg/dL (8.9-20.6); Calc. Creatinine Clearance 108 mL/min (70-130); Calcium 8.4 mg/dL (7.8-10.44); Carbon Dioxide 30 mmol/L (22-29); Chloride 105 mmol/L (98-107); Estimated GFR 93; Glucose 163 mg/dL (70-105); Magnesium 2.1 mg/dL (1.6-2.6); Phosphorus 4.4 mg/dL (2.3-4.7); Potassium 4.7 mmol/L (3.5-5.1); Sodium 140 mmol/L (136-145)
[2023-02-22 07:41] LABS: Base Excess (BEa) 3.7 mEq/L (-2.0 to +3.0); Calcium, Ionized (arterial) 1.21 mmol/L (1.12-1.30); Carboxyhemoglobin (COHb) 0.9 gm% (0.0-3.0); Hemoglobin (Hb) 9.8 g/dL (14.0-18.0); O2 Tension (PaO2), arterial 83.3 mmHg (80.0-100.0); Potassium - ABG Lab 4.85 mmol/L (3.70-5.30); pH, Arterial 7.22 (7.35-7.45)
[2023-02-22 07:47] LABS: Puncture Site LRA
[2023-02-22 07:49] LABS: ALV-art Gradient 98.775 mmHg (0-20)
[2023-02-22] MEDS ORDERED: Furosemide 40 MG/4 ML VIAL SLOW IVP SCH ×2 (08:45→19:00)
[2023-02-22] MEDS: Senokot S 8.6-50 MG TAB PO SCH ×2 (09:00→20:07)
[2023-02-22] MEDS: Ascorbic Acid 500 mg Chewable Tablet PO SCH ×2 (09:00→20:08)
[2023-02-22] MEDS: Pantoprazole 40 MG VIAL IVP SCH (09:01)
[2023-02-22] MEDS: clonazePAM 1 MG TAB PO SCH ×3 (09:01→20:07)
[2023-02-22] MEDS: Thiamine 100 MG TAB PER TUBE SCH (09:01)
[2023-02-22] MEDS: Folic Acid 1 MG TAB PER TUBE SCH (09:01)
[2023-02-22] MEDS: Polyethylene Glycol 3350 17 GM Packet PO SCH (09:01)
[2023-02-22] MEDS: Saccharomyces boulardii 250 MG CAP PER TUBE SCH ×2 (09:01→20:07)
[2023-02-22] MEDS: carBAMazepine 200 MG TAB PO SCH ×3 (09:02→20:08)
[2023-02-22 11:52] LABS: Actual Bicarbonate (HCO3a) 31.8 mEq/L (22-28); Base Excess (BEa) 4.4 mEq/L (-2.0 to +3.0); Calcium, Ionized (arterial) 1.17 mmol/L (1.12-1.30); O2 Tension (PaO2), arterial 81.2 mmHg (80.0-100.0); pH, Arterial 7.29 (7.35-7.45)
[2023-02-22 13:57] LABS: ALV-art Gradient 120.125 mmHg (0-20); Puncture Site LRA
[2023-02-22] MEDS: CALCIUM GLUCONATE IV SCH (14:36)
[2023-02-22] MEDS: [UNRECOGNIZED DRUG - OTHER] IV SCH (14:36)
[2023-02-22] MEDS: POTASSIUM PHOSPHATE IV SCH (14:36)
[2023-02-22] MEDS: POTASSIUM CHLORIDE IV SCH (14:36)
[2023-02-22] MEDS: Fluconazole In NaCl,Iso-Osm 200 MG in Premix Bag 1 BAG IVPB SCH (18:07)
[2023-02-23] MEDS: Fentanyl CADD 100 ML IV SCH ×2 (00:26→23:51)
[2023-02-23] MEDS: Albuterol 200 PUFF (6.7GM INHALER) INH SCH ×6 (02:20→22:38)
[2023-02-23] MEDS: Ipratropium 200 Puff Oral Inhaler INH SCH ×6 (02:20→22:39)
[2023-02-23] MEDS: Acetaminophen 325 MG TAB PO SCH ×4 (03:03→20:17)
[2023-02-23] MEDS: HumaLOG 300 UNITS/3 ML VIAL SC PRN ×4 (04:30→22:58)
[2023-02-23] MEDS: Propofol 1,000 MG/100 ML VIAL IV PRN (04:30)
[2023-02-23 04:40] LABS: Anion Gap 9 mmol/L (10-20); BUN (Urea Nitrogen) 59 mg/dL (8.9-20.6); Calc. Creatinine Clearance 107 mL/min (70-130); Calcium 8.4 mg/dL (7.8-10.44); Carbon Dioxide 33 mmol/L (22-29); Chloride 103 mmol/L (98-107); Estimated GFR 92; Glucose 173 mg/dL (70-105); Phosphorus 4.2 mg/dL (2.3-4.7); Potassium 4.9 mmol/L (3.5-5.1); Sodium 140 mmol/L (136-145)
[2023-02-23 04:51] LABS: Anisocytosis SLIGHT = 6-15 cells (100X) (0-5/hpf); Band 3 % (5-11); Hemoglobin 7.5 g/dL (14.0-18.0); Lymphocytes 11 % (21-51); MDiff Complete? YES; Macrocytosis SLIGHT = 6-15 cells (100X) (0-5/hpf); Mean Corpuscular HGB CONC 31.9 g/dL (32.0-36.0); Mean Corpuscular Hemoglobin 31.4 pg (27.0-31.0); Mean Corpuscular Volume 98.4 fl (78.0-98.0); Mean Platelet Volume 9.1 fL (7.4-10.4); Metamyelocyte 3 % (0-0); Monocytes 1 % (0-10); Myelocyte 2 % (0-0); Neutrophil 80 % (42-75); Ovalocytes SLIGHT = 2-5 cells (100X) (0-1/hpf); Platelet Count 233 10x3/uL (130-400); Platelet Morphology Comment Appears Adequate; Polychromasia SLIGHT = 2-3 cells (100X) (0-2/hpf); RBC Distribution Width 15.1 % (11.5-14.5); Tear Drops SLIGHT = 2-5 cells (100X) (0-1/hpf); White Blood Cell (WBC) Count 10.6 10x3/uL (4.8-10.8)
[2023-02-23] MEDS: cloNIDine 0.2 MG TAB PO SCH ×4 (05:10→22:54)
[2023-02-23] MEDS: Metoprolol Tartrate 50 MG TAB PO SCH ×3 (05:11→20:16)
[2023-02-23] MEDS: methylPREDNISolone Sod Succ 40 MG VIAL IVP SCH ×4 (05:12→22:54)
[2023-02-23] MEDS: hydrALAZINE 20 MG/ML VIAL SLOW IVP PRN ×3 (08:24→18:58)
[2023-02-23] MEDS: Senokot S 8.6-50 MG TAB PO SCH ×2 (08:25→20:16)
[2023-02-23] MEDS: carBAMazepine 200 MG TAB PO SCH ×3 (08:25→20:16)
[2023-02-23] MEDS: Thiamine 100 MG TAB PER TUBE SCH (08:25)
[2023-02-23] MEDS: Ascorbic Acid 500 mg Chewable Tablet PO SCH ×2 (08:25→20:15)
[2023-02-23] MEDS: Pantoprazole 40 MG VIAL IVP SCH (08:25)
[2023-02-23] MEDS: clonazePAM 1 MG TAB PO SCH ×3 (08:26→20:16)
[2023-02-23] MEDS: Folic Acid 1 MG TAB PER TUBE SCH (08:26)
[2023-02-23] MEDS: Saccharomyces boulardii 250 MG CAP PER TUBE SCH ×2 (08:26→20:16)
[2023-02-23] MEDS: Polyethylene Glycol 3350 17 GM Packet PO SCH (08:27)
[2023-02-23 08:48] LABS: Actual Bicarbonate (HCO3a) 30.6 mEq/L (22-28); Base Excess (BEa) 5.5 mEq/L (-2.0 to +3.0); CO2 Tension 48.3 mmHg (35.0-45.0); Calcium, Ionized (arterial) 1.17 mmol/L (1.12-1.30); Carboxyhemoglobin (COHb) 0.6 gm% (0.0-3.0); Hemoglobin (Hb) 8.8 g/dL (14.0-18.0); O2 Tension (PaO2), arterial 103.7 mmHg (80.0-100.0); Potassium - ABG Lab 4.81 mmol/L (3.70-5.30); pH, Arterial 7.42 (7.35-7.45)
[2023-02-23 08:49] LABS: ALV-art Gradient 121.125 mmHg (0-20); Puncture Site RBA
[2023-02-23] MEDS ORDERED: Morphine 4 MG/ML VIAL SLOW IVP PRN (08:52)
[2023-02-23] MEDS ORDERED: Fluconazole 100 MG TAB PER TUBE SCH (09:00)
[2023-02-23] MEDS ORDERED: hydrALAZINE 20 MG/ML VIAL SLOW IVP PRN (09:01)
[2023-02-23] MEDS: Metolazone 2.5 MG TAB PO SCH (09:09)
[2023-02-23] MEDS ORDERED: hydrALAZINE 20 MG/ML VIAL SLOW IVP SCH (10:11)
[2023-02-23] MEDS ORDERED: Labetalol HCl 100 MG/20 ML VIAL ONE (10:34)
[2023-02-23] MEDS: Labetalol HCl 100 MG/20 ML VIAL SLOW IVP PRN (11:40)
[2023-02-23] MEDS ORDERED: POTASSIUM PHOSPHATE IV SCH (14:00)
[2023-02-23] MEDS ORDERED: CALCIUM GLUCONATE IV SCH (14:00)
[2023-02-23] MEDS ORDERED: [UNRECOGNIZED DRUG - OTHER] IV SCH (14:00)
[2023-02-23 14:55] LABS: CO2 Tension 66.2 mmHg (35.0-45.0)
[2023-02-23 15:06] LABS: CO2 Tension 82.5 mmHg (35.0-45.0)
[2023-02-23 15:09] LABS: CO2 Tension 67.1 mmHg (35.0-45.0)
[2023-02-23] MEDS: Morphine 4 MG/ML VIAL SLOW IVP PRN ×3 (15:39→23:14)
[2023-02-23] MEDS ORDERED: Phentolamine Mesylate 5 MG VIAL IVP SCH (20:00)
[2023-02-23] MEDS: Pregabalin 50 MG CAP PO SCH (20:16)
[2023-02-23] MEDS: Melatonin 3 MG TAB PO PRN (20:16)
[2023-02-23] MEDS: Metoclopramide HCl 10 MG/2 ML VIAL IVP SCH (22:49)
[2023-02-24] MEDS: Labetalol HCl 100 MG/20 ML VIAL SLOW IVP PRN ×5 (00:04→19:09)
[2023-02-24] MEDS: hydrALAZINE 20 MG/ML VIAL SLOW IVP PRN ×4 (02:08→23:09)
[2023-02-24] MEDS: Albuterol 200 PUFF (6.7GM INHALER) INH SCH ×6 (02:52→22:28)
[2023-02-24] MEDS: Ipratropium 200 Puff Oral Inhaler INH SCH ×6 (02:53→22:28)
[2023-02-24] MEDS: Acetaminophen 325 MG TAB PO SCH ×4 (03:09→20:52)
[2023-02-24 04:44] LABS: Phosphorus 3.6 mg/dL (2.3-4.7)
[2023-02-24 04:47] LABS: Anion Gap 11 mmol/L (10-20); BUN (Urea Nitrogen) 54 mg/dL (8.9-20.6); Calc. Creatinine Clearance 122 mL/min (70-130); Calcium 8.8 mg/dL (7.8-10.44); Carbon Dioxide 35 mmol/L (22-29); Chloride 101 mmol/L (98-107); Estimated GFR 108; Glucose 157 mg/dL (70-105); Potassium 4.5 mmol/L (3.5-5.1); Sodium 142 mmol/L (136-145)
[2023-02-24] MEDS: Acetaminophen/Codeine 30-300mg Tablet PO PRN (04:53)
[2023-02-24] MEDS: Metoprolol Tartrate 50 MG TAB PO SCH ×3 (04:54→20:53)
[2023-02-24] MEDS: Metoclopramide HCl 10 MG/2 ML VIAL IVP SCH ×3 (04:54→23:11)
[2023-02-24] MEDS: cloNIDine 0.2 MG TAB PO SCH (04:54)
[2023-02-24] MEDS: methylPREDNISolone Sod Succ 40 MG VIAL IVP SCH ×4 (04:55→23:11)
[2023-02-24 05:11] LABS: Band 4 % (5-11); Hemoglobin 8.9 g/dL (14.0-18.0); Hypochromia SLIGHT = 6-15 cells (100X) (0-5/hpf); Lymphocytes 10 % (21-51); MDiff Complete? YES; Mean Corpuscular Hemoglobin 32.3 pg (27.0-31.0); Mean Platelet Volume 9.1 fL (7.4-10.4); Monocytes 7 % (0-10); Neutrophil 79 % (42-75); Nucleated RBC 1 % (0); Platelet Count 260 10x3/uL (130-400); Platelet Morphology Comment Appears Adequate; RBC Distribution Width 16.6 % (11.5-14.5); Red Blood Cell (RBC) Count 2.76 mill/uL (4.70-6.10); White Blood Cell (WBC) Count 17.4 10x3/uL (4.8-10.8)
[2023-02-24] MEDS: clonazePAM 1 MG TAB PO SCH ×3 (08:29→20:55)
[2023-02-24] MEDS: Pregabalin 50 MG CAP PO SCH ×2 (08:29→20:53)
[2023-02-24] MEDS: Ascorbic Acid 500 mg Chewable Tablet PO SCH ×2 (08:29→20:53)
[2023-02-24] MEDS: Polyethylene Glycol 3350 17 GM Packet PO SCH (08:29)
[2023-02-24] MEDS: Folic Acid 1 MG TAB PER TUBE SCH (08:29)
[2023-02-24] MEDS: Metolazone 2.5 MG TAB PO SCH (08:29)
[2023-02-24] MEDS: Thiamine 100 MG TAB PER TUBE SCH (08:30)
[2023-02-24] MEDS: Saccharomyces boulardii 250 MG CAP PER TUBE SCH ×2 (08:30→20:53)
[2023-02-24] MEDS: Pantoprazole 40 MG VIAL IVP SCH (08:31)
[2023-02-24] MEDS: Senokot S 8.6-50 MG TAB PO SCH ×2 (08:31→20:53)
[2023-02-24] MEDS: carBAMazepine 200 MG TAB PO SCH ×3 (08:31→20:55)
[2023-02-24 08:34] LABS: Actual Bicarbonate (HCO3a) 28.8 mEq/L (22-28); Base Excess (BEa) 3.1 mEq/L (-2.0 to +3.0); CO2 Tension 49.8 mmHg (35.0-45.0); Calcium, Ionized (arterial) 1.19 mmol/L (1.12-1.30); Carboxyhemoglobin (COHb) 0.8 gm% (0.0-3.0); Hemoglobin (Hb) 9.5 g/dL (14.0-18.0); O2 Tension (PaO2), arterial 109.7 mmHg (80.0-100.0); Potassium - ABG Lab 4.55 mmol/L (3.70-5.30); pH, Arterial 7.38 (7.35-7.45)
[2023-02-24 08:35] LABS: Puncture Site LRA
[2023-02-24] MEDS: Morphine 4 MG/ML VIAL SLOW IVP PRN ×3 (08:44→21:12)
[2023-02-24] MEDS: Micafungin 100 MG in Sodium Chloride 0.9% 100 ML IVPB SCH (08:45)
[2023-02-24] MEDS ORDERED: cloNIDine 0.2 MG TAB PO SCH (09:03)
[2023-02-24] MEDS: Fentanyl CADD 100 ML IV SCH (10:47)
[2023-02-24] MEDS ORDERED: Acetaminophen/Codeine 30-300mg Tablet PO SCH (12:00)
[2023-02-24] MEDS: Hydrocodone-Acetamin 15 ML UDCUP PER TUBE SCH ×3 (12:18→23:10)
[2023-02-24] MEDS: cloNIDine 0.3 MG TAB PO SCH ×3 (12:18→23:10)
[2023-02-24] MEDS ORDERED: POTASSIUM PHOSPHATE IV SCH (14:00)
[2023-02-24] MEDS ORDERED: CALCIUM GLUCONATE IV SCH (14:00)
[2023-02-24] MEDS ORDERED: [UNRECOGNIZED DRUG - OTHER] IV SCH (14:00)
[2023-02-24] MEDS: HumaLOG 300 UNITS/3 ML VIAL SC PRN (16:50)
[2023-02-24] MEDS: Melatonin 3 MG TAB PO PRN (20:54)
[2023-02-25] MEDS: hydrALAZINE 20 MG/ML VIAL SLOW IVP PRN (01:13)
[2023-02-25] MEDS: Albuterol 200 PUFF (6.7GM INHALER) INH SCH ×6 (02:01→22:25)
[2023-02-25] MEDS: Ipratropium 200 Puff Oral Inhaler INH SCH ×6 (02:02→22:25)
[2023-02-25] MEDS: Labetalol HCl 100 MG/20 ML VIAL SLOW IVP PRN (02:36)
[2023-02-25] MEDS: Morphine 4 MG/ML VIAL SLOW IVP PRN ×2 (02:37→14:05)
[2023-02-25] MEDS: Acetaminophen 325 MG TAB PO SCH ×4 (02:40→20:02)
[2023-02-25 05:26] LABS: Anion Gap 10 mmol/L (10-20); BUN (Urea Nitrogen) 47 mg/dL (8.9-20.6); Calc. Creatinine Clearance 128 mL/min (70-130); Calcium 8.7 mg/dL (7.8-10.44); Carbon Dioxide 35 mmol/L (22-29); Chloride 100 mmol/L (98-107); Estimated GFR 109; Glucose 159 mg/dL (70-105); Potassium 5.1 mmol/L (3.5-5.1); Sodium 140 mmol/L (136-145)
[2023-02-25 05:49] LABS: Anisocytosis SLIGHT = 6-15 cells (100X) (0-5/hpf); Band 2 % (5-11); Hemoglobin 9.1 g/dL (14.0-18.0); Lymphocytes 2 % (21-51); MDiff Complete? YES; Macrocytosis SLIGHT = 6-15 cells (100X) (0-5/hpf); Mean Corpuscular HGB CONC 32.2 g/dL (32.0-36.0); Mean Corpuscular Hemoglobin 31.9 pg (27.0-31.0); Mean Corpuscular Volume 99.2 fl (78.0-98.0); Mean Platelet Volume 9.2 fL (7.4-10.4); Monocytes 9 % (0-10); Neutrophil 87 % (42-75); Ovalocytes SLIGHT = 2-5 cells (100X) (0-1/hpf); Platelet Count 272 10x3/uL (130-400); Platelet Morphology Comment Appears Adequate; RBC Distribution Width 16.8 % (11.5-14.5); Red Blood Cell (RBC) Count 2.85 mill/uL (4.70-6.10)
[2023-02-25] MEDS: Hydrocodone-Acetamin 15 ML UDCUP PER TUBE SCH ×4 (06:09→23:16)
[2023-02-25] MEDS: cloNIDine 0.3 MG TAB PO SCH ×4 (06:09→23:16)
[2023-02-25] MEDS: Metoprolol Tartrate 50 MG TAB PO SCH ×3 (06:09→22:31)
[2023-02-25] MEDS: Metoclopramide HCl 10 MG/2 ML VIAL IVP SCH ×3 (06:10→22:30)
[2023-02-25] MEDS: methylPREDNISolone Sod Succ 40 MG VIAL IVP SCH ×3 (06:10→22:30)
[2023-02-25] MEDS: Pantoprazole 40 MG VIAL IVP SCH (07:55)
[2023-02-25] MEDS: Polyethylene Glycol 3350 17 GM Packet PO SCH (07:55)
[2023-02-25] MEDS: Thiamine 100 MG TAB PER TUBE SCH (07:55)
[2023-02-25] MEDS: Senokot S 8.6-50 MG TAB PO SCH ×2 (07:55→20:05)
[2023-02-25] MEDS: Ascorbic Acid 500 mg Chewable Tablet PO SCH ×2 (07:55→20:04)
[2023-02-25] MEDS: Folic Acid 1 MG TAB PER TUBE SCH (07:55)
[2023-02-25] MEDS: clonazePAM 1 MG TAB PO SCH ×2 (07:56→20:04)
[2023-02-25] MEDS: Saccharomyces boulardii 250 MG CAP PER TUBE SCH ×2 (07:56→20:04)
[2023-02-25] MEDS: Micafungin 100 MG in Sodium Chloride 0.9% 100 ML IVPB SCH (10:12)
[2023-02-25] MEDS: HumaLOG 300 UNITS/3 ML VIAL SC PRN (11:36)
[2023-02-25] MEDS ORDERED: Losartan 25 MG TAB PO SCH (12:30)
[2023-02-26] MEDS: Albuterol 200 PUFF (6.7GM INHALER) INH SCH ×6 (02:02→22:29)
[2023-02-26] MEDS: Ipratropium 200 Puff Oral Inhaler INH SCH ×6 (02:02→22:30)
[2023-02-26] MEDS: Acetaminophen 325 MG TAB PO SCH ×4 (02:33→20:43)
[2023-02-26] MEDS: Labetalol HCl 100 MG/20 ML VIAL SLOW IVP PRN ×2 (05:11→22:04)
[2023-02-26 05:26] LABS: Band 42 % (5-11); Hypochromia SLIGHT = 6-15 cells (100X) (0-5/hpf); Lymphocytes 3 % (21-51); MDiff Complete? YES; Mean Corpuscular HGB CONC 32.7 g/dL (32.0-36.0); Mean Corpuscular Hemoglobin 31.6 pg (27.0-31.0); Mean Corpuscular Volume 96.6 fl (78.0-98.0); Mean Platelet Volume 9.4 fL (7.4-10.4); Neutrophil 55 % (42-75); Platelet Count 202 10x3/uL (130-400); Platelet Morphology Comment Appears Adequate; RBC Distribution Width 16.3 % (11.5-14.5); Red Blood Cell (RBC) Count 3.15 mill/uL (4.70-6.10); White Blood Cell (WBC) Count 32.1 10x3/uL (4.8-10.8)
[2023-02-26 05:33] LABS: Anion Gap 13 mmol/L (10-20); BUN (Urea Nitrogen) 39 mg/dL (8.9-20.6); Calc. Creatinine Clearance 128 mL/min (70-130); Calcium 8.7 mg/dL (7.8-10.44); Carbon Dioxide 33 mmol/L (22-29); Chloride 98 mmol/L (98-107); Estimated GFR 112; Glucose 85 mg/dL (70-105); Magnesium 1.6 mg/dL (1.6-2.6); Phosphorus 2.8 mg/dL (2.3-4.7); Potassium 4.5 mmol/L (3.5-5.1); Sodium 139 mmol/L (136-145)
[2023-02-26] MEDS: Hydrocodone-Acetamin 15 ML UDCUP PER TUBE SCH ×4 (07:08→23:18)
[2023-02-26] MEDS: cloNIDine 0.3 MG TAB PO SCH ×4 (07:09→23:21)
[2023-02-26] MEDS: methylPREDNISolone Sod Succ 40 MG VIAL IVP SCH ×3 (07:09→21:15)
[2023-02-26] MEDS: Metoclopramide HCl 10 MG/2 ML VIAL IVP SCH (07:09)
[2023-02-26] MEDS: Metoprolol Tartrate 50 MG TAB PO SCH ×3 (07:09→21:15)
[2023-02-26] MEDS ORDERED: Magnesium 2 GM/50 ML(in water) 2 GM in Premix Bag 1 BAG IVPB SCH (07:15)
[2023-02-26] MEDS ORDERED: Meropenem 1 GM in Sodium Chloride 0.9% 100 ML IVPB SCH ×2 (07:15→14:00)
[2023-02-26] MEDS ORDERED: PHOS-NAK 1 PKT PACK PO SCH (08:00)
[2023-02-26] MEDS ORDERED: VANCOMYCIN 2 GRAM/500 ML BAG 2 GM in Premix Bag 1 BAG IVPB SCH (08:30)
[2023-02-26] MEDS: Pantoprazole 40 MG VIAL IVP SCH (08:37)
[2023-02-26] MEDS: clonazePAM 1 MG TAB PO SCH ×2 (08:40→20:44)
[2023-02-26] MEDS: Ascorbic Acid 500 mg Chewable Tablet PO SCH ×2 (08:40→20:44)
[2023-02-26] MEDS: Losartan 25 MG TAB PO SCH (08:40)
[2023-02-26] MEDS: Folic Acid 1 MG TAB PER TUBE SCH (08:40)
[2023-02-26] MEDS: Saccharomyces boulardii 250 MG CAP PER TUBE SCH ×2 (08:41→20:44)
[2023-02-26] MEDS: Thiamine 100 MG TAB PER TUBE SCH (08:41)
[2023-02-26] MEDS: Micafungin 100 MG in Sodium Chloride 0.9% 100 ML IVPB SCH (09:12)
[2023-02-26] MEDS ORDERED: Fentanyl 100 MCG/2 ML VIAL SLOW IVP PRN (09:52)
[2023-02-26] MEDS: Morphine 4 MG/ML VIAL SLOW IVP PRN (11:52)
[2023-02-26] MEDS: Midazolam HCl 2 mg/2 ml Vial SLOW IVP PRN ×3 (11:52→13:29)
[2023-02-26] MEDS ORDERED: Iopamidol-370 76% 500 ML MDV (1 ML CHARGE) ONE (12:41)
[2023-02-26] MEDS ORDERED: Midazolam HCl 2 mg/2 ml Vial SLOW IVP PRN (14:59)
[2023-02-26] MEDS ORDERED: fentaNYL 50 mcg/mL 1 mL Vial SLOW IVP PRN (14:59)
[2023-02-26] MEDS: fentaNYL 50 mcg/mL 1 mL Vial SLOW IVP PRN (16:43)
[2023-02-26] MEDS: hydrALAZINE 20 MG/ML VIAL SLOW IVP PRN (17:19)
[2023-02-26] MEDS: Meropenem 1 GM in Sodium Chloride 0.9% 100 ML IVPB SCH ×2 (17:41→23:17)
[2023-02-26] MEDS: VANCOMYCIN 1.25 GM/250 ML BAG 1.25 GM in Premix Bag 1 BAG IVPB SCH (20:59)
[2023-02-27] MEDS: Acetaminophen 325 MG TAB PO SCH ×4 (02:31→20:48)
[2023-02-27] MEDS: Albuterol 200 PUFF (6.7GM INHALER) INH SCH ×6 (03:01→21:44)
[2023-02-27] MEDS: Ipratropium 200 Puff Oral Inhaler INH SCH ×6 (03:01→21:45)
[2023-02-27] MEDS: Hydrocodone-Acetamin 15 ML UDCUP PER TUBE SCH ×3 (05:27→18:47)
[2023-02-27] MEDS: cloNIDine 0.3 MG TAB PO SCH ×3 (05:27→18:47)
[2023-02-27] MEDS: Metoprolol Tartrate 50 MG TAB PO SCH ×3 (05:27→21:52)
[2023-02-27] MEDS: methylPREDNISolone Sod Succ 40 MG VIAL IVP SCH ×3 (05:29→21:52)
[2023-02-27 06:38] LABS: Mean Corpuscular HGB CONC 32.9 g/dL (32.0-36.0); Mean Corpuscular Hemoglobin 32.3 pg (27.0-31.0); Mean Platelet Volume 9.5 fL (7.4-10.4); Platelet Count 124 10x3/uL (130-400); RBC Distribution Width 15.8 % (11.5-14.5); Red Blood Cell (RBC) Count 2.78 mill/uL (4.70-6.10); White Blood Cell (WBC) Count 21.2 10x3/uL (4.8-10.8)
[2023-02-27 06:54] LABS: Lactic Acid 0.7 mmol/L (0.5-2.2)
[2023-02-27 06:57] LABS: Anion Gap 11 mmol/L (10-20); Anisocytosis SLIGHT = 6-15 cells (100X) (0-5/hpf); BUN (Urea Nitrogen) 28 mg/dL (8.9-20.6); Band 1 % (5-11); Calc. Creatinine Clearance 132 mL/min (70-130); Calcium 8.8 mg/dL (7.8-10.44); Carbon Dioxide 34 mmol/L (22-29); Chloride 99 mmol/L (98-107); Estimated GFR 113; Glucose 119 mg/dL (70-105); Lymphocytes 1 % (21-51); MDiff Complete? YES; Magnesium 1.8 mg/dL (1.6-2.6); Monocytes 3 % (0-10); Neutrophil 95 % (42-75); Platelet Morphology Comment Appears Decreased; Polychromasia SLIGHT = 2-3 cells (100X) (0-2/hpf); Potassium 4.1 mmol/L (3.5-5.1); Sodium 140 mmol/L (136-145)
[2023-02-27 07:22] LABS: Actual Bicarbonate (HCO3a) 31.2 mEq/L (22-28); Base Excess (BEa) 6.5 mEq/L (-2.0 to +3.0); CO2 Tension 45.8 mmHg (35.0-45.0); Calcium, Ionized (arterial) 1.12 mmol/L (1.12-1.30); Carboxyhemoglobin (COHb) 1.3 gm% (0.0-3.0); Hemoglobin (Hb) 9.7 g/dL (14.0-18.0); O2 Tension (PaO2), arterial 79.7 mmHg (80.0-100.0); Potassium - ABG Lab 3.94 mmol/L (3.70-5.30); pH, Arterial 7.45 (7.35-7.45)
[2023-02-27 07:40] LABS: Puncture Site LRA
[2023-02-27] MEDS: Meropenem 1 GM in Sodium Chloride 0.9% 100 ML IVPB SCH (07:57)
[2023-02-27] MEDS: Morphine 4 MG/ML VIAL SLOW IVP PRN ×2 (07:58→17:06)
[2023-02-27] MEDS ORDERED: Magnesium 2 GM/50 ML(in water) 2 GM in Premix Bag 1 BAG IVPB SCH (08:00)
[2023-02-27] MEDS: Micafungin 100 MG in Sodium Chloride 0.9% 100 ML IVPB SCH (08:06)
[2023-02-27] MEDS: Pantoprazole 40 MG VIAL IVP SCH (08:11)
[2023-02-27] MEDS: Ascorbic Acid 500 mg Chewable Tablet PO SCH ×2 (08:12→20:49)
[2023-02-27] MEDS: Saccharomyces boulardii 250 MG CAP PER TUBE SCH ×2 (08:12→20:49)
[2023-02-27] MEDS: Losartan 25 MG TAB PO SCH (08:12)
[2023-02-27] MEDS: Thiamine 100 MG TAB PER TUBE SCH (08:12)
[2023-02-27] MEDS: Folic Acid 1 MG TAB PER TUBE SCH (08:12)
[2023-02-27] MEDS: clonazePAM 1 MG TAB PO SCH ×2 (08:13→20:49)
[2023-02-27] MEDS: VANCOMYCIN 1.25 GM/250 ML BAG 1.25 GM in Premix Bag 1 BAG IVPB SCH ×2 (09:54→20:49)
[2023-02-27] MEDS: Cefepime 2 GM in Sodium Chloride 0.9% 100 ML IVPB SCH (16:17)
[2023-02-27] MEDS: HumaLOG 300 UNITS/3 ML VIAL SC PRN (20:50)
[2023-02-27 22:01] LABS: Vancomycin, Trough 23.5 ug/mL
[2023-02-28] MEDS: Hydrocodone-Acetamin 15 ML UDCUP PER TUBE SCH ×5 (00:06→23:47)
[2023-02-28] MEDS: cloNIDine 0.3 MG TAB PO SCH ×4 (00:07→17:52)
[2023-02-28] MEDS: Morphine 4 MG/ML VIAL SLOW IVP PRN ×2 (01:29→09:21)
[2023-02-28] MEDS: Acetaminophen 325 MG TAB PO SCH ×4 (02:25→20:54)
[2023-02-28] MEDS: Albuterol 200 PUFF (6.7GM INHALER) INH SCH ×6 (02:29→21:32)
[2023-02-28] MEDS: Ipratropium 200 Puff Oral Inhaler INH SCH ×6 (02:30→21:33)
[2023-02-28] MEDS: Cefepime 2 GM in Sodium Chloride 0.9% 100 ML IVPB SCH ×2 (03:09→16:27)
[2023-02-28] MEDS: HumaLOG 300 UNITS/3 ML VIAL SC PRN (03:22)
[2023-02-28] MEDS: Metoprolol Tartrate 50 MG TAB PO SCH ×3 (05:10→21:54)
[2023-02-28] MEDS: methylPREDNISolone Sod Succ 40 MG VIAL IVP SCH ×3 (05:11→21:54)
[2023-02-28 05:44] LABS: #Lymphocytes 0.7 thou/uL (1.20-3.40); #Monocytes 0.8 thou/uL (0.11-0.59); #Neutrophils 15.5 thou/uL (1.40-6.50); %Basophils 0.1 % (0.0-1.0); %Eosinophils 0.1 % (0.0-10.0); %Lymphocytes 4.2 % (21.0-51.0); %Monocytes 4.8 % (0.0-10.0); %Neutrophils 90.8 % (42.0-75.0); Hemoglobin 8.3 g/dL (14.0-18.0); Mean Corpuscular HGB CONC 31.2 g/dL (32.0-36.0); Mean Corpuscular Hemoglobin 30.6 pg (27.0-31.0); Mean Corpuscular Volume 98.3 fl (78.0-98.0); Mean Platelet Volume 9.6 fL (7.4-10.4); Platelet Count 120 10x3/uL (130-400); RBC Distribution Width 15.2 % (11.5-14.5); Red Blood Cell (RBC) Count 2.71 mill/uL (4.70-6.10); White Blood Cell (WBC) Count 17.1 10x3/uL (4.8-10.8)
[2023-02-28 06:09] LABS: Anion Gap 11 mmol/L (10-20); BUN (Urea Nitrogen) 32 mg/dL (8.9-20.6); Calc. Creatinine Clearance 132 mL/min (70-130); Calcium 8.5 mg/dL (7.8-10.44); Carbon Dioxide 31 mmol/L (22-29); Chloride 103 mmol/L (98-107); Estimated GFR 113; Glucose 116 mg/dL (70-105); Magnesium 1.9 mg/dL (1.6-2.6); Phosphorus 3.3 mg/dL (2.3-4.7); Potassium 4.1 mmol/L (3.5-5.1); Sodium 141 mmol/L (136-145)
[2023-02-28] MEDS: Micafungin 100 MG in Sodium Chloride 0.9% 100 ML IVPB SCH (09:25)
[2023-02-28] MEDS: VANCOMYCIN 1.25 GM/250 ML BAG 1.25 GM in Premix Bag 1 BAG IVPB SCH ×2 (09:25→20:56)
[2023-02-28] MEDS: Saccharomyces boulardii 250 MG CAP PER TUBE SCH ×2 (09:35→20:55)
[2023-02-28] MEDS: Ascorbic Acid 500 mg Chewable Tablet PO SCH ×2 (09:36→20:55)
[2023-02-28] MEDS: clonazePAM 1 MG TAB PO SCH ×2 (09:36→20:55)
[2023-02-28] MEDS: Folic Acid 1 MG TAB PER TUBE SCH (09:36)
[2023-02-28] MEDS: Losartan 25 MG TAB PO SCH (09:36)
[2023-02-28] MEDS: Pantoprazole 40 MG VIAL IVP SCH (09:36)
[2023-02-28] MEDS: Thiamine 100 MG TAB PER TUBE SCH (09:37)
[2023-02-28] MEDS: hydrALAZINE 20 MG/ML VIAL SLOW IVP PRN (16:28)
[2023-02-28] MEDS: Ondansetron PF 4 MG/2 ML Vial IVP PRN (17:43)
[2023-02-28] MEDS: Morphine 2 MG/ML VIAL SLOW IVP PRN (18:07)
[2023-03-01] MEDS: cloNIDine 0.3 MG TAB PO SCH ×5 (00:04→23:44)
[2023-03-01] MEDS: HumaLOG 300 UNITS/3 ML VIAL SC PRN (00:39)
[2023-03-01] MEDS: Ipratropium 200 Puff Oral Inhaler INH SCH ×6 (01:58→22:40)
[2023-03-01] MEDS: Albuterol 200 PUFF (6.7GM INHALER) INH SCH ×6 (01:58→22:40)
[2023-03-01] MEDS: Acetaminophen 325 MG TAB PO SCH ×4 (02:19→20:14)
[2023-03-01] MEDS: Morphine 2 MG/ML VIAL SLOW IVP PRN (02:53)
[2023-03-01] MEDS: Cefepime 2 GM in Sodium Chloride 0.9% 100 ML IVPB SCH ×2 (03:01→16:30)
[2023-03-01 03:56] LABS: #Lymphocytes 0.4 thou/uL (1.20-3.40); #Monocytes 0.4 thou/uL (0.11-0.59); #Neutrophils 15.6 thou/uL (1.40-6.50); %Basophils 0.1 % (0.0-1.0); %Lymphocytes 2.2 % (21.0-51.0); %Monocytes 2.4 % (0.0-10.0); %Neutrophils 95.3 % (42.0-75.0); Hemoglobin 10.5 g/dL (14.0-18.0); Mean Corpuscular HGB CONC 32.8 g/dL (32.0-36.0); Mean Corpuscular Hemoglobin 32.4 pg (27.0-31.0); Mean Corpuscular Volume 98.9 fl (78.0-98.0); Mean Platelet Volume 10.4 fL (7.4-10.4); Platelet Count 125 10x3/uL (130-400); RBC Distribution Width 14.8 % (11.5-14.5); Red Blood Cell (RBC) Count 3.24 mill/uL (4.70-6.10); White Blood Cell (WBC) Count 16.3 10x3/uL (4.8-10.8)
[2023-03-01 04:42] LABS: Anion Gap 15 mmol/L (10-20); BUN (Urea Nitrogen) 32 mg/dL (8.9-20.6); Calc. Creatinine Clearance 132 mL/min (70-130); Calcium 8.8 mg/dL (7.8-10.44); Carbon Dioxide 26 mmol/L (22-29); Chloride 106 mmol/L (98-107); Estimated GFR 113; Glucose 132 mg/dL (70-105); Potassium 4.8 mmol/L (3.5-5.1); Sodium 142 mmol/L (136-145)
[2023-03-01] MEDS: Hydrocodone-Acetamin 15 ML UDCUP PER TUBE SCH ×4 (05:03→23:42)
[2023-03-01] MEDS: Metoprolol Tartrate 50 MG TAB PO SCH ×2 (05:04→14:58)
[2023-03-01] MEDS: methylPREDNISolone Sod Succ 40 MG VIAL IVP SCH ×3 (05:04→23:44)
[2023-03-01] MEDS: Labetalol HCl 100 MG/20 ML VIAL SLOW IVP PRN (08:29)
[2023-03-01] MEDS: Micafungin 100 MG in Sodium Chloride 0.9% 100 ML IVPB SCH (08:33)
[2023-03-01 08:51] LABS: Vancomycin, Trough 30.5 ug/mL
[2023-03-01] MEDS: Pantoprazole 40 MG VIAL IVP SCH (08:56)
[2023-03-01] MEDS: Saccharomyces boulardii 250 MG CAP PER TUBE SCH ×2 (08:59→20:14)
[2023-03-01] MEDS: Losartan 25 MG TAB PO SCH (08:59)
[2023-03-01] MEDS: clonazePAM 1 MG TAB PO SCH ×2 (08:59→20:14)
[2023-03-01] MEDS: Folic Acid 1 MG TAB PER TUBE SCH (08:59)
[2023-03-01] MEDS: Ascorbic Acid 500 mg Chewable Tablet PO SCH ×2 (09:00→20:14)
[2023-03-01] MEDS: VANCOMYCIN 1.25 GM/250 ML BAG 1.25 GM in Premix Bag 1 BAG IVPB SCH ×2 (09:00→23:41)
[2023-03-01] MEDS: Thiamine 100 MG TAB PER TUBE SCH (09:00)
[2023-03-01] MEDS ORDERED: VANCOMYCIN 750 MG/250 ML BAG 750 MG in Sodium Chloride 0.9% 250 ML 250 ML IVPB SCH ×2 (09:15→21:00)
[2023-03-01] MEDS: hydrALAZINE 20 MG/ML VIAL SLOW IVP PRN (20:15)
[2023-03-01 20:40] LABS: Vancomycin, Random 15.5 ug/mL (See Comment)
[2023-03-02] MEDS: Metoprolol Tartrate 50 MG TAB PO SCH ×4 (00:12→23:21)
[2023-03-02] MEDS: Morphine 2 MG/ML VIAL SLOW IVP PRN ×3 (01:26→20:20)
[2023-03-02] MEDS: Albuterol 200 PUFF (6.7GM INHALER) INH SCH ×6 (02:30→22:29)
[2023-03-02] MEDS: Ipratropium 200 Puff Oral Inhaler INH SCH ×6 (02:30→22:29)
[2023-03-02] MEDS: Cefepime 2 GM in Sodium Chloride 0.9% 100 ML IVPB SCH ×3 (04:22→19:52)
[2023-03-02] MEDS: Acetaminophen 325 MG TAB PO SCH ×4 (04:23→21:24)
[2023-03-02] MEDS: methylPREDNISolone Sod Succ 40 MG VIAL IVP SCH ×3 (05:42→21:24)
[2023-03-02] MEDS: Hydrocodone-Acetamin 15 ML UDCUP PER TUBE SCH ×3 (05:42→19:51)
[2023-03-02] MEDS: cloNIDine 0.3 MG TAB PO SCH ×3 (05:43→19:51)
[2023-03-02] MEDS: hydrALAZINE 20 MG/ML VIAL SLOW IVP PRN ×3 (06:39→21:25)
[2023-03-02 07:49] LABS: #Lymphocytes 0.3 thou/uL (1.20-3.40); #Monocytes 0.6 thou/uL (0.11-0.59); #Neutrophils 10.1 thou/uL (1.40-6.50); %Eosinophils 0.1 % (0.0-10.0); %Lymphocytes 2.7 % (21.0-51.0); %Monocytes 5.7 % (0.0-10.0); %Neutrophils 91.5 % (42.0-75.0); Hemoglobin 8.9 g/dL (14.0-18.0); Mean Corpuscular HGB CONC 30.8 g/dL (32.0-36.0); Mean Corpuscular Hemoglobin 30.3 pg (27.0-31.0); Mean Corpuscular Volume 98.4 fl (78.0-98.0); Mean Platelet Volume 9.7 fL (7.4-10.4); Platelet Count 157 10x3/uL (130-400); RBC Distribution Width 14.6 % (11.5-14.5); Red Blood Cell (RBC) Count 2.94 mill/uL (4.70-6.10); White Blood Cell (WBC) Count 11.1 10x3/uL (4.8-10.8)
[2023-03-02 08:11] LABS: Anion Gap 11 mmol/L (10-20); BUN (Urea Nitrogen) 33 mg/dL (8.9-20.6); Calc. Creatinine Clearance 125 mL/min (70-130); Calcium 8.9 mg/dL (7.8-10.44); Carbon Dioxide 32 mmol/L (22-29); Chloride 105 mmol/L (98-107); Estimated GFR 116; Glucose 155 mg/dL (70-105); Magnesium 1.7 mg/dL (1.6-2.6); Phosphorus 3.2 mg/dL (2.3-4.7); Potassium 4.4 mmol/L (3.5-5.1); Sodium 144 mmol/L (136-145)
[2023-03-02] MEDS: Saccharomyces boulardii 250 MG CAP PER TUBE SCH ×2 (08:39→21:25)
[2023-03-02] MEDS: Folic Acid 1 MG TAB PER TUBE SCH (08:39)
[2023-03-02] MEDS: Ascorbic Acid 500 mg Chewable Tablet PO SCH ×2 (08:39→21:24)
[2023-03-02] MEDS: Pantoprazole 40 MG VIAL IVP SCH (08:39)
[2023-03-02] MEDS: Thiamine 100 MG TAB PER TUBE SCH (08:39)
[2023-03-02] MEDS: clonazePAM 1 MG TAB PO SCH ×2 (08:41→21:24)
[2023-03-02] MEDS: Losartan 25 MG TAB PO SCH (08:41)
[2023-03-02] MEDS ORDERED: Magnesium 2 GM/50 ML(in water) 2 GM in Premix Bag 1 BAG IVPB SCH (08:45)
[2023-03-02] MEDS: Micafungin 100 MG in Sodium Chloride 0.9% 100 ML IVPB SCH (10:17)
[2023-03-02] MEDS ORDERED: Lidocaine 1% (PF) 30 ML VIAL FS SCH (13:15)
[2023-03-02] MEDS ORDERED: Propofol 1,000 MG/100 ML VIAL IV ONE (17:29)
[2023-03-02] MEDS ORDERED: Propofol BOLUS 1,000 MG/100 ML VIAL IV PRN (17:45)
[2023-03-02] MEDS ORDERED: Propofol 1,000 MG/100 ML VIAL IV PRN (17:45)
[2023-03-02] MEDS: VANCOMYCIN 1.25 GM/250 ML BAG 1.25 GM in Premix Bag 1 BAG IVPB SCH (23:36)
[2023-03-03] MEDS: Hydrocodone-Acetamin 15 ML UDCUP PER TUBE SCH ×6 (00:17→23:59)
[2023-03-03] MEDS: cloNIDine 0.3 MG TAB PO SCH ×5 (00:17→23:59)
[2023-03-03] MEDS: Morphine 2 MG/ML VIAL SLOW IVP PRN ×2 (00:43→21:06)
[2023-03-03] MEDS: hydrALAZINE 20 MG/ML VIAL SLOW IVP PRN ×3 (01:34→16:29)
[2023-03-03] MEDS: Albuterol 200 PUFF (6.7GM INHALER) INH SCH ×6 (02:09→22:00)
[2023-03-03] MEDS: Ipratropium 200 Puff Oral Inhaler INH SCH ×2 (02:09→06:33)
[2023-03-03] MEDS: fentaNYL 50 mcg/mL 1 mL Vial SLOW IVP PRN ×4 (03:03→22:19)
[2023-03-03] MEDS: Acetaminophen 325 MG TAB PO SCH ×4 (03:04→20:43)
[2023-03-03] MEDS: Cefepime 2 GM in Sodium Chloride 0.9% 100 ML IVPB SCH ×3 (03:25→19:22)
[2023-03-03] MEDS: methylPREDNISolone Sod Succ 40 MG VIAL IVP SCH ×2 (05:44→15:17)
[2023-03-03] MEDS: Metoprolol Tartrate 50 MG TAB PO SCH ×3 (05:45→21:00)
[2023-03-03] MEDS ORDERED: niCARdipine 25 MG in Sodium Chloride 0.9% 250 ML 250 ML IVPB SCH (06:45)
[2023-03-03 07:35] LABS: #Lymphocytes 0.6 thou/uL (1.20-3.40); #Monocytes 1.2 thou/uL (0.11-0.59); #Neutrophils 11.8 thou/uL (1.40-6.50); %Eosinophils 0.2 % (0.0-10.0); %Lymphocytes 4.2 % (21.0-51.0); %Monocytes 8.8 % (0.0-10.0); %Neutrophils 86.9 % (42.0-75.0); Hemoglobin 8.3 g/dL (14.0-18.0); Mean Corpuscular HGB CONC 30.9 g/dL (32.0-36.0); Mean Corpuscular Hemoglobin 30.2 pg (27.0-31.0); Mean Corpuscular Volume 97.6 fl (78.0-98.0); Mean Platelet Volume 9.4 fL (7.4-10.4); Platelet Count 170 10x3/uL (130-400); RBC Distribution Width 14.6 % (11.5-14.5); Red Blood Cell (RBC) Count 2.75 mill/uL (4.70-6.10); White Blood Cell (WBC) Count 13.6 10x3/uL (4.8-10.8)
[2023-03-03 07:52] LABS: Phosphorus 2.9 mg/dL (2.3-4.7)
[2023-03-03 07:55] LABS: Anion Gap 10 mmol/L (10-20); BUN (Urea Nitrogen) 28 mg/dL (8.9-20.6); Calc. Creatinine Clearance 125 mL/min (70-130); Calcium 8.7 mg/dL (7.8-10.44); Carbon Dioxide 33 mmol/L (22-29); Chloride 103 mmol/L (98-107); Estimated GFR 117; Glucose 132 mg/dL (70-105); Magnesium 1.7 mg/dL (1.6-2.6); Potassium 3.8 mmol/L (3.5-5.1); Sodium 142 mmol/L (136-145)
[2023-03-03] MEDS ORDERED: Magnesium 2 GM/50 ML(in water) 2 GM in Premix Bag 1 BAG IVPB SCH (08:15)
[2023-03-03] MEDS ORDERED: Propofol 1,000 MG/100 ML VIAL IV ONE (09:19)
[2023-03-03] MEDS ORDERED: VANCOMYCIN 1.25 GM/250 ML BAG 1.25 GM in Premix Bag 1 BAG IVPB SCH (10:00)
[2023-03-03 10:35] LABS: INR-International Normal Ratio 1.1; PTT 31.5 sec (22.9-36.1); Prothrombin Time 14.7 sec (12.0-14.7)
[2023-03-03] MEDS: Micafungin 100 MG in Sodium Chloride 0.9% 100 ML IVPB SCH (10:53)
[2023-03-03] MEDS ORDERED: fentaNYL PF 100 MCG/2 ML SYRINGE ONE ×2 (10:56→14:15)
[2023-03-03] MEDS ORDERED: Bacitracin Zinc Ointment 30 gm TUBE ONE (11:01)
[2023-03-03] MEDS ORDERED: Thrombin 5000 UNITS/5 ML VIAL ONE ×2 (11:01→12:37)
[2023-03-03] MEDS: clonazePAM 1 MG TAB PO SCH ×2 (11:20→20:42)
[2023-03-03] MEDS: Folic Acid 1 MG TAB PER TUBE SCH (11:21)
[2023-03-03] MEDS: Ascorbic Acid 500 mg Chewable Tablet PO SCH ×2 (11:21→20:43)
[2023-03-03] MEDS: Saccharomyces boulardii 250 MG CAP PER TUBE SCH ×2 (11:21→20:42)
[2023-03-03] MEDS: Losartan 25 MG TAB PO SCH (11:21)
[2023-03-03] MEDS: Pantoprazole 40 MG VIAL IVP SCH (11:22)
[2023-03-03] MEDS: Thiamine 100 MG TAB PER TUBE SCH (11:22)
[2023-03-03] MEDS ORDERED: Rocuronium Bromide 10 MG/ML (10ML VIAL) ONE (11:38)
[2023-03-03] MEDS ORDERED: Phenylephrine 10 MG/ML VIAL ONE (11:38)
[2023-03-03] MEDS ORDERED: Vecuronium 10 MG VIAL ONE (11:38)
[2023-03-03] MEDS ORDERED: ePHEDrine Sulfate 50 MG/10 ML VIAL ONE (11:38)
[2023-03-03] MEDS ORDERED: Neomycin-Polymyxin 1 ML AMP ONE (12:31)
[2023-03-03] MEDS ORDERED: Vancomycin 1 GM VIAL ONE ×2 (13:00→13:18)
[2023-03-03] MEDS ORDERED: Midazolam HCl 2 mg/2 ml Vial ONE ×2 (14:11→14:13)
[2023-03-03 15:43] LABS: #Eosinphils 0.1 thou/uL (0.0-0.7); #Lymphocytes 2.1 thou/uL (1.20-3.40); #Monocytes 1.6 thou/uL (0.11-0.59); #Neutrophils 12.2 thou/uL (1.40-6.50); %Eosinophils 0.3 % (0.0-10.0); %Lymphocytes 12.8 % (21.0-51.0); %Monocytes 10.2 % (0.0-10.0); %Neutrophils 76.6 % (42.0-75.0); Hemoglobin 10.2 g/dL (14.0-18.0); Mean Corpuscular HGB CONC 31.2 g/dL (32.0-36.0); Mean Corpuscular Hemoglobin 30.4 pg (27.0-31.0); Mean Corpuscular Volume 97.6 fl (78.0-98.0); Mean Platelet Volume 9.5 fL (7.4-10.4); Platelet Count 169 10x3/uL (130-400); RBC Distribution Width 14.8 % (11.5-14.5); Red Blood Cell (RBC) Count 3.36 mill/uL (4.70-6.10)
[2023-03-03] MEDS: Labetalol HCl 100 MG/20 ML VIAL SLOW IVP PRN (18:40)
[2023-03-03] MEDS ORDERED: Losartan 25 MG TAB PO SCH (18:45)
[2023-03-03] MEDS ORDERED: Midazolam HCl 2 mg/2 ml Vial SLOW IVP PRN (20:53)
[2023-03-03] MEDS: Midazolam HCl 2 mg/2 ml Vial SLOW IVP PRN (21:07)
[2023-03-03] MEDS: VANCOMYCIN 1.25 GM/250 ML BAG 1.25 GM in Premix Bag 1 BAG IVPB SCH (22:00)
[2023-03-03 22:27] LABS: Vancomycin, Trough 24.1 ug/mL
[2023-03-03] MEDS ORDERED: Haloperidol Lactate 5 MG/ML VIAL ONE (22:56)
[2023-03-03] MEDS ORDERED: HOLD VANCOMYCIN FOR LEVEL >20 SLOW IVP SCH (23:00)
[2023-03-03] MEDS ORDERED: Vancomycin Dose by Levels Sliding Scale (Wt <71) FS SCH (23:00)
[2023-03-03] MEDS ORDERED: Haloperidol Lactate 5 MG/ML VIAL IM SCH (23:15)
[2023-03-04] MEDS: Midazolam HCl 2 mg/2 ml Vial SLOW IVP PRN ×2 (01:27→05:05)
[2023-03-04] MEDS ORDERED: carBAMazepine 200 MG TAB PO SCH ×2 (01:30→21:00)
[2023-03-04] MEDS: Albuterol 200 PUFF (6.7GM INHALER) INH SCH ×6 (02:09→21:53)
[2023-03-04] MEDS ORDERED: Melatonin 3 MG TAB PER TUBE SCH (02:15)
[2023-03-04] MEDS: Labetalol HCl 100 MG/20 ML VIAL SLOW IVP PRN (02:53)
[2023-03-04] MEDS: fentaNYL 50 mcg/mL 1 mL Vial SLOW IVP PRN (02:55)
[2023-03-04] MEDS: Acetaminophen 325 MG TAB PO SCH ×4 (02:57→21:45)
[2023-03-04] MEDS: hydrALAZINE 20 MG/ML VIAL SLOW IVP PRN (03:25)
[2023-03-04 04:11] LABS: #Eosinphils 0.1 thou/uL (0.0-0.7); #Lymphocytes 1.2 thou/uL (1.20-3.40); #Monocytes 0.9 thou/uL (0.11-0.59); #Neutrophils 11.7 thou/uL (1.40-6.50); %Basophils 0.1 % (0.0-1.0); %Eosinophils 0.9 % (0.0-10.0); %Lymphocytes 8.7 % (21.0-51.0); %Monocytes 6.4 % (0.0-10.0); Hemoglobin 8.3 g/dL (14.0-18.0); Mean Corpuscular HGB CONC 31.8 g/dL (32.0-36.0); Mean Corpuscular Hemoglobin 30.8 pg (27.0-31.0); Mean Corpuscular Volume 96.9 fl (78.0-98.0); Mean Platelet Volume 8.9 fL (7.4-10.4); Platelet Count 218 10x3/uL (130-400); RBC Distribution Width 14.7 % (11.5-14.5); Red Blood Cell (RBC) Count 2.68 mill/uL (4.70-6.10)
[2023-03-04] MEDS: Cefepime 2 GM in Sodium Chloride 0.9% 100 ML IVPB SCH ×3 (04:23→20:45)
[2023-03-04 04:29] LABS: Phosphorus 2.8 mg/dL (2.3-4.7)
[2023-03-04 04:33] LABS: Anion Gap 12 mmol/L (10-20); BUN (Urea Nitrogen) 24 mg/dL (8.9-20.6); Calc. Creatinine Clearance 132 mL/min (70-130); Calcium 8.6 mg/dL (7.8-10.44); Carbon Dioxide 31 mmol/L (22-29); Chloride 102 mmol/L (98-107); Estimated GFR 119; Glucose 81 mg/dL (70-105); Magnesium 1.9 mg/dL (1.6-2.6); Potassium 3.8 mmol/L (3.5-5.1); Sodium 141 mmol/L (136-145)
[2023-03-04] MEDS: cloNIDine 0.3 MG TAB PO SCH ×3 (05:04→23:15)
[2023-03-04] MEDS: Hydrocodone-Acetamin 15 ML UDCUP PER TUBE SCH ×4 (05:04→23:14)
[2023-03-04] MEDS: Metoprolol Tartrate 50 MG TAB PO SCH ×3 (05:04→21:19)
[2023-03-04] MEDS: niCARdipine 50 MG in Sodium Chloride 0.9% 250 ML 230 ML IV SCH ×3 (05:06→13:39)
[2023-03-04] MEDS ORDERED: Magnesium 2 GM/50 ML(in water) 2 GM in Premix Bag 1 BAG IVPB SCH (07:30)
[2023-03-04] MEDS ORDERED: Potassium Phosphate 30 MMOL, Magnesium Sulfate 2 GM in Sodium Chloride 0.9% 250 ML 250 ML IVPB SCH (08:00)
[2023-03-04] MEDS ORDERED: GASTROGRAFIN 30 ML BOT ONE (08:57)
[2023-03-04] MEDS: Micafungin 100 MG in Sodium Chloride 0.9% 100 ML IVPB SCH (09:52)
[2023-03-04] MEDS: methylPREDNISolone Sod Succ 40 MG VIAL IVP SCH ×2 (09:53→20:49)
[2023-03-04] MEDS: Pantoprazole 40 MG VIAL IVP SCH (09:56)
[2023-03-04] MEDS: Folic Acid 1 MG TAB PER TUBE SCH (09:58)
[2023-03-04] MEDS: clonazePAM 1 MG TAB PO SCH ×2 (09:58→20:56)
[2023-03-04] MEDS: Ascorbic Acid 500 mg Chewable Tablet PO SCH ×2 (09:58→20:55)
[2023-03-04] MEDS: Saccharomyces boulardii 250 MG CAP PER TUBE SCH ×2 (09:58→20:55)
[2023-03-04] MEDS: Aspirin Chewable 81 MG TAB PO SCH (09:58)
[2023-03-04] MEDS: Losartan 25 MG TAB PO SCH (09:58)
[2023-03-04] MEDS: Thiamine 100 MG TAB PER TUBE SCH (09:58)
[2023-03-04] MEDS: carBAMazepine 200 MG TAB PO SCH ×2 (12:28→18:13)
[2023-03-04] MEDS ORDERED: cloNIDine 0.2 MG TAB PO SCH (18:00)
[2023-03-04] MEDS: Melatonin 3 MG TAB PO SCH (20:55)
[2023-03-04] MEDS: Tamsulosin HCl 0.4 MG CAP PO SCH (20:56)
[2023-03-04 21:32] LABS: Vancomycin, Random 8.2 ug/mL (See Comment)
[2023-03-04] MEDS ORDERED: Vancomycin HCl 750 MG in Sodium Chloride 0.9% 250 ML 250 ML IVPB SCH (22:30)
[2023-03-05] MEDS: Albuterol 200 PUFF (6.7GM INHALER) INH SCH ×6 (01:56→21:51)
[2023-03-05] MEDS: Acetaminophen 325 MG TAB PO SCH ×4 (03:04→21:10)
[2023-03-05] MEDS: Cefepime 2 GM in Sodium Chloride 0.9% 100 ML IVPB SCH ×3 (03:05→21:06)
[2023-03-05 04:15] LABS: #Eosinphils 0.4 thou/uL (0.0-0.7); #Monocytes 0.4 thou/uL (0.11-0.59); #Neutrophils 10.4 thou/uL (1.40-6.50); %Basophils 0.1 % (0.0-1.0); %Eosinophils 3.1 % (0.0-10.0); %Monocytes 3.4 % (0.0-10.0); %Neutrophils 85.3 % (42.0-75.0); Hemoglobin 7.8 g/dL (14.0-18.0); Mean Corpuscular HGB CONC 32.7 g/dL (32.0-36.0); Mean Corpuscular Hemoglobin 31.4 pg (27.0-31.0); Mean Corpuscular Volume 96.1 fl (78.0-98.0); Mean Platelet Volume 8.2 fL (7.4-10.4); Platelet Count 211 10x3/uL (130-400); RBC Distribution Width 14.6 % (11.5-14.5); Red Blood Cell (RBC) Count 2.47 mill/uL (4.70-6.10); White Blood Cell (WBC) Count 12.2 10x3/uL (4.8-10.8)
[2023-03-05 04:33] LABS: Anion Gap 13 mmol/L (10-20); BUN (Urea Nitrogen) 20 mg/dL (8.9-20.6); Calc. Creatinine Clearance 116 mL/min (70-130); Calcium 8.5 mg/dL (7.8-10.44); Carbon Dioxide 28 mmol/L (22-29); Chloride 104 mmol/L (98-107); Estimated GFR 116; Glucose 110 mg/dL (70-105); Potassium 3.8 mmol/L (3.5-5.1); Sodium 141 mmol/L (136-145)
[2023-03-05 04:37] LABS: Phosphorus 3.5 mg/dL (2.3-4.7)
[2023-03-05] MEDS: Hydrocodone-Acetamin 15 ML UDCUP PER TUBE SCH ×4 (05:04→23:56)
[2023-03-05] MEDS: cloNIDine 0.3 MG TAB PO SCH (05:06)
[2023-03-05] MEDS: Metoprolol Tartrate 50 MG TAB PO SCH ×3 (05:07→21:12)
[2023-03-05] MEDS ORDERED: carBAMazepine 200 MG TAB PO SCH (08:00)
[2023-03-05] MEDS: Saccharomyces boulardii 250 MG CAP PER TUBE SCH ×2 (08:16→21:11)
[2023-03-05] MEDS: Ascorbic Acid 500 mg Chewable Tablet PO SCH ×2 (08:17→21:11)
[2023-03-05] MEDS: carBAMazepine 200 MG TAB PO SCH ×2 (08:17→16:14)
[2023-03-05] MEDS: Folic Acid 1 MG TAB PER TUBE SCH (08:17)
[2023-03-05] MEDS: methylPREDNISolone Sod Succ 40 MG VIAL IVP SCH ×3 (08:18→21:14)
[2023-03-05] MEDS: Aspirin Chewable 81 MG TAB PO SCH (08:18)
[2023-03-05] MEDS: clonazePAM 1 MG TAB PO SCH ×2 (08:18→21:13)
[2023-03-05] MEDS: Thiamine 100 MG TAB PER TUBE SCH (08:18)
[2023-03-05] MEDS: Pantoprazole 40 MG VIAL IVP SCH (08:19)
[2023-03-05] MEDS: Morphine 2 MG/ML VIAL SLOW IVP PRN (08:34)
[2023-03-05] MEDS: Vancomycin 1 GM in Premix Bag 1 BAG IVPB SCH (08:35)
[2023-03-05] MEDS: Micafungin 100 MG in Sodium Chloride 0.9% 100 ML IVPB SCH (09:42)
[2023-03-05] MEDS: Losartan 25 MG TAB PO SCH (09:43)
[2023-03-05] MEDS: cloNIDine 0.2 MG TAB PO SCH ×3 (12:48→23:56)
[2023-03-05] MEDS: Scopolamine 1.5 mg/72 hour Patch TD SCH (21:00)
[2023-03-05] MEDS: Melatonin 3 MG TAB PO SCH (21:12)
[2023-03-05] MEDS: Tamsulosin HCl 0.4 MG CAP PO SCH (21:13)
[2023-03-06] MEDS: Albuterol 200 PUFF (6.7GM INHALER) INH SCH ×6 (02:16→22:21)
[2023-03-06] MEDS: Acetaminophen 325 MG TAB PO SCH ×4 (03:11→21:10)
[2023-03-06] MEDS: Cefepime 2 GM in Sodium Chloride 0.9% 100 ML IVPB SCH ×3 (03:11→21:02)
[2023-03-06] MEDS: Metoprolol Tartrate 50 MG TAB PO SCH ×3 (05:00→21:08)
[2023-03-06] MEDS: Hydrocodone-Acetamin 15 ML UDCUP PER TUBE SCH ×3 (05:00→17:12)
[2023-03-06] MEDS: cloNIDine 0.2 MG TAB PO SCH ×3 (05:02→17:12)
[2023-03-06 05:06] LABS: #Eosinphils 0.5 thou/uL (0.0-0.7); #Monocytes 0.4 thou/uL (0.11-0.59); #Neutrophils 8.5 thou/uL (1.40-6.50); %Basophils 0.2 % (0.0-1.0); %Eosinophils 5.3 % (0.0-10.0); %Lymphocytes 9.8 % (21.0-51.0); %Monocytes 3.4 % (0.0-10.0); %Neutrophils 81.4 % (42.0-75.0); Hemoglobin 7.1 g/dL (14.0-18.0); Mean Corpuscular Hemoglobin 30.6 pg (27.0-31.0); Mean Corpuscular Volume 95.6 fl (78.0-98.0); Mean Platelet Volume 8.4 fL (7.4-10.4); Platelet Count 205 10x3/uL (130-400); RBC Distribution Width 14.5 % (11.5-14.5); Red Blood Cell (RBC) Count 2.31 mill/uL (4.70-6.10); White Blood Cell (WBC) Count 10.4 10x3/uL (4.8-10.8)
[2023-03-06 05:25] LABS: Anion Gap 12 mmol/L (10-20); BUN (Urea Nitrogen) 21 mg/dL (8.9-20.6); Calc. Creatinine Clearance 118 mL/min (70-130); Calcium 8.8 mg/dL (7.8-10.44); Carbon Dioxide 30 mmol/L (22-29); Chloride 103 mmol/L (98-107); Estimated GFR 116; Glucose 127 mg/dL (70-105); Magnesium 1.7 mg/dL (1.6-2.6); Potassium 3.4 mmol/L (3.5-5.1); Sodium 142 mmol/L (136-145)
[2023-03-06 05:33] LABS: Phosphorus 2.4 mg/dL (2.3-4.7)
[2023-03-06] MEDS ORDERED: Ferrous Sulfate 325 MG TAB PO SCH (08:00)
[2023-03-06] MEDS: Vancomycin 1 GM in Premix Bag 1 BAG IVPB SCH (08:05)
[2023-03-06] MEDS: carBAMazepine 200 MG TAB PO SCH ×2 (08:08→17:12)
[2023-03-06] MEDS: Losartan 25 MG TAB PO SCH (08:08)
[2023-03-06] MEDS: clonazePAM 1 MG TAB PO SCH ×2 (08:08→21:10)
[2023-03-06] MEDS: Thiamine 100 MG TAB PER TUBE SCH (08:08)
[2023-03-06] MEDS: Ascorbic Acid 500 mg Chewable Tablet PO SCH ×2 (08:08→21:10)
[2023-03-06] MEDS: Aspirin Chewable 81 MG TAB PO SCH (08:08)
[2023-03-06] MEDS: Saccharomyces boulardii 250 MG CAP PER TUBE SCH ×2 (08:08→21:10)
[2023-03-06] MEDS: Folic Acid 1 MG TAB PER TUBE SCH (08:08)
[2023-03-06] MEDS: methylPREDNISolone Sod Succ 40 MG VIAL IVP SCH ×2 (08:09→21:12)
[2023-03-06] MEDS: Pantoprazole 40 MG VIAL IVP SCH (08:09)
[2023-03-06] MEDS: Micafungin 100 MG in Sodium Chloride 0.9% 100 ML IVPB SCH (08:10)
[2023-03-06] MEDS ORDERED: Potassium Phosphate 30 MMOL, Magnesium Sulfate 4 GM in Sodium Chloride 0.9% 250 ML 250 ML IVPB SCH (08:15)
[2023-03-06] MEDS ORDERED: Ascorbic Acid 500 mg Chewable Tablet PO SCH (09:00)
[2023-03-06] MEDS ORDERED: Vancomycin HCl 250 MG in Sodium Chloride 0.9% 100 ML IVPB SCH (11:15)
[2023-03-06] MEDS: hydrALAZINE 20 MG/ML VIAL SLOW IVP PRN (12:20)
[2023-03-06] MEDS ORDERED: Benzonatate 100 MG CAP PO PRN (12:29)
[2023-03-06] MEDS ORDERED: Furosemide 40 MG/4 ML VIAL SLOW IVP SCH (12:45)
[2023-03-06] MEDS: guaiFENesin/Codeine 200 mg/20 mg 10 ml Cup PO PRN ×2 (13:02→21:08)
[2023-03-06] MEDS: Potassium Chloride 20 MEQ in Premix Bag 1 BAG IVPB SCH ×2 (13:02→14:24)
[2023-03-06] MEDS ORDERED: Potassium Chloride 20 MEQ TAB PO SCH (16:45)
[2023-03-06] MEDS: Melatonin 3 MG TAB PO SCH (21:09)
[2023-03-06] MEDS: Tamsulosin HCl 0.4 MG CAP PO SCH (21:10)
[2023-03-07] MEDS: Hydrocodone-Acetamin 15 ML UDCUP PER TUBE SCH ×2 (00:17→05:00)
[2023-03-07] MEDS: cloNIDine 0.2 MG TAB PO SCH ×4 (00:18→17:23)
[2023-03-07] MEDS: Albuterol 200 PUFF (6.7GM INHALER) INH SCH ×6 (01:49→22:42)
[2023-03-07] MEDS: Acetaminophen 325 MG TAB PO SCH ×4 (03:36→21:31)
[2023-03-07] MEDS: Cefepime 2 GM in Sodium Chloride 0.9% 100 ML IVPB SCH ×3 (03:37→19:53)
[2023-03-07] MEDS: hydrALAZINE 20 MG/ML VIAL SLOW IVP PRN (03:44)
[2023-03-07 04:04] LABS: #Monocytes 0.2 thou/uL (0.11-0.59); #Neutrophils 14.2 thou/uL (1.40-6.50); %Basophils 0.1 % (0.0-1.0); %Eosinophils 0.2 % (0.0-10.0); %Lymphocytes 6.5 % (21.0-51.0); %Monocytes 1.6 % (0.0-10.0); %Neutrophils 91.6 % (42.0-75.0); Hemoglobin 8.9 g/dL (14.0-18.0); Mean Corpuscular Hemoglobin 30.4 pg (27.0-31.0); Mean Corpuscular Volume 94.9 fl (78.0-98.0); Mean Platelet Volume 8.5 fL (7.4-10.4); Platelet Count 234 10x3/uL (130-400); RBC Distribution Width 14.8 % (11.5-14.5); Red Blood Cell (RBC) Count 2.93 mill/uL (4.70-6.10); White Blood Cell (WBC) Count 15.5 10x3/uL (4.8-10.8)
[2023-03-07 04:53] LABS: Magnesium 2.1 mg/dL (1.6-2.6)
[2023-03-07 04:56] LABS: Anion Gap 16 mmol/L (10-20); BUN (Urea Nitrogen) 22 mg/dL (8.9-20.6); Calc. Creatinine Clearance 112 mL/min (70-130); Calcium 9.4 mg/dL (7.8-10.44); Carbon Dioxide 29 mmol/L (22-29); Chloride 101 mmol/L (98-107); Estimated GFR 114; Glucose 128 mg/dL (70-105); Phosphorus 3.9 mg/dL (2.3-4.7); Potassium 4.7 mmol/L (3.5-5.1); Sodium 141 mmol/L (136-145)
[2023-03-07] MEDS: Metoprolol Tartrate 50 MG TAB PO SCH ×3 (05:02→21:30)
[2023-03-07] MEDS: Micafungin 100 MG in Sodium Chloride 0.9% 100 ML IVPB SCH (08:14)
[2023-03-07] MEDS: Losartan 25 MG TAB PO SCH (08:22)
[2023-03-07] MEDS: Pantoprazole 40 MG VIAL IVP SCH (08:22)
[2023-03-07] MEDS: Metamucil PACK PER TUBE SCH (08:22)
[2023-03-07] MEDS: methylPREDNISolone Sod Succ 40 MG VIAL IVP SCH (08:23)
[2023-03-07] MEDS: clonazePAM 1 MG TAB PO SCH ×2 (08:23→21:19)
[2023-03-07] MEDS: carBAMazepine 200 MG TAB PO SCH ×2 (08:23→16:27)
[2023-03-07] MEDS: Folic Acid 1 MG TAB PER TUBE SCH (08:23)
[2023-03-07] MEDS: Aspirin Chewable 81 MG TAB PO SCH (08:23)
[2023-03-07] MEDS: Ascorbic Acid 500 mg Chewable Tablet PO SCH ×2 (08:23→21:18)
[2023-03-07] MEDS: Saccharomyces boulardii 250 MG CAP PER TUBE SCH ×2 (08:24→21:21)
[2023-03-07] MEDS: Thiamine 100 MG TAB PER TUBE SCH (08:24)
[2023-03-07] MEDS ORDERED: VANCOMYCIN 1.25 GM/250 ML BAG 1.25 GM in Premix Bag 1 BAG IVPB SCH (09:00)
[2023-03-07] MEDS: HYDROcodone/Acetaminophen 10/325 mg Tablet PER TUBE SCH ×2 (12:18→17:24)
[2023-03-07] MEDS ORDERED: Furosemide 40 MG/4 ML VIAL SLOW IVP SCH (16:45)
[2023-03-07] MEDS: Nystatin 500,000 UNITS/5 ML UDCUP SSW SCH ×2 (17:24→21:20)
[2023-03-07] MEDS: Morphine 2 MG/ML VIAL SLOW IVP PRN (19:50)
[2023-03-07] MEDS: Melatonin 3 MG TAB PO SCH (21:20)
[2023-03-07] MEDS: Tamsulosin HCl 0.4 MG CAP PO SCH (21:21)
[2023-03-08] MEDS: cloNIDine 0.2 MG TAB PO SCH ×5 (00:58→23:53)
[2023-03-08] MEDS: HYDROcodone/Acetaminophen 10/325 mg Tablet PER TUBE SCH ×5 (00:58→23:55)
[2023-03-08] MEDS: Morphine 2 MG/ML VIAL SLOW IVP PRN (02:08)
[2023-03-08] MEDS: Labetalol HCl 100 MG/20 ML VIAL SLOW IVP PRN (02:09)
[2023-03-08] MEDS: Albuterol 200 PUFF (6.7GM INHALER) INH SCH ×6 (02:32→23:26)
[2023-03-08] MEDS: Acetaminophen 325 MG TAB PO SCH ×4 (03:02→20:50)
[2023-03-08] MEDS: Cefepime 2 GM in Sodium Chloride 0.9% 100 ML IVPB SCH ×2 (03:56→14:34)
[2023-03-08 04:00] LABS: #Eosinphils 0.7 thou/uL (0.0-0.7); #Lymphocytes 1.2 thou/uL (1.20-3.40); #Monocytes 0.7 thou/uL (0.11-0.59); #Neutrophils 16.9 thou/uL (1.40-6.50); %Basophils 0.1 % (0.0-1.0); %Eosinophils 3.4 % (0.0-10.0); %Lymphocytes 5.9 % (21.0-51.0); %Monocytes 3.6 % (0.0-10.0); %Neutrophils 87.1 % (42.0-75.0); Hemoglobin 8.9 g/dL (14.0-18.0); Mean Corpuscular HGB CONC 35.3 g/dL (32.0-36.0); Mean Corpuscular Hemoglobin 33.5 pg (27.0-31.0); Mean Corpuscular Volume 94.9 fl (78.0-98.0); Mean Platelet Volume 8.7 fL (7.4-10.4); Platelet Count 220 10x3/uL (130-400); RBC Distribution Width 14.5 % (11.5-14.5); Red Blood Cell (RBC) Count 2.66 mill/uL (4.70-6.10); White Blood Cell (WBC) Count 19.4 10x3/uL (4.8-10.8)
[2023-03-08 04:27] LABS: Anion Gap 15 mmol/L (10-20); BUN (Urea Nitrogen) 24 mg/dL (8.9-20.6); Calc. Creatinine Clearance 108 mL/min (70-130); Calcium 9.4 mg/dL (7.8-10.44); Carbon Dioxide 31 mmol/L (22-29); Chloride 99 mmol/L (98-107); Estimated GFR 113; Glucose 138 mg/dL (70-105); Magnesium 1.7 mg/dL (1.6-2.6); Potassium 3.5 mmol/L (3.5-5.1); Sodium 141 mmol/L (136-145)
[2023-03-08] MEDS: Metoprolol Tartrate 50 MG TAB PO SCH ×3 (05:35→20:58)
[2023-03-08] MEDS: guaiFENesin/Codeine 200 mg/20 mg 10 ml Cup PO PRN (05:35)
[2023-03-08 08:53] LABS: Vancomycin, Trough 11.8 ug/mL
[2023-03-08] MEDS: Pantoprazole 40 MG VIAL IVP SCH (09:53)
[2023-03-08] MEDS: Nystatin 500,000 UNITS/5 ML UDCUP SSW SCH ×4 (09:53→20:52)
[2023-03-08] MEDS: Metamucil PACK PER TUBE SCH (09:53)
[2023-03-08] MEDS: Losartan 25 MG TAB PO SCH (09:54)
[2023-03-08] MEDS: Ascorbic Acid 500 mg Chewable Tablet PO SCH ×2 (09:54→20:51)
[2023-03-08] MEDS: Saccharomyces boulardii 250 MG CAP PER TUBE SCH ×2 (09:54→20:51)
[2023-03-08] MEDS: clonazePAM 1 MG TAB PO SCH ×2 (09:54→20:51)
[2023-03-08] MEDS: Thiamine 100 MG TAB PER TUBE SCH (09:54)
[2023-03-08] MEDS: Aspirin Chewable 81 MG TAB PO SCH (09:54)
[2023-03-08] MEDS: Magnesium Oxide 400 MG TAB PO SCH ×2 (09:54→20:51)
[2023-03-08] MEDS: Folic Acid 1 MG TAB PER TUBE SCH (09:54)
[2023-03-08] MEDS: Vancomycin HCl 750 MG in Sodium Chloride 0.9% 250 ML 250 ML IVPB SCH ×2 (09:55→20:52)
[2023-03-08] MEDS: carBAMazepine 200 MG TAB PO SCH ×2 (09:55→17:41)
[2023-03-08] MEDS ORDERED: Meropenem 1 GM in Sodium Chloride 0.9% 100 ML IVPB SCH ×2 (15:00→22:00)
[2023-03-08] MEDS: Scopolamine 1.5 mg/72 hour Patch TD SCH (17:39)
[2023-03-08] MEDS: QUEtiapine 25 MG TAB PO SCH (20:51)
[2023-03-08] MEDS: Melatonin 3 MG TAB PO SCH (20:51)
[2023-03-08] MEDS: Tamsulosin HCl 0.4 MG CAP PO SCH (20:51)
[2023-03-08] MEDS: Meropenem 1 GM in Sodium Chloride 0.9% 100 ML IVPB SCH (23:53)
[2023-03-09] MEDS: Albuterol 200 PUFF (6.7GM INHALER) INH SCH ×5 (03:00→18:41)
[2023-03-09] MEDS: Acetaminophen 325 MG TAB PO SCH ×5 (05:05→21:25)
[2023-03-09] MEDS: Ondansetron PF 4 MG/2 ML Vial IVP PRN ×2 (05:43→13:53)
[2023-03-09] MEDS: cloNIDine 0.2 MG TAB PO SCH ×3 (05:48→17:41)
[2023-03-09] MEDS: HYDROcodone/Acetaminophen 10/325 mg Tablet PER TUBE SCH ×3 (05:48→17:39)
[2023-03-09] MEDS: Metoprolol Tartrate 50 MG TAB PO SCH ×3 (05:48→21:26)
[2023-03-09 06:09] LABS: #Eosinphils 0.8 thou/uL (0.0-0.7); #Lymphocytes 1.4 thou/uL (1.20-3.40); #Monocytes 0.6 thou/uL (0.11-0.59); #Neutrophils 8.9 thou/uL (1.40-6.50); %Basophils 0.1 % (0.0-1.0); %Eosinophils 6.5 % (0.0-10.0); %Lymphocytes 12.1 % (21.0-51.0); %Monocytes 5.4 % (0.0-10.0); %Neutrophils 75.8 % (42.0-75.0); Hemoglobin 8.7 g/dL (14.0-18.0); Mean Corpuscular HGB CONC 32.6 g/dL (32.0-36.0); Mean Corpuscular Hemoglobin 30.9 pg (27.0-31.0); Mean Corpuscular Volume 94.8 fl (78.0-98.0); Mean Platelet Volume 8.3 fL (7.4-10.4); Platelet Count 257 10x3/uL (130-400); RBC Distribution Width 14.5 % (11.5-14.5); Red Blood Cell (RBC) Count 2.81 mill/uL (4.70-6.10); White Blood Cell (WBC) Count 11.8 10x3/uL (4.8-10.8)
[2023-03-09 06:36] LABS: Anion Gap 13 mmol/L (10-20); BUN (Urea Nitrogen) 23 mg/dL (8.9-20.6); Calc. Creatinine Clearance 105 mL/min (70-130); Calcium 9.2 mg/dL (7.8-10.44); Carbon Dioxide 32 mmol/L (22-29); Chloride 102 mmol/L (98-107); Estimated GFR 114; Glucose 93 mg/dL (70-105); Magnesium 2.2 mg/dL (1.6-2.6); Phosphorus 3.3 mg/dL (2.3-4.7); Potassium 3.5 mmol/L (3.5-5.1); Sodium 143 mmol/L (136-145)
[2023-03-09] MEDS: Meropenem 1 GM in Sodium Chloride 0.9% 100 ML IVPB SCH ×3 (07:28→22:02)
[2023-03-09] MEDS: Labetalol HCl 100 MG/20 ML VIAL SLOW IVP PRN ×2 (09:25→11:11)
[2023-03-09] MEDS ORDERED: Metoclopramide 10 MG/10 ML UDCUP PO SCH (10:30)
[2023-03-09] MEDS: Vancomycin HCl 750 MG in Sodium Chloride 0.9% 250 ML 250 ML IVPB SCH ×2 (10:41→21:23)
[2023-03-09] MEDS: Pantoprazole 40 MG VIAL IVP SCH (10:47)
[2023-03-09] MEDS: Nystatin 500,000 UNITS/5 ML UDCUP SSW SCH ×6 (10:54→21:25)
[2023-03-09] MEDS: Metamucil PACK PER TUBE SCH (10:55)
[2023-03-09] MEDS: Saccharomyces boulardii 250 MG CAP PER TUBE SCH ×2 (10:55→21:26)
[2023-03-09] MEDS: Thiamine 100 MG TAB PER TUBE SCH (10:56)
[2023-03-09] MEDS: carBAMazepine 200 MG TAB PO SCH ×3 (10:56→17:41)
[2023-03-09] MEDS: Aspirin Chewable 81 MG TAB PO SCH (10:56)
[2023-03-09] MEDS: Folic Acid 1 MG TAB PER TUBE SCH (10:56)
[2023-03-09] MEDS: Ascorbic Acid 500 mg Chewable Tablet PO SCH ×3 (10:56→21:26)
[2023-03-09] MEDS: Magnesium Oxide 400 MG TAB PO SCH ×3 (10:56→21:25)
[2023-03-09] MEDS: clonazePAM 1 MG TAB PO SCH ×3 (10:56→21:26)
[2023-03-09] MEDS: Losartan 25 MG TAB PO SCH (11:01)
[2023-03-09] MEDS: Metoclopramide 10 MG/10 ML UDCUP PO SCH ×2 (16:02→21:24)
[2023-03-09 20:24] LABS: Vancomycin, Trough 19.3 ug/mL
[2023-03-09] MEDS: Melatonin 3 MG TAB PO SCH (21:25)
[2023-03-09] MEDS: Tamsulosin HCl 0.4 MG CAP PO SCH (21:26)
[2023-03-09] MEDS: QUEtiapine 25 MG TAB PO SCH (21:26)
[2023-03-10] MEDS: Albuterol 200 PUFF (6.7GM INHALER) INH SCH ×7 (00:08→23:25)
[2023-03-10] MEDS: HYDROcodone/Acetaminophen 10/325 mg Tablet PER TUBE SCH ×4 (00:11→16:59)
[2023-03-10] MEDS: cloNIDine 0.2 MG TAB PO SCH ×4 (00:12→16:59)
[2023-03-10] MEDS: Acetaminophen 325 MG TAB PO SCH ×4 (04:04→20:10)
[2023-03-10] MEDS: guaiFENesin/Codeine 200 mg/20 mg 10 ml Cup PO PRN (04:46)
[2023-03-10] MEDS: Metoprolol Tartrate 50 MG TAB PO SCH ×3 (05:35→21:56)
[2023-03-10] MEDS: Metoclopramide 10 MG/10 ML UDCUP PO SCH ×3 (05:36→21:56)
[2023-03-10] MEDS: Meropenem 1 GM in Sodium Chloride 0.9% 100 ML IVPB SCH ×3 (07:35→22:25)
[2023-03-10] MEDS: carBAMazepine 200 MG TAB PO SCH ×2 (09:51→16:59)
[2023-03-10] MEDS: Folic Acid 1 MG TAB PER TUBE SCH (09:51)
[2023-03-10] MEDS: Ascorbic Acid 500 mg Chewable Tablet PO SCH ×2 (09:52→20:50)
[2023-03-10] MEDS: Magnesium Oxide 400 MG TAB PO SCH ×2 (09:53→20:10)
[2023-03-10] MEDS: Losartan 25 MG TAB PO SCH (09:53)
[2023-03-10] MEDS: Saccharomyces boulardii 250 MG CAP PER TUBE SCH ×2 (09:53→20:09)
[2023-03-10] MEDS: Thiamine 100 MG TAB PER TUBE SCH (09:53)
[2023-03-10] MEDS: clonazePAM 1 MG TAB PO SCH ×2 (09:53→20:10)
[2023-03-10] MEDS: Nystatin 500,000 UNITS/5 ML UDCUP SSW SCH ×4 (09:53→20:10)
[2023-03-10] MEDS: Aspirin Chewable 81 MG TAB PO SCH (09:53)
[2023-03-10] MEDS: Metamucil PACK PER TUBE SCH (09:54)
[2023-03-10] MEDS: Lansoprazole 15 MG/5 ML (BATCHED)UDCUP PER TUBE SCH (09:58)
[2023-03-10] MEDS: Ondansetron PF 4 MG/2 ML Vial IVP PRN (09:59)
[2023-03-10 10:36] VITALS: BMI 22.3
[2023-03-10] MEDS: Vancomycin HCl 750 MG in Sodium Chloride 0.9% 250 ML 250 ML IVPB SCH ×2 (11:35→20:43)
[2023-03-10] MEDS: Melatonin 3 MG TAB PO SCH (20:09)
[2023-03-10] MEDS: QUEtiapine 25 MG TAB PO SCH (20:09)
[2023-03-10] MEDS: Tamsulosin HCl 0.4 MG CAP PO SCH (20:50)
[2023-03-11] MEDS: HYDROcodone/Acetaminophen 10/325 mg Tablet PER TUBE SCH ×4 (00:14→17:33)
[2023-03-11] MEDS: cloNIDine 0.2 MG TAB PO SCH ×4 (00:14→17:34)
[2023-03-11] MEDS: Acetaminophen 325 MG TAB PO SCH ×4 (02:58→21:42)
[2023-03-11] MEDS: hydrALAZINE 20 MG/ML VIAL SLOW IVP PRN (03:34)
[2023-03-11] MEDS: Metoprolol Tartrate 50 MG TAB PO SCH ×3 (05:16→21:42)
[2023-03-11] MEDS: Metoclopramide 10 MG/10 ML UDCUP PO SCH ×3 (05:16→21:43)
[2023-03-11] MEDS: Meropenem 1 GM in Sodium Chloride 0.9% 100 ML IVPB SCH ×2 (06:11→15:47)
[2023-03-11] MEDS: Albuterol 200 PUFF (6.7GM INHALER) INH SCH ×3 (07:09→11:01)
[2023-03-11 08:52] LABS: Vancomycin, Trough 18.7 ug/mL
[2023-03-11] MEDS ORDERED: Aspirin 325 mg Enteric Coated Tablet PO SCH (09:00)
[2023-03-11] MEDS: Magnesium Oxide 400 MG TAB PO SCH ×2 (09:03→21:43)
[2023-03-11] MEDS: Nystatin 500,000 UNITS/5 ML UDCUP SSW SCH ×4 (09:08→21:43)
[2023-03-11] MEDS: Lansoprazole 15 MG/5 ML (BATCHED)UDCUP PER TUBE SCH (09:08)
[2023-03-11] MEDS: Thiamine 100 MG TAB PER TUBE SCH (09:09)
[2023-03-11] MEDS: carBAMazepine 200 MG TAB PO SCH ×2 (09:09→17:34)
[2023-03-11] MEDS: Losartan 25 MG TAB PO SCH (09:09)
[2023-03-11] MEDS: Saccharomyces boulardii 250 MG CAP PER TUBE SCH ×2 (09:10→21:43)
[2023-03-11] MEDS: Ascorbic Acid 500 mg Chewable Tablet PO SCH ×2 (09:10→21:42)
[2023-03-11] MEDS: clonazePAM 1 MG TAB PO SCH ×2 (09:10→21:42)
[2023-03-11] MEDS: Folic Acid 1 MG TAB PER TUBE SCH (09:11)
[2023-03-11] MEDS: Metamucil PACK PER TUBE SCH (09:12)
[2023-03-11] MEDS: Vancomycin 1 GM in Premix Bag 1 BAG IVPB SCH ×2 (09:38→22:11)
[2023-03-11] MEDS: Vancomycin HCl 750 MG in Sodium Chloride 0.9% 250 ML 250 ML IVPB SCH (10:47)
[2023-03-11] MEDS ORDERED: Albuterol 200 PUFF (6.7GM INHALER) INH PRN (12:05)
[2023-03-11] MEDS: Scopolamine 1.5 mg/72 hour Patch TD SCH (17:34)
[2023-03-11] MEDS: QUEtiapine 25 MG TAB PO SCH (21:42)
[2023-03-11] MEDS: Melatonin 3 MG TAB PO SCH (21:42)
[2023-03-11] MEDS: Tamsulosin HCl 0.4 MG CAP PO SCH (21:42)
[2023-03-11] MEDS: Ondansetron PF 4 MG/2 ML Vial IVP PRN (22:02)
[2023-03-12] MEDS: cloNIDine 0.2 MG TAB PO SCH ×5 (00:14→22:18)
[2023-03-12] MEDS: Meropenem 1 GM in Sodium Chloride 0.9% 100 ML IVPB SCH ×3 (00:15→15:29)
[2023-03-12] MEDS: HYDROcodone/Acetaminophen 10/325 mg Tablet PER TUBE SCH ×3 (00:15→11:28)
[2023-03-12] MEDS: hydrALAZINE 20 MG/ML VIAL SLOW IVP PRN (03:56)
[2023-03-12] MEDS: Acetaminophen 325 MG TAB PO SCH ×2 (03:56→09:57)
[2023-03-12] MEDS: Ondansetron PF 4 MG/2 ML Vial IVP PRN (04:20)
[2023-03-12] MEDS: Metoclopramide 10 MG/10 ML UDCUP PO SCH ×3 (06:12→22:15)
[2023-03-12] MEDS: Metoprolol Tartrate 50 MG TAB PO SCH ×3 (06:12→22:14)
[2023-03-12] MEDS: Vancomycin 1 GM in Premix Bag 1 BAG IVPB SCH ×2 (09:52→22:16)
[2023-03-12] MEDS: carBAMazepine 200 MG TAB PO SCH ×2 (09:52→16:48)
[2023-03-12] MEDS: Losartan 25 MG TAB PO SCH (09:52)
[2023-03-12] MEDS: Lansoprazole 15 MG/5 ML (BATCHED)UDCUP PER TUBE SCH ×2 (09:54→09:55)
[2023-03-12] MEDS: Metamucil PACK PER TUBE SCH (09:54)
[2023-03-12] MEDS: Nystatin 500,000 UNITS/5 ML UDCUP SSW SCH ×4 (09:55→22:15)
[2023-03-12] MEDS: Saccharomyces boulardii 250 MG CAP PER TUBE SCH ×2 (09:55→22:15)
[2023-03-12] MEDS: Thiamine 100 MG TAB PER TUBE SCH (09:56)
[2023-03-12] MEDS: Ascorbic Acid 500 mg Chewable Tablet PO SCH ×2 (09:56→22:15)
[2023-03-12] MEDS: clonazePAM 1 MG TAB PO SCH ×2 (09:56→22:14)
[2023-03-12] MEDS: Aspirin 325 MG TAB PER TUBE SCH (09:56)
[2023-03-12] MEDS: Folic Acid 1 MG TAB PER TUBE SCH (09:57)
[2023-03-12] MEDS: Magnesium Oxide 400 MG TAB PO SCH ×2 (09:58→22:15)
[2023-03-12] MEDS ORDERED: diphenhydrAMINE 50 MG/ML VIAL IVP SCH (11:15)
[2023-03-12] MEDS: Labetalol HCl 100 MG/20 ML VIAL SLOW IVP PRN (16:51)
[2023-03-12] MEDS: Melatonin 3 MG TAB PO SCH (22:14)
[2023-03-12] MEDS: QUEtiapine 25 MG TAB PO SCH (22:14)
[2023-03-12] MEDS: Tamsulosin HCl 0.4 MG CAP PO SCH (22:14)
[2023-03-12 22:39] LABS: Vancomycin, Trough 21.3 ug/mL
[2023-03-13] MEDS: Meropenem 1 GM in Sodium Chloride 0.9% 100 ML IVPB SCH ×3 (01:00→16:20)
[2023-03-13] MEDS: cloNIDine 0.2 MG TAB PO SCH ×3 (05:14→16:20)
[2023-03-13] MEDS: Metoprolol Tartrate 50 MG TAB PO SCH ×3 (05:14→21:39)
[2023-03-13] MEDS: Metoclopramide 10 MG/10 ML UDCUP PO SCH ×3 (05:15→21:35)
[2023-03-13] MEDS: Acetaminophen 500 MG TAB PO PRN ×2 (05:35→21:55)
[2023-03-13 07:22] LABS: #Eosinphils 0.4 thou/uL (0.0-0.7); #Lymphocytes 1.8 thou/uL (1.20-3.40); #Monocytes 0.8 thou/uL (0.11-0.59); #Neutrophils 6.3 thou/uL (1.40-6.50); %Basophils 0.4 % (0.0-1.0); %Eosinophils 4.7 % (0.0-10.0); %Lymphocytes 19.5 % (21.0-51.0); %Monocytes 8.3 % (0.0-10.0); %Neutrophils 67.1 % (42.0-75.0); Hemoglobin 8.1 g/dL (14.0-18.0); Mean Corpuscular HGB CONC 33.4 g/dL (32.0-36.0); Mean Corpuscular Hemoglobin 31.1 pg (27.0-31.0); Mean Corpuscular Volume 93.3 fl (78.0-98.0); Mean Platelet Volume 7.9 fL (7.4-10.4); Platelet Count 306 10x3/uL (130-400); RBC Distribution Width 13.9 % (11.5-14.5); White Blood Cell (WBC) Count 9.4 10x3/uL (4.8-10.8)
[2023-03-13 07:48] LABS: Anion Gap 13 mmol/L (10-20); BUN (Urea Nitrogen) 13 mg/dL (8.9-20.6); Calc. Creatinine Clearance 102 mL/min (70-130); Calcium 8.9 mg/dL (7.8-10.44); Carbon Dioxide 30 mmol/L (22-29); Chloride 102 mmol/L (98-107); Estimated GFR 113; Glucose 92 mg/dL (70-105); Magnesium 1.6 mg/dL (1.6-2.6); Phosphorus 3.4 mg/dL (2.3-4.7); Potassium 3.2 mmol/L (3.5-5.1); Sodium 142 mmol/L (136-145)
[2023-03-13] MEDS ORDERED: Potassium Chloride 40 MEQ, Magnesium Sulfate 2 GM in Sodium Chloride 0.9% 250 ML 250 ML IVPB SCH (09:15)
[2023-03-13] MEDS: Vancomycin 1 GM in Premix Bag 1 BAG IVPB SCH ×2 (09:42→21:41)
[2023-03-13] MEDS: Nystatin 500,000 UNITS/5 ML UDCUP SSW SCH ×4 (09:46→21:41)
[2023-03-13] MEDS: Lansoprazole 15 MG/5 ML (BATCHED)UDCUP PER TUBE SCH (09:46)
[2023-03-13] MEDS: Magnesium Oxide 400 MG TAB PO SCH ×2 (09:46→21:40)
[2023-03-13] MEDS: Metamucil PACK PER TUBE SCH (09:46)
[2023-03-13] MEDS: Aspirin 325 MG TAB PER TUBE SCH (09:46)
[2023-03-13] MEDS: Ascorbic Acid 500 mg Chewable Tablet PO SCH ×2 (09:47→21:40)
[2023-03-13] MEDS: clonazePAM 1 MG TAB PO SCH ×2 (09:47→22:27)
[2023-03-13] MEDS: carBAMazepine 200 MG TAB PO SCH ×2 (09:47→16:25)
[2023-03-13] MEDS: Folic Acid 1 MG TAB PER TUBE SCH (09:47)
[2023-03-13] MEDS: Losartan 25 MG TAB PO SCH (09:47)
[2023-03-13] MEDS: Thiamine 100 MG TAB PER TUBE SCH (09:48)
[2023-03-13] MEDS: Saccharomyces boulardii 250 MG CAP PER TUBE SCH ×2 (09:48→21:39)
[2023-03-13] MEDS: QUEtiapine 25 MG TAB PO SCH (21:35)
[2023-03-13] MEDS: Melatonin 3 MG TAB PO SCH (21:39)
[2023-03-13] MEDS: Tamsulosin HCl 0.4 MG CAP PO SCH (21:40)
[2023-03-14] MEDS: Meropenem 1 GM in Sodium Chloride 0.9% 100 ML IVPB SCH ×3 (00:59→17:41)
[2023-03-14] MEDS: cloNIDine 0.2 MG TAB PO SCH ×5 (00:59→23:29)
[2023-03-14] MEDS ORDERED: Acetaminophen/Codeine 30-300mg Tablet PO SCH (03:30)
[2023-03-14] MEDS: Metoclopramide 10 MG/10 ML UDCUP PO SCH ×3 (05:35→22:09)
[2023-03-14] MEDS: Metoprolol Tartrate 50 MG TAB PO SCH ×3 (05:35→22:09)
[2023-03-14] MEDS: Acetaminophen 500 MG TAB PO PRN (09:10)
[2023-03-14] MEDS: Metamucil PACK PER TUBE SCH (09:11)
[2023-03-14] MEDS: Vancomycin 1 GM in Premix Bag 1 BAG IVPB SCH ×2 (09:11→23:27)
[2023-03-14] MEDS: Losartan 25 MG TAB PO SCH (09:11)
[2023-03-14] MEDS: Saccharomyces boulardii 250 MG CAP PER TUBE SCH ×3 (09:12→22:10)
[2023-03-14] MEDS: Aspirin 325 MG TAB PER TUBE SCH (09:12)
[2023-03-14] MEDS: Ascorbic Acid 500 mg Chewable Tablet PO SCH ×3 (09:12→22:10)
[2023-03-14] MEDS: carBAMazepine 200 MG TAB PO SCH ×2 (09:12→17:42)
[2023-03-14] MEDS: Folic Acid 1 MG TAB PER TUBE SCH (09:12)
[2023-03-14] MEDS: Magnesium Oxide 400 MG TAB PO SCH ×2 (09:12→20:34)
[2023-03-14] MEDS: Thiamine 100 MG TAB PER TUBE SCH (09:12)
[2023-03-14] MEDS: Nystatin 500,000 UNITS/5 ML UDCUP SSW SCH ×5 (09:13→22:10)
[2023-03-14] MEDS: guaiFENesin/Codeine 200 mg/20 mg 10 ml Cup PO PRN (09:31)
[2023-03-14] MEDS: Scopolamine 1.5 mg/72 hour Patch TD SCH (17:42)
[2023-03-14] MEDS: Tamsulosin HCl 0.4 MG CAP PO SCH ×2 (20:34→22:10)
[2023-03-14] MEDS: QUEtiapine 25 MG TAB PO SCH (20:34)
[2023-03-14] MEDS: Melatonin 3 MG TAB PO SCH (20:34)
[2023-03-14] MEDS: Ondansetron PF 4 MG/2 ML Vial IVP PRN (20:48)
[2023-03-14 21:50] LABS: Vancomycin, Trough 24.4 ug/mL
[2023-03-15] MEDS: Meropenem 1 GM in Sodium Chloride 0.9% 100 ML IVPB SCH ×4 (01:02→23:20)
[2023-03-15] MEDS: Ondansetron PF 4 MG/2 ML Vial IVP PRN ×2 (04:05→17:24)
[2023-03-15] MEDS: Labetalol HCl 100 MG/20 ML VIAL SLOW IVP PRN (04:08)
[2023-03-15] MEDS: Metoprolol Tartrate 50 MG TAB PO SCH (05:25)
[2023-03-15] MEDS: Metoclopramide 10 MG/10 ML UDCUP PO SCH ×3 (05:25→21:29)
[2023-03-15] MEDS: cloNIDine 0.2 MG TAB PO SCH ×3 (05:25→17:25)
[2023-03-15] MEDS: Aspirin 325 MG TAB PER TUBE SCH (10:06)
[2023-03-15] MEDS: Vancomycin 1 GM in Premix Bag 1 BAG IVPB SCH ×2 (10:06→21:30)
[2023-03-15] MEDS: carBAMazepine 200 MG TAB PO SCH ×2 (10:06→17:24)
[2023-03-15] MEDS: Ascorbic Acid 500 mg Chewable Tablet PO SCH ×2 (10:06→20:51)
[2023-03-15] MEDS: Losartan 25 MG TAB PO SCH (10:06)
[2023-03-15] MEDS: Lansoprazole 15 MG/5 ML (BATCHED)UDCUP PER TUBE SCH (10:07)
[2023-03-15] MEDS: Metamucil PACK PER TUBE SCH (10:07)
[2023-03-15] MEDS: Nystatin 500,000 UNITS/5 ML UDCUP SSW SCH ×5 (10:07→21:07)
[2023-03-15] MEDS: Folic Acid 1 MG TAB PER TUBE SCH (10:07)
[2023-03-15] MEDS: Magnesium Oxide 400 MG TAB PO SCH ×2 (10:07→20:51)
[2023-03-15] MEDS: Saccharomyces boulardii 250 MG CAP PER TUBE SCH ×2 (10:08→20:51)
[2023-03-15] MEDS: Thiamine 100 MG TAB PER TUBE SCH (10:08)
[2023-03-15] MEDS: Acetaminophen 500 MG TAB PO PRN (14:12)
[2023-03-15] MEDS: hydrALAZINE 20 MG/ML VIAL SLOW IVP PRN (15:45)
[2023-03-15] MEDS: Melatonin 3 MG TAB PO SCH (20:50)
[2023-03-15] MEDS: Tamsulosin HCl 0.4 MG CAP PO SCH (20:51)
[2023-03-15] MEDS: QUEtiapine 25 MG TAB PO SCH (20:51)
[2023-03-15] MEDS: Metoprolol Tartrate 100 MG TAB PO SCH (20:51)
[2023-03-15] MEDS: Calcium Carbonate 500 MG ChewTAB PO PRN (22:48)
[2023-03-16] MEDS: cloNIDine 0.2 MG TAB PO SCH ×5 (00:36→23:46)
[2023-03-16] MEDS ORDERED: Haloperidol Lactate 5 MG/ML VIAL IM SCH (01:30)
[2023-03-16] MEDS ORDERED: Lorazepam 2 MG/ML VIAL IM SCH (01:30)
[2023-03-16] MEDS ORDERED: diphenhydrAMINE 50 MG/ML VIAL IM SCH ×2 (01:30→21:15)
[2023-03-16] MEDS: Metoclopramide 10 MG/10 ML UDCUP PO SCH ×3 (05:59→20:34)
[2023-03-16] MEDS: Meropenem 1 GM in Sodium Chloride 0.9% 100 ML IVPB SCH (06:02)
[2023-03-16 06:45] LABS: Anion Gap 14 mmol/L (10-20); BUN (Urea Nitrogen) 14 mg/dL (8.9-20.6); Calc. Creatinine Clearance 0 mL/min (70-130); Calcium 9.1 mg/dL (7.8-10.44); Carbon Dioxide 29 mmol/L (22-29); Chloride 101 mmol/L (98-107); Estimated GFR 110; Glucose 76 mg/dL (70-105); Potassium 3.4 mmol/L (3.5-5.1); Sodium 141 mmol/L (136-145)
[2023-03-16] MEDS: Metoprolol Tartrate 100 MG TAB PO SCH ×2 (09:09→20:35)
[2023-03-16] MEDS: Losartan 25 MG TAB PO SCH (09:09)
[2023-03-16] MEDS: Vancomycin 1 GM in Premix Bag 1 BAG IVPB SCH (09:09)
[2023-03-16] MEDS: carBAMazepine 200 MG TAB PO SCH ×2 (09:09→17:46)
[2023-03-16] MEDS: Ondansetron PF 4 MG/2 ML Vial IVP PRN (09:09)
[2023-03-16] MEDS: Ascorbic Acid 500 mg Chewable Tablet PO SCH ×2 (09:10→20:35)
[2023-03-16] MEDS: Lansoprazole 15 MG/5 ML (BATCHED)UDCUP PER TUBE SCH (09:10)
[2023-03-16] MEDS: Magnesium Oxide 400 MG TAB PO SCH ×2 (09:10→20:35)
[2023-03-16] MEDS: Folic Acid 1 MG TAB PER TUBE SCH (09:10)
[2023-03-16] MEDS: Nystatin 500,000 UNITS/5 ML UDCUP SSW SCH ×5 (09:10→20:37)
[2023-03-16] MEDS: Aspirin 325 MG TAB PER TUBE SCH (09:10)
[2023-03-16] MEDS: Saccharomyces boulardii 250 MG CAP PER TUBE SCH ×2 (09:11→20:35)
[2023-03-16] MEDS: Metamucil PACK PER TUBE SCH (09:11)
[2023-03-16] MEDS: Thiamine 100 MG TAB PER TUBE SCH (09:11)
[2023-03-16] MEDS: Acetaminophen 500 MG TAB PO PRN ×2 (09:12→23:45)
[2023-03-16 10:42] LABS: Vancomycin, Trough 33.6 ug/mL
[2023-03-16] MEDS: Ciprofloxacin 500 MG TAB PER TUBE SCH (20:35)
[2023-03-16] MEDS: Melatonin 3 MG TAB PO SCH (20:35)
[2023-03-16] MEDS: Tamsulosin HCl 0.4 MG CAP PO SCH (20:35)
[2023-03-16] MEDS: QUEtiapine 25 MG TAB PO SCH (20:35)
[2023-03-17] MEDS: Ondansetron PF 4 MG/2 ML Vial IVP PRN ×2 (04:13→12:16)
[2023-03-17] MEDS: cloNIDine 0.2 MG TAB PO SCH ×3 (05:59→17:55)
[2023-03-17] MEDS: Ciprofloxacin 500 MG TAB PER TUBE SCH ×2 (05:59→21:00)
[2023-03-17] MEDS: Metoclopramide 10 MG/10 ML UDCUP PO SCH ×3 (06:00→21:01)
[2023-03-17] MEDS: Nystatin 500,000 UNITS/5 ML UDCUP SSW SCH ×4 (09:19→21:20)
[2023-03-17] MEDS: Metamucil PACK PER TUBE SCH (09:19)
[2023-03-17] MEDS: Aspirin 325 MG TAB PER TUBE SCH (09:19)
[2023-03-17] MEDS: Thiamine 100 MG TAB PER TUBE SCH (09:19)
[2023-03-17] MEDS: Magnesium Oxide 400 MG TAB PO SCH ×2 (09:19→21:00)
[2023-03-17] MEDS: Saccharomyces boulardii 250 MG CAP PER TUBE SCH ×2 (09:20→20:59)
[2023-03-17] MEDS: carBAMazepine 200 MG TAB PO SCH ×2 (09:20→17:54)
[2023-03-17] MEDS: Metoprolol Tartrate 100 MG TAB PO SCH ×2 (09:20→21:00)
[2023-03-17] MEDS: Losartan 25 MG TAB PO SCH (09:20)
[2023-03-17] MEDS: Lansoprazole 15 MG/5 ML (BATCHED)UDCUP PER TUBE SCH (09:20)
[2023-03-17] MEDS: Folic Acid 1 MG TAB PER TUBE SCH (09:20)
[2023-03-17] MEDS: Ascorbic Acid 500 mg Chewable Tablet PO SCH ×2 (09:20→21:00)
[2023-03-17] MEDS ORDERED: Scopolamine 1.5 mg/72 hour Patch TD SCH (15:30)
[2023-03-17] MEDS: Acetaminophen 500 MG TAB PO PRN (20:58)
[2023-03-17] MEDS: Melatonin 3 MG TAB PO SCH (20:59)
[2023-03-17] MEDS: Tamsulosin HCl 0.4 MG CAP PO SCH (20:59)
[2023-03-17] MEDS: QUEtiapine 25 MG TAB PO SCH (21:00)
[2023-03-18] MEDS: cloNIDine 0.1 MG TAB PO SCH ×3 (00:50→12:32)
[2023-03-18] MEDS ORDERED: Ondansetron ODT 4 MG TAB PO PRN (01:20)
[2023-03-18] MEDS ORDERED: Ondansetron ORAL SOLN. 4 MG/5 ML UDCUP PER TUBE PRN (01:52)
[2023-03-18] MEDS: Calcium Carbonate 500 MG ChewTAB PO PRN (02:49)
[2023-03-18] MEDS: guaiFENesin/Codeine 200 mg/20 mg 10 ml Cup PO PRN (03:43)
[2023-03-18] MEDS: Ciprofloxacin 500 MG TAB PER TUBE SCH ×2 (05:27→20:07)
[2023-03-18] MEDS: Metoclopramide 10 MG/10 ML UDCUP PO SCH ×3 (05:28→20:06)
[2023-03-18] MEDS: Acetaminophen 500 MG TAB PO PRN (05:28)
[2023-03-18] MEDS: Ascorbic Acid 500 mg Chewable Tablet PO SCH ×2 (09:20→20:07)
[2023-03-18] MEDS: Metoprolol Tartrate 100 MG TAB PO SCH ×2 (09:20→20:07)
[2023-03-18] MEDS: Losartan 25 MG TAB PO SCH (09:20)
[2023-03-18] MEDS: Aspirin 325 MG TAB PER TUBE SCH (09:20)
[2023-03-18] MEDS: Magnesium Oxide 400 MG TAB PO SCH ×2 (09:20→20:07)
[2023-03-18] MEDS: carBAMazepine 200 MG TAB PO SCH ×2 (09:20→18:20)
[2023-03-18] MEDS: Nystatin 500,000 UNITS/5 ML UDCUP SSW SCH ×4 (09:20→20:07)
[2023-03-18] MEDS: Folic Acid 1 MG TAB PER TUBE SCH (09:20)
[2023-03-18] MEDS: Saccharomyces boulardii 250 MG CAP PER TUBE SCH ×2 (09:20→20:07)
[2023-03-18] MEDS: Metamucil PACK PER TUBE SCH (09:21)
[2023-03-18] MEDS: Thiamine 100 MG TAB PER TUBE SCH (09:21)
[2023-03-18] MEDS: Lansoprazole 15 MG/5 ML (BATCHED)UDCUP PER TUBE SCH (12:30)
[2023-03-18] MEDS: Melatonin 3 MG TAB PO SCH (20:07)
[2023-03-18] MEDS: Tamsulosin HCl 0.4 MG CAP PO SCH (20:07)
[2023-03-18] MEDS: QUEtiapine 25 MG TAB PO SCH (20:07)
[2023-03-19] MEDS: Metoclopramide 10 MG/10 ML UDCUP PO SCH (06:21)
[2023-03-19] MEDS: Ciprofloxacin 500 MG TAB PER TUBE SCH (06:21)
[2023-03-19] MEDS: carBAMazepine 200 MG TAB PO SCH (08:32)
[2023-03-19] MEDS: Ascorbic Acid 500 mg Chewable Tablet PO SCH (08:32)
[2023-03-19] MEDS: Aspirin 325 MG TAB PER TUBE SCH (08:32)
[2023-03-19] MEDS: Metoprolol Tartrate 100 MG TAB PO SCH (08:32)
[2023-03-19] MEDS: Ondansetron PF 4 MG/2 ML Vial IVP PRN (08:32)
[2023-03-19] MEDS: Thiamine 100 MG TAB PER TUBE SCH (08:32)
[2023-03-19] MEDS: Saccharomyces boulardii 250 MG CAP PER TUBE SCH (08:32)
[2023-03-19] MEDS: Folic Acid 1 MG TAB PER TUBE SCH (08:33)
[2023-03-19] MEDS: Acetaminophen 500 MG TAB PO PRN (08:33)
[2023-03-19] MEDS: Losartan 25 MG TAB PO SCH (08:33)
[2023-03-19] MEDS: Magnesium Oxide 400 MG TAB PO SCH (08:33)
[2023-03-19] MEDS: Lansoprazole 15 MG/5 ML (BATCHED)UDCUP PER TUBE SCH (10:58)
[2023-03-19] MEDS: Metamucil PACK PER TUBE SCH (10:59)
[2023-03-19] MEDS: Nystatin 500,000 UNITS/5 ML UDCUP SSW SCH (10:59)
[2023-03-19 11:52] VITALS: BP 175/107; TEMP 97.9
== END 2023-03-19 12:58 | disposition home or self-care (01) | DRG 3 ==
LOC: ERS 15:06 → CCU 15:24 → EEVIPCON 15:24 → SURG A 03-08 11:11
PROVIDERS: ADMIT Surgery; ATTEND Surgery
PROC: 00C70ZZ Extirpation of Matter from Cerebral Hemisphere, Open Approach (ICD-10-PCS; principal; 2023-01-25)
PROC: 009600Z Drainage of Cerebral Ventricle with Drainage Device, Open Approach (ICD-10-PCS; 2023-01-25)
PROC: 5A1955Z Respiratory Ventilation, Greater than 96 Consecutive Hours (ICD-10-PCS; 2023-01-25)
PROC: 00C70ZZ Extirpation of Matter from Cerebral Hemisphere, Open Approach (ICD-10-PCS; 2023-01-25)
PROC: 00U20JZ Supplement Dura Mater with Synthetic Substitute, Open Approach (ICD-10-PCS; 2023-01-25)
PROC: 03HY32Z Insertion of Monitoring Device into Upper Artery, Percutaneous Approach (ICD-10-PCS; 2023-01-25)
PROC: 0D9670Z Drainage of Stomach with Drainage Device, Via Natural or Artificial Opening (ICD-10-PCS; 2023-01-25)
PROC: 30233K1 Transfusion of Nonautologous Frozen Plasma into Peripheral Vein, Percutaneous Approach (ICD-10-PCS; 2023-01-26)
PROC: 30233N1 Transfusion of Nonautologous Red Blood Cells into Peripheral Vein, Percutaneous Approach (ICD-10-PCS; 2023-01-26)
PROC: 0B113Z4 Bypass Trachea to Cutaneous, Percutaneous Approach (ICD-10-PCS; 2023-01-27)
PROC: 0DH63UZ Insertion of Feeding Device into Stomach, Percutaneous Approach (ICD-10-PCS; 2023-01-27)
PROC: 6A550Z2 Pheresis of Platelets, Single (ICD-10-PCS; 2023-01-27)
PROC: 06H03DZ Insertion of Intraluminal Device into Inferior Vena Cava, Percutaneous Approach (ICD-10-PCS; 2023-02-01)
PROC: B5191ZZ Fluoroscopy of Inferior Vena Cava using Low Osmolar Contrast (ICD-10-PCS; 2023-02-01)
PROC: 0B9B8ZZ Drainage of Left Lower Lobe Bronchus, Via Natural or Artificial Opening Endoscopic (ICD-10-PCS; 2023-02-09)
PROC: 0B948ZZ Drainage of Right Upper Lobe Bronchus, Via Natural or Artificial Opening Endoscopic (ICD-10-PCS; 2023-02-09)
PROC: 0B988ZZ Drainage of Left Upper Lobe Bronchus, Via Natural or Artificial Opening Endoscopic (ICD-10-PCS; 2023-02-09)
PROC: 0B958ZZ Drainage of Right Middle Lobe Bronchus, Via Natural or Artificial Opening Endoscopic (ICD-10-PCS; 2023-02-09)
PROC: 0B968ZZ Drainage of Right Lower Lobe Bronchus, Via Natural or Artificial Opening Endoscopic (ICD-10-PCS; 2023-02-09)
PROC: 02HV33Z Insertion of Infusion Device into Superior Vena Cava, Percutaneous Approach (ICD-10-PCS; 2023-02-16)
PROC: B548ZZA Ultrasonography of Superior Vena Cava, Guidance (ICD-10-PCS; 2023-02-16)
PROC: 3E0436Z Introduction of Nutritional Substance into Central Vein, Percutaneous Approach (ICD-10-PCS; 2023-02-18)
PROC: 00Q20ZZ Repair Dura Mater, Open Approach (ICD-10-PCS; 2023-03-03)
PROC: 0NB70ZZ Excision of Occipital Bone, Open Approach (ICD-10-PCS; 2023-03-03)
PROC: 00JU3ZZ Inspection of Spinal Canal, Percutaneous Approach (ICD-10-PCS; 2023-03-03)
DX: S06.5XAA Traumatic subdural hemorrhage with loss of consciousness status unknown, initial encounter (principal); J80 Acute respiratory distress syndrome; G93.41 Metabolic encephalopathy; J69.0 Pneumonitis due to inhalation of food and vomit; G00.8 Other bacterial meningitis; J15.0 Pneumonia due to Klebsiella pneumoniae; J15.8 Pneumonia due to other specified bacteria; B37.1 Pulmonary candidiasis; N17.9 Acute kidney failure, unspecified; G97.82 Other postprocedural complications and disorders of nervous system; G96.08 Other cranial cerebrospinal fluid leak; E87.0 Hyperosmolality and hypernatremia; K56.0 Paralytic ileus; N18.4 Chronic kidney disease, stage 4 (severe); E87.20 Acidosis, unspecified; R78.81 Bacteremia; Z16.39 Resistance to other specified antimicrobial drug; D62 Acute posthemorrhagic anemia; Z20.822 Contact with and (suspected) exposure to COVID-19; X95.9XXA Assault by unspecified firearm discharge, initial encounter; Y92.524 Gas station as the place of occurrence of the external cause; S02.113 Unspecified occipital condyle fracture; S06.6XAA Traumatic subarachnoid hemorrhage with loss of consciousness status unknown, initial encounter; R40.2312 Coma scale, best motor response, none, at arrival to emergency department; R40.2112 Coma scale, eyes open, never, at arrival to emergency department; R40.2212 Coma scale, best verbal response, none, at arrival to emergency department; E83.42 Hypomagnesemia; S02.40DB Maxillary fracture, left side, initial encounter for open fracture; S02.40CB Maxillary fracture, right side, initial encounter for open fracture; I12.9 Hypertensive chronic kidney disease with stage 1 through stage 4 chronic kidney disease, or unspecified chronic kidney disease; F10.20 Alcohol dependence, uncomplicated; S02.2XXB Fracture of nasal bones, initial encounter for open fracture; Y95 Nosocomial condition; J98.4 Other disorders of lung; G96.198 Other disorders of meninges, not elsewhere classified; E87.5 Hyperkalemia; Y83.8 Other surgical procedures as the cause of abnormal reaction of the patient, or of later complication, without mention of misadventure at the time of the procedure; E86.1 Hypovolemia; D69.6 Thrombocytopenia, unspecified; E87.6 Hypokalemia; E83.39 Other disorders of phosphorus metabolism; E83.51 Hypocalcemia; R31.9 Hematuria, unspecified; B96.89 Other specified bacterial agents as the cause of diseases classified elsewhere; R45.1 Restlessness and agitation; R19.7 Diarrhea, unspecified; B95.7 Other staphylococcus as the cause of diseases classified elsewhere; F41.9 Anxiety disorder, unspecified; R11.2 Nausea with vomiting, unspecified; R33.9 Retention of urine, unspecified; Z78.1 Physical restraint status
CPT/HCPCS: 31624; 36415; 36416; 36430; 36569; 36600; 37191; 70450; 70486; 70496; 70498; 71045; 71250; 72125; 72170; 74018; 74022; 74176; 74177; 74230; 75989; 80048; 80053; 80202; 80306; 80307; 81001; 82040; 82533; 82550; 82565; 82805; 82945; 83605; 83690; 83735; 83880; 83930; 84100; 84146; 84157; 85025; 85610; 85730; 86850; 86900; 86901; 87040; 87070; 87077; 87081; 87086; 87149; 87186; 87205; 87324; 87449; 87811; 89051; 90471; 90715; 93005; 93010; 93970; 94002; 94003; 94640; 95816; 95819; 95957; 96365; 96367; 96375; 96376; C1713; C1729; C1751; C1769; C1788; C1880; C1889; C1894; C9113; G0390; J0171; J0360; J0610; J0612; J0692; J0696; J0744; J0878; J1100; J1120; J1200; J1450; J1630; J1720; J1815; J1940; J1953; J2001; J2060; J2185; J2248; J2250; J2270; J2272; J2370; J2405; J2543; J2597; J2704; J2710; J2765; J2916; J2920; J2930; J3010; J3370; J3370-JW; J3411; J3475; J3480; J3490; J7050; J7070; J7120; J7620; P9016; P9035; P9045; P9059; Q9963; Q9967; U0002

== ENCOUNTER 2023-03-19 22:03 | Inpatient (IN) | payer SELFPAY, OTHER ==
[~2023-03-19 22:03] MED LIST changes: -Iopamidol 370 76% 100 ML VIAL ONE; +Iopamidol-370 76% 500 ML MDV (1 ML CHARGE) ONE
[2023-03-19] MEDS ORDERED: Ondansetron PF 4 MG/2 ML Vial ONE (22:48)
[2023-03-19 23:00] LABS: #Basophils 0.1 thou/uL (0.0-0.2); #Eosinphils 0.1 thou/uL (0.0-0.7); #Lymphocytes 1.8 thou/uL (1.20-3.40); #Monocytes 1.1 thou/uL (0.11-0.59); %Basophils 0.4 % (0.0-1.0); %Eosinophils 0.4 % (0.0-10.0); %Lymphocytes 12.6 % (21.0-51.0); %Monocytes 7.9 % (0.0-10.0); %Neutrophils 78.7 % (42.0-75.0); Hemoglobin 10.1 g/dL (14.0-18.0); Mean Corpuscular Hemoglobin 31.5 pg (27.0-31.0); Mean Corpuscular Volume 89.8 fl (78.0-98.0); Mean Platelet Volume 7.5 fL (7.4-10.4); Platelet Count 422 10x3/uL (130-400); RBC Distribution Width 13.8 % (11.5-14.5); Red Blood Cell (RBC) Count 3.21 mill/uL (4.70-6.10); White Blood Cell (WBC) Count 13.9 10x3/uL (4.8-10.8)
[2023-03-19 23:22] LABS: ALT (SGPT) 13 U/L (8-55); AST (SGOT) 21 U/L (5-34); Albumin 3.7 g/dL (3.5-5.0); Alkaline Phosphatase 111 U/L (40-110); Anion Gap 19 mmol/L (10-20); BUN (Urea Nitrogen) 11 mg/dL (8.9-20.6); Bilirubin, Total 0.5 mg/dL (0.2-1.2); Calc. Creatinine Clearance 0 mL/min (70-130); Calcium 9.5 mg/dL (7.8-10.44); Carbon Dioxide 25 mmol/L (22-29); Chloride 96 mmol/L (98-107); Estimated GFR 104; Globulin 4.3 g/dL (2.4-3.5); Glucose 113 mg/dL (70-105); Lipase 49 U/L (8-78); Potassium 3.6 mmol/L (3.5-5.1); Sodium 136 mmol/L (136-145)
[2023-03-20 00:38] LABS: Bacteria/HPF None Seen HPF (None Seen); Bilirubin Negative (Negative); Blood, Urine Negative (Negative); Clarity Clear (Clear); Glucose, Urine (Dipstick) Normal (Negative); Ketone, Urine 10 mg/dL (Negative); Leukocyte 25 Leu/uL (Negative); Nitrite Negative (Negative); Protein, Urine (Dipstick) 50 mg/dL (Neg-Trace); Specific Gravity, Urine 1.038 (1.002-1.036); Squamous Epithelial None Seen HPF (0-3); Urobilinogen Normal mg/dL (Less than 2)
[2023-03-20] MEDS ORDERED: Pantoprazole 80 MG, Admixture Fee 1 EACH in Sodium Chloride 0.9% 100 ML IVPB SCH (01:00)
[2023-03-20] MEDS ORDERED: cefTRIAXone (ROCEPHIN) 2 GM VIAL ONE (01:20)
[2023-03-20] MEDS ORDERED: Vancomycin 1.5 GRAM/300 ML BAG 1.5 GM in Premix Bag 1 BAG IVPB SCH (01:30)
[2023-03-20] MEDS ORDERED: Promethazine HCl 25 MG/ML VIAL IM PRN (02:46)
[2023-03-20] MEDS ORDERED: Ipratropium/Albuterol 3 ML NEB NEB PRN (02:46)
[2023-03-20] MEDS ORDERED: Cyclobenzaprine 10 MG TAB PO PRN (02:54)
[2023-03-20] MEDS ORDERED: Ondansetron PF 4 MG/2 ML Vial ONE (03:29)
[2023-03-20] MEDS: Ondansetron PF 4 MG/2 ML Vial IVP PRN ×3 (03:39→20:45)
[2023-03-20 04:00] VITALS: BMI 22.3
[2023-03-20] MEDS ORDERED: Ipratropium/Albuterol 3 ML NEB ONE (04:48)
[2023-03-20] MEDS ORDERED: Acetaminophen 650 MG Suppository ONE (04:53)
[2023-03-20] MEDS ORDERED: Acetaminophen 325 MG/10.15 ML UDCUP ONE (04:55)
[2023-03-20] MEDS ORDERED: Labetalol HCl 100 MG/20 ML VIAL ONE (05:38)
[2023-03-20] MEDS ORDERED: Ciprofloxacin 500 MG TAB ONE (05:42)
[2023-03-20] MEDS: Acetaminophen 325 MG/10.15 ML UDCUP PO SCH ×3 (05:49→17:21)
[2023-03-20] MEDS: Ciprofloxacin 500 MG TAB PO SCH ×2 (06:03→20:43)
[2023-03-20] MEDS ORDERED: hydrALAZINE 20 MG/ML VIAL ONE (06:32)
[2023-03-20 07:40] LABS: #Basophils 0.1 thou/uL (0.0-0.2); #Eosinphils 0.1 thou/uL (0.0-0.7); #Lymphocytes 2.2 thou/uL (1.20-3.40); #Monocytes 1.5 thou/uL (0.11-0.59); #Neutrophils 14.5 thou/uL (1.40-6.50); %Basophils 0.3 % (0.0-1.0); %Eosinophils 0.6 % (0.0-10.0); %Lymphocytes 12.2 % (21.0-51.0); %Monocytes 8.1 % (0.0-10.0); %Neutrophils 78.8 % (42.0-75.0); Hemoglobin 9.4 g/dL (14.0-18.0); Mean Corpuscular HGB CONC 33.3 g/dL (32.0-36.0); Mean Corpuscular Hemoglobin 30.3 pg (27.0-31.0); Mean Corpuscular Volume 90.9 fl (78.0-98.0); Mean Platelet Volume 7.5 fL (7.4-10.4); Platelet Count 421 10x3/uL (130-400); RBC Distribution Width 13.6 % (11.5-14.5); White Blood Cell (WBC) Count 18.4 10x3/uL (4.8-10.8)
[2023-03-20 07:56] LABS: Anion Gap 17 mmol/L (10-20); BUN (Urea Nitrogen) 11 mg/dL (8.9-20.6); Calc. Creatinine Clearance 84 mL/min (70-130); Calcium 9.2 mg/dL (7.8-10.44); Carbon Dioxide 25 mmol/L (22-29); Chloride 100 mmol/L (98-107); Estimated GFR 103; Glucose 105 mg/dL (70-105); INR-International Normal Ratio 1.1; Potassium 3.7 mmol/L (3.5-5.1); Prothrombin Time 14.7 sec (12.0-14.7); Sodium 138 mmol/L (136-145)
[2023-03-20 07:57] LABS: PTT 41.7 sec (22.9-36.1)
[2023-03-20] MEDS: Losartan 25 MG TAB PO SCH (08:38)
[2023-03-20] MEDS: Metoclopramide 10 MG/10 ML UDCUP PO SCH ×4 (08:38→21:05)
[2023-03-20] MEDS: carBAMazepine 200 MG TAB PO SCH ×2 (08:38→17:20)
[2023-03-20] MEDS: Metoprolol Tartrate 100 MG TAB PO SCH ×2 (08:38→20:43)
[2023-03-20] MEDS: Polyethylene Glycol 3350 17 GM Packet PO SCH (08:39)
[2023-03-20] MEDS: Acetaminophen W/ Codeine 5 ML UDCUP PO SCH ×4 (08:39→20:44)
[2023-03-20] MEDS: Aspirin 325 MG TAB PO SCH (08:39)
[2023-03-20] MEDS: Famotidine 20 MG TAB PER TUBE SCH ×2 (08:39→20:44)
[2023-03-20] MEDS: cloNIDine 0.1 MG TAB PO SCH ×2 (08:39→13:29)
[2023-03-20] MEDS: Senokot S 8.6-50 MG TAB PO SCH ×2 (08:40→20:42)
[2023-03-20] MEDS ORDERED: Scopolamine 1.5 mg/72 hour Patch TD SCH (09:00)
[2023-03-20] MEDS ORDERED: Famotidine/PF 20 mg/2ml Vial SLOW IVP SCH (09:00)
[2023-03-20] MEDS ORDERED: hydrALAZINE 20 MG/ML VIAL SLOW IVP PRN (15:01)
[2023-03-20] MEDS: Albuterol 200 PUFF (6.7GM INHALER) INH SCH (20:12)
[2023-03-20] MEDS: hydrALAZINE 25 MG TAB PO SCH (20:43)
[2023-03-20] MEDS ORDERED: Tamsulosin HCl 0.4 MG CAP PO SCH (21:00)
[2023-03-20] MEDS ORDERED: QUEtiapine 25 MG TAB PO SCH (21:00)
[2023-03-20] MEDS ORDERED: Melatonin 3 MG TAB PO SCH (21:00)
[2023-03-21] MEDS: Acetaminophen W/ Codeine 5 ML UDCUP PO SCH ×4 (00:26→14:05)
[2023-03-21] MEDS: Acetaminophen 325 MG/10.15 ML UDCUP PO SCH ×4 (00:26→12:57)
[2023-03-21] MEDS: Ciprofloxacin 500 MG TAB PO SCH (05:49)
[2023-03-21] MEDS: Metoclopramide 10 MG/10 ML UDCUP PO SCH ×2 (06:46→12:35)
[2023-03-21 07:00] LABS: #Basophils 0.1 thou/uL (0.0-0.2); #Eosinphils 0.4 thou/uL (0.0-0.7); #Lymphocytes 2.4 thou/uL (1.20-3.40); #Monocytes 0.8 thou/uL (0.11-0.59); #Neutrophils 5.6 thou/uL (1.40-6.50); %Eosinophils 4.1 % (0.0-10.0); %Lymphocytes 25.4 % (21.0-51.0); %Monocytes 8.9 % (0.0-10.0); %Neutrophils 60.5 % (42.0-75.0); Hemoglobin 9.9 g/dL (14.0-18.0); Mean Corpuscular Hemoglobin 31.6 pg (27.0-31.0); Mean Platelet Volume 8.1 fL (7.4-10.4); Platelet Count 360 10x3/uL (130-400); Red Blood Cell (RBC) Count 3.13 mill/uL (4.70-6.10); White Blood Cell (WBC) Count 9.3 10x3/uL (4.8-10.8)
[2023-03-21 07:29] LABS: Anion Gap 18 mmol/L (10-20); BUN (Urea Nitrogen) 10 mg/dL (8.9-20.6); Calc. Creatinine Clearance 77 mL/min (70-130); Calcium 9.6 mg/dL (7.8-10.44); Carbon Dioxide 22 mmol/L (22-29); Chloride 102 mmol/L (98-107); Estimated GFR 93; Glucose 104 mg/dL (70-105); Magnesium 1.8 mg/dL (1.6-2.6); Potassium 4.2 mmol/L (3.5-5.1); Sodium 138 mmol/L (136-145)
[2023-03-21] MEDS: Albuterol 200 PUFF (6.7GM INHALER) INH SCH ×2 (08:40→13:39)
[2023-03-21] MEDS: Aspirin 325 MG TAB PO SCH (09:02)
[2023-03-21] MEDS: carBAMazepine 200 MG TAB PO SCH (09:02)
[2023-03-21] MEDS: Metoprolol Tartrate 100 MG TAB PO SCH (09:02)
[2023-03-21] MEDS: Famotidine 20 MG TAB PER TUBE SCH (09:03)
[2023-03-21] MEDS: hydrALAZINE 25 MG TAB PO SCH ×2 (09:03→16:11)
[2023-03-21] MEDS: cloNIDine 0.1 MG TAB PO SCH (09:03)
[2023-03-21] MEDS: Losartan 25 MG TAB PO SCH (09:03)
[2023-03-21] MEDS: Polyethylene Glycol 3350 17 GM Packet PO SCH (09:04)
[2023-03-21] MEDS: Senokot S 8.6-50 MG TAB PO SCH (09:04)
[2023-03-21 12:40] VITALS: BP 138/86; TEMP 97.8
== END 2023-03-21 15:55 | disposition home or self-care (01) | DRG 205 ==
LOC: ERS 22:03 → ERHOLD 03-20 02:46 → SURG A 03-20 03:23
PROVIDERS: ADMIT Student in an Organized Health Care Education/Training Program; ATTEND Student in an Organized Health Care Education/Training Program
DX: R09.02 Hypoxemia (principal); G03.9 Meningitis, unspecified; K30 Functional dyspepsia; I10 Essential (primary) hypertension; G47.00 Insomnia, unspecified; Z79.899 Other long term (current) drug therapy; Z79.82 Long term (current) use of aspirin; Z98.890 Other specified postprocedural states; Z93.1 Gastrostomy status
CPT/HCPCS: 36415; 70450; 71045; 71260; 74177; 80048; 80053; 81003; 81015; 83605; 83690; 83735; 84100; 85025; 85610; 85730; 86850; 86900; 86901; 87040; 87086; 94760; C9113; J0360; J0696; J2405; J2550; J3370; J3490; J7620; Q9967

== ENCOUNTER 2023-04-16 18:52 | Inpatient (IN) | payer OTHER, SELFPAY ==
[2023-04-16] MEDS ORDERED: levETIRAcetam 500 MG/5 ML VIAL ONE (19:20)
[2023-04-16 19:31] LABS: Mean Corpuscular HGB CONC 31.9 g/dL (32.0-36.0); Mean Corpuscular Hemoglobin 28.8 pg (27.0-31.0); Mean Corpuscular Volume 90.2 fl (78.0-98.0); Mean Platelet Volume 9.6 fL (7.4-10.4); Platelet Count 445 10x3/uL (130-400); RBC Distribution Width 13.4 % (11.5-14.5); Red Blood Cell (RBC) Count 3.47 mill/uL (4.70-6.10); White Blood Cell (WBC) Count 27.7 10x3/uL (4.8-10.8)
[2023-04-16 19:37] LABS: Delete Auto Diff?? YES; Manual Diff?? YES
[2023-04-16 19:54] LABS: ALT (SGPT) 28 U/L (8-55); AST (SGOT) 25 U/L (5-34); Alkaline Phosphatase 104 U/L (40-110); Anion Gap 18 mmol/L (10-20); BUN (Urea Nitrogen) 51 mg/dL (8.9-20.6); Bilirubin, Total Less than 0.2 mg/dL (0.2-1.2); Calc. Creatinine Clearance 0 mL/min (70-130); Calcium 10.1 mg/dL (7.8-10.44); Carbon Dioxide 24 mmol/L (22-29); Chloride 97 mmol/L (98-107); Estimated GFR 80; Globulin 4.3 g/dL (2.4-3.5); Glucose 106 mg/dL (70-105); Potassium 4.5 mmol/L (3.5-5.1); Protein, Total 8.3 g/dL (6.0-8.3); Sodium 134 mmol/L (136-145)
[2023-04-16 19:59] LABS: Band 17 % (5-11); CellaVision Operator ID LAB.MJL; Eosinophils 5 % (0-10); Lymphocytes 9 % (21-51); Monocytes 1 % (0-10); Neutrophil 68 % (42-75); Ovalocytes SLIGHT = 2-5 cells HPF (0-1); Platelet Adequacy Comment Platelets Increased; Polychromasia SLIGHT = 2-3 cells HPF (0-2); Total Cell Count 101
[2023-04-16 20:51] LABS: Amphetamine Not Detected (NotDetected); Barbiturates Screen Not Detected (NotDetected); Benzodiazepine Screen Not Detected (NotDetected); Cocaine Metabolite Screen Not Detected (NotDetected); Methadone Not Detected (NotDetected); Methamphetamine Not Detected (NotDetected); Opiate Screen Not Detected (NotDetected); Oxycodone Screen Not Detected (NotDetected); Phencyclidine (PCP) Not Detected (NotDetected); THC/Cannabinoid Screen Not Detected (NotDetected); Tricyclic Screen Not Detected (NotDetected)
[2023-04-16] MEDS ORDERED: Meropenem 1 GM in Sodium Chloride 0.9% 100 ML IVPB SCH (21:00)
[2023-04-16] MEDS ORDERED: Vancomycin 1 GM/200 ML (FROZEN) BAG ONE (21:10)
[2023-04-16] MEDS ORDERED: Acetaminophen 325 MG TAB PO PRN ×2 (21:30→22:09)
[2023-04-16] MEDS ORDERED: Ondansetron PF 4 MG/2 ML Vial IVP PRN (21:30)
[2023-04-16] MEDS ORDERED: Ondansetron ODT 4 MG TAB SL PRN (21:30)
[2023-04-16 21:35] LABS: Bacteria/HPF None Seen HPF (None Seen); Bilirubin Negative (Negative); Blood, Urine Negative (Negative); CAUTI Indications for Culture Spinal Cord Injury; Clarity Clear (Clear); Glucose, Urine (Dipstick) Normal (Negative); Ketone, Urine Negative (Negative); Leukocyte Negative Leu/uL (Negative); Nitrite Negative (Negative); Protein, Urine (Dipstick) Negative (Neg-Trace); RBC/HPF 0-3 HPF (0-3); Specific Gravity, Urine 1.011 (1.002-1.036); Squamous Epithelial None Seen HPF (0-3); Urobilinogen Normal mg/dL (Less than 2); WBC/HPF 0-3 HPF (0-3)
[2023-04-16 21:36] LABS: Urine Culture Reflex No No
[2023-04-16] MEDS ORDERED: Dextrose 5% in Water 1,000 ML IV PRN (22:02)
[2023-04-16] MEDS ORDERED: Glucagon 1 MG/ML KIT IM PRN (22:02)
[2023-04-16] MEDS ORDERED: TETANUS, DIPHTHERIA TOX,ADULT (TDVAX) 0.5 ML VIAL IM ONE (22:02)
[2023-04-16] MEDS ORDERED: Dextrose 50% Abboject 50 ML SYRINGE SLOW IVP PRN (22:02)
[2023-04-16] MEDS ORDERED: Lorazepam 2 MG/ML VIAL SLOW IVP PRN (22:05)
[2023-04-16] MEDS ORDERED: Melatonin 3 MG TAB PO PRN (22:10)
[2023-04-16] MEDS ORDERED: Sodium Chloride 0.9% 1,000 ML IV SCH (22:15)
[2023-04-16] MEDS ORDERED: cefTRIAXone\\ROCEPHIN 2 GM in Sodium Chloride 0.9% 100 ML IVPB SCH (23:00)
[2023-04-16 23:28] VITALS: BMI 20.7
[2023-04-17] MEDS: metroNIDAZOLE 500 MG in Premix Bag 1 BAG IVPB SCH ×3 (01:29→16:06)
[2023-04-17 07:25] LABS: #Basophils 0.1 thou/uL (0.0-0.2); #Monocytes 0.6 thou/uL (0.11-0.59); #Neutrophils 10.4 thou/uL (1.40-6.50); %Basophils 0.5 % (0.0-1.0); %Eosinophils 6.9 % (0.0-10.0); %Lymphocytes 15.5 % (21.0-51.0); %Monocytes 4.3 % (0.0-10.0); %Neutrophils 72.3 % (42.0-75.0); Hemoglobin 8.9 g/dL (14.0-18.0); Mean Corpuscular HGB CONC 32.6 g/dL (32.0-36.0); Mean Corpuscular Hemoglobin 30.8 pg (27.0-31.0); Mean Platelet Volume 9.7 fL (7.4-10.4); Platelet Count 393 10x3/uL (130-400); RBC Distribution Width 13.7 % (11.5-14.5); Red Blood Cell (RBC) Count 2.89 mill/uL (4.70-6.10)
[2023-04-17 07:33] LABS: Mean Corpuscular Volume 94.5 fl (78.0-98.0); White Blood Cell (WBC) Count 14.4 10x3/uL (4.8-10.8)
[2023-04-17 07:46] LABS: Anion Gap 13 mmol/L (10-20); BUN (Urea Nitrogen) 31 mg/dL (8.9-20.6); Calc. Creatinine Clearance 88 mL/min (70-130); Calcium 9.9 mg/dL (7.8-10.44); Carbon Dioxide 24 mmol/L (22-29); Chloride 106 mmol/L (98-107); Estimated GFR 112; Glucose 86 mg/dL (70-105); Magnesium 2.1 mg/dL (1.6-2.6); Potassium 4.2 mmol/L (3.5-5.1); Sodium 139 mmol/L (136-145)
[2023-04-17] MEDS: carBAMazepine 200 MG TAB PO SCH ×2 (07:57→16:06)
[2023-04-17] MEDS: Aspirin 325 MG TAB PER TUBE SCH (07:57)
[2023-04-17] MEDS: Saccharomyces boulardii 250 MG CAP PER TUBE SCH (07:58)
[2023-04-17] MEDS: Famotidine 20 MG TAB PER TUBE SCH (07:58)
[2023-04-17] MEDS ORDERED: Acetaminophen 325 MG TAB PO SCH (09:00)
[2023-04-17] MEDS ORDERED: Vancomycin HCl 750 MG in Sodium Chloride 0.9% 250 ML 300 ML IVPB SCH (09:00)
[2023-04-17] MEDS ORDERED: Promethazine 25 MG TAB PO PRN (09:51)
[2023-04-17] MEDS ORDERED: Scopolamine 1.5 mg/72 hour Patch TD SCH (10:00)
[2023-04-17] MEDS ORDERED: Sodium Chloride 0.9% 1,000 ML IV SCH (10:45)
[2023-04-17] MEDS ORDERED: Vancomycin 1 GM in Premix Bag 1 BAG IVPB SCH (10:49)
[2023-04-17 10:50] LABS: Carbamazepine-Tegretol 4.3 ug/mL (4.0-12.0)
[2023-04-17] MEDS: Acetaminophen/Codeine 30-300mg Tablet PO PRN ×2 (12:08→19:29)
[2023-04-17] MEDS: Vancomycin HCl 750 MG in Sodium Chloride 0.9% 250 ML 250 ML IVPB SCH (12:09)
[2023-04-17] MEDS: Acetaminophen 325 MG TAB PO SCH ×2 (12:27→22:05)
[2023-04-17] MEDS ORDERED: Azithromycin 250 MG TAB PO SCH (16:15)
[2023-04-17] MEDS ORDERED: Amoxicillin/Potassium Clav 875 MG TAB PO SCH (21:00)
[2023-04-17] MEDS ORDERED: QUEtiapine 25 MG TAB PO SCH (21:00)
[2023-04-17] MEDS ORDERED: Ondansetron PF 4 MG/2 ML Vial IVP PRN (23:35)
[2023-04-18] MEDS: [UNRECOGNIZED DRUG - MIXTURE] PO PRN ×2 (00:18→11:23)
[2023-04-18] MEDS: Saccharomyces boulardii 250 MG CAP PER TUBE SCH ×2 (00:19→11:29)
[2023-04-18] MEDS: Famotidine 20 MG TAB PER TUBE SCH ×2 (00:19→11:29)
[2023-04-18] MEDS: Acetaminophen 325 MG TAB PO SCH ×4 (00:20→19:47)
[2023-04-18] MEDS: Vancomycin HCl 750 MG in Sodium Chloride 0.9% 250 ML 250 ML IVPB SCH (00:57)
[2023-04-18] MEDS ORDERED: D5 1/2 NS w/10 mEq KCl 1,000 ML/1,000 ML BAG IV SCH (07:45)
[2023-04-18] MEDS ORDERED: cefTRIAXone\\ROCEPHIN 2 GM in Sodium Chloride 0.9% 100 ML IVPB SCH (09:00)
[2023-04-18] MEDS ORDERED: metroNIDAZOLE 500 MG in Premix Bag 1 BAG IVPB SCH (09:00)
[2023-04-18] MEDS ORDERED: GASTROGRAFIN 30 ML BOT ONE (09:13)
[2023-04-18 10:29] LABS: #Basophils 0.1 thou/uL (0.0-0.2); #Eosinphils 0.8 thou/uL (0.0-0.7); #Monocytes 0.5 thou/uL (0.11-0.59); %Basophils 0.8 % (0.0-1.0); %Eosinophils 10.2 % (0.0-10.0); %Lymphocytes 29.4 % (21.0-51.0); %Neutrophils 53.2 % (42.0-75.0); Hemoglobin 9.3 g/dL (14.0-18.0); Mean Corpuscular Hemoglobin 31.3 pg (27.0-31.0); Mean Corpuscular Volume 94.9 fl (78.0-98.0); Mean Platelet Volume 10.2 fL (7.4-10.4); Platelet Count 436 10x3/uL (130-400); RBC Distribution Width 13.5 % (11.5-14.5); Red Blood Cell (RBC) Count 2.97 mill/uL (4.70-6.10); White Blood Cell (WBC) Count 7.5 10x3/uL (4.8-10.8)
[2023-04-18 10:52] LABS: Vancomycin, Trough 17.8 ug/mL
[2023-04-18] MEDS ORDERED: Azithromycin 1,000 MG in Sodium Chloride 0.9% 500 ML IVPB SCH (11:00)
[2023-04-18] MEDS: carBAMazepine 200 MG TAB PO SCH ×3 (11:22→19:47)
[2023-04-18] MEDS: Aspirin 325 MG TAB PER TUBE SCH ×2 (11:29→13:18)
[2023-04-18] MEDS ORDERED: guaiFENesin ER 600 MG TAB PO SCH ×3 (11:45→21:00)
[2023-04-18] MEDS ORDERED: Azithromycin 500 MG in Sodium Chloride 0.9% 250 ML 250 ML IVPB SCH (12:00)
[2023-04-18 16:17] VITALS: BP 139/83; TEMP 98.1
[2023-04-18] MEDS ORDERED: Tamsulosin HCl 0.4 MG CAP PO SCH (21:00)
[2023-04-18] MEDS ORDERED: Amoxicillin/Potassium Clav 875 MG TAB PO SCH (21:00)
[2023-04-19] MEDS ORDERED: Losartan 25 MG TAB PER TUBE SCH (09:00)
[2023-04-19] MEDS ORDERED: Azithromycin 250 MG TAB PO SCH (09:00)
== END 2023-04-18 20:45 | disposition home or self-care (01) | DRG 101 ==
LOC: ERS 18:52 → 2NO 21:20 → SURG A 04-17 22:13
PROVIDERS: ADMIT Surgery; ATTEND Surgery
DX: G40.909 Epilepsy, unspecified, not intractable, without status epilepticus (principal); D72.829 Elevated white blood cell count, unspecified; I10 Essential (primary) hypertension; B37.9 Candidiasis, unspecified; T42.1X6A Underdosing of iminostilbenes, initial encounter; Z87.820 Personal history of traumatic brain injury; Z79.899 Other long term (current) drug therapy; Z98.890 Other specified postprocedural states; Z79.82 Long term (current) use of aspirin; Z93.1 Gastrostomy status
CPT/HCPCS: 36415; 70450; 71045; 71260; 74018; 80048; 80053; 80156; 80202; 80306; 81001; 83605; 83735; 84100; 84146; 84484; 85025; 85652; 86140; 87040; 87070; 87086; 87205; 93005; 95712; 95819; 95957; 96365; 96367; J0456; J0696; J1953; J2185; J2405; J3370; J3370-JW; J3480; J3490; J7050; Q0169; Q9963

== ENCOUNTER 2023-06-22 22:11 | Inpatient (IN) | payer OTHER, SELFPAY ==
[2023-06-22] MEDS ORDERED: Ondansetron PF 4 MG/2 ML Vial ONE (23:00)
[2023-06-22 23:06] LABS: #Eosinphils 0.1 thou/uL (0.0-0.7); #Monocytes 0.5 thou/uL (0.11-0.59); #Neutrophils 3.5 thou/uL (1.40-6.50); %Basophils 0.6 % (0.0-1.0); %Eosinophils 0.8 % (0.0-10.0); %Lymphocytes 32.6 % (21.0-51.0); %Monocytes 8.6 % (0.0-10.0); %Neutrophils 57.1 % (42.0-75.0); Hemoglobin 10.6 g/dL (14.0-18.0); Mean Corpuscular HGB CONC 32.7 g/dL (32.0-36.0); Mean Corpuscular Hemoglobin 29.7 pg (27.0-31.0); Mean Corpuscular Volume 90.8 fl (78.0-98.0); Mean Platelet Volume 10.1 fL (7.4-10.4); Platelet Count 312 10x3/uL (130-400); Red Blood Cell (RBC) Count 3.57 mill/uL (4.70-6.10); White Blood Cell (WBC) Count 6.2 10x3/uL (4.8-10.8)
[2023-06-22 23:29] LABS: ALT (SGPT) 15 U/L (8-55); AST (SGOT) 21 U/L (5-34); Albumin 3.8 g/dL (3.5-5.0); Alkaline Phosphatase 78 U/L (40-110); Anion Gap 17 mmol/L (10-20); BUN (Urea Nitrogen) 30 mg/dL (8.9-20.6); Bilirubin, Total 0.2 mg/dL (0.2-1.2); Calc. Creatinine Clearance 0 mL/min (70-130); Calcium 9.6 mg/dL (7.8-10.44); Carbon Dioxide 25 mmol/L (22-29); Chloride 107 mmol/L (98-107); Estimated GFR 62; Globulin 3.8 g/dL (2.4-3.5); Glucose 81 mg/dL (70-105); Lipase 8 U/L (8-78); Potassium 3.8 mmol/L (3.5-5.1); Protein, Total 7.6 g/dL (6.0-8.3); Sodium 145 mmol/L (136-145)
[2023-06-23] MEDS ORDERED: Ketorolac Tromethamine 30 MG/ML VIAL ONE (00:27)
[2023-06-23] MEDS ORDERED: Famotidine/PF 20 mg/2ml Vial ONE (00:27)
[2023-06-23] MEDS ORDERED: Metoclopramide 10 MG/10 ML UDCUP ONE (00:27)
[2023-06-23] MEDS ORDERED: Metoclopramide HCl 10 MG/2 ML VIAL ONE (00:28)
[2023-06-23 02:25] LABS: Bacteria/HPF None Seen HPF (None Seen); Bilirubin Negative (Negative); Blood, Urine Negative (Negative); CAUTI Indications for Culture Dysuria,urgency,freq; Clarity Clear (Clear); Glucose, Urine (Dipstick) Normal (Negative); Ketone, Urine 40 mg/dL (Negative); Leukocyte Negative Leu/uL (Negative); Nitrite Negative (Negative); Protein, Urine (Dipstick) 30 mg/dL (Neg-Trace); RBC/HPF 0-3 HPF (0-3); Squamous Epithelial 0-3 HPF (0-3); Urobilinogen Normal mg/dL (Less than 2); WBC/HPF 0-3 HPF (0-3); pH, Urine 7.5 (5.0-9.0)
[2023-06-23 02:46] LABS: Specific Gravity, Urine 1.054 (1.002-1.036)
[2023-06-23 02:47] LABS: Urine Culture Reflex No No
[2023-06-23] MEDS ORDERED: Pantoprazole 40 MG VIAL ONE (03:08)
[2023-06-23] MEDS ORDERED: Ondansetron PF 4 MG/2 ML Vial IVP PRN (04:30)
[2023-06-23] MEDS ORDERED: Ondansetron ODT 4 MG TAB SL PRN (04:30)
[2023-06-23] MEDS ORDERED: Acetaminophen 325 MG TAB PO PRN (04:30)
[2023-06-23] MEDS: Lactated Ringer's 1,000 ML IV SCH ×2 (04:54→20:06)
[2023-06-23] MEDS ORDERED: Acetaminophen 650 MG Suppository PR PRN (06:47)
[2023-06-23] MEDS ORDERED: Melatonin 3 MG TAB PER TUBE PRN (08:19)
[2023-06-23] MEDS ORDERED: Pantoprazole 40 MG VIAL IVP SCH (09:00)
[2023-06-23] MEDS: Gabapentin 300 MG CAP PER TUBE SCH ×2 (10:18→20:07)
[2023-06-23] MEDS: carBAMazepine 200 MG TAB PER TUBE SCH ×2 (10:19→20:06)
[2023-06-23] MEDS ORDERED: Guaifenesin DM 100-10/5 ML UDCUP PO PRN (11:23)
[2023-06-23 11:33] LABS: Amphetamine Not Detected (NotDetected); Barbiturates Screen Not Detected (NotDetected); Benzodiazepine Screen Not Detected (NotDetected); Cocaine Metabolite Screen Not Detected (NotDetected); Methadone Not Detected (NotDetected); Methamphetamine Not Detected (NotDetected); Opiate Screen Detected (NotDetected); Oxycodone Screen Not Detected (NotDetected); Phencyclidine (PCP) Not Detected (NotDetected); THC/Cannabinoid Screen Not Detected (NotDetected); Tricyclic Screen Not Detected (NotDetected)
[2023-06-23] MEDS: Ampicillin/Sulbactam 3 GM in Sodium Chloride 0.9% 100 ML IVPB SCH ×2 (13:37→20:05)
[2023-06-23] MEDS ORDERED: Ampicillin/Sulbactam 3 GM in Sodium Chloride 0.9% 100 ML IVPB SCH (15:00)
[2023-06-23] MEDS: QUEtiapine 25 MG TAB PER TUBE SCH (20:10)
[2023-06-23] MEDS: Pantoprazole 40 MG VIAL IVP SCH (20:12)
[2023-06-23] MEDS: Polyethylene Glycol 3350 17 GM Packet PER TUBE SCH (20:40)
[2023-06-24] MEDS: Ampicillin/Sulbactam 3 GM in Sodium Chloride 0.9% 100 ML IVPB SCH (03:18)
[2023-06-24] MEDS ORDERED: Polyethylene Glycol 3350 17 GM Packet PER TUBE SCH (09:00)
[2023-06-24] MEDS ORDERED: Bisacodyl 10 MG SUPP PR PRN (09:36)
[2023-06-24] MEDS ORDERED: Bisacodyl 10 MG SUPP PR SCH (10:00)
[2023-06-24] MEDS: carBAMazepine 200 MG TAB PER TUBE SCH ×2 (10:45→21:38)
[2023-06-24] MEDS: Gabapentin 300 MG CAP PER TUBE SCH ×2 (10:45→21:38)
[2023-06-24] MEDS: Pantoprazole 40 MG VIAL IVP SCH ×2 (10:46→21:37)
[2023-06-24 11:05] LABS: #Basophils 0.1 thou/uL (0.0-0.2); #Eosinphils 0.2 thou/uL (0.0-0.7); #Monocytes 0.4 thou/uL (0.11-0.59); %Basophils 1.7 % (0.0-1.0); %Eosinophils 2.8 % (0.0-10.0); %Lymphocytes 30.7 % (21.0-51.0); %Monocytes 8.2 % (0.0-10.0); %Neutrophils 56.4 % (42.0-75.0); Hemoglobin 10.5 g/dL (14.0-18.0); Mean Corpuscular HGB CONC 32.2 g/dL (32.0-36.0); Mean Corpuscular Hemoglobin 29.4 pg (27.0-31.0); Mean Corpuscular Volume 91.3 fl (78.0-98.0); Platelet Count 270 10x3/uL (130-400); RBC Distribution Width 12.6 % (11.5-14.5); Red Blood Cell (RBC) Count 3.57 mill/uL (4.70-6.10); White Blood Cell (WBC) Count 5.4 10x3/uL (4.8-10.8)
[2023-06-24 11:27] LABS: Anion Gap 17 mmol/L (10-20); BUN (Urea Nitrogen) 22 mg/dL (8.9-20.6); Calc. Creatinine Clearance 68 mL/min (70-130); Calcium 9.8 mg/dL (7.8-10.44); Carbon Dioxide 22 mmol/L (22-29); Chloride 109 mmol/L (98-107); Estimated GFR 94; Potassium 3.4 mmol/L (3.5-5.1); Sodium 145 mmol/L (136-145)
[2023-06-24 12:18] LABS: Glucose 53 mg/dL (70-105)
[2023-06-24] MEDS ORDERED: Dextrose 50% Abboject 50 ML SYRINGE SLOW IVP PRN (12:35)
[2023-06-24] MEDS: Dextrose 5 % And 0.9 % NaCl 1,000 ML IV SCH (13:31)
[2023-06-24 13:51] LABS: Carbamazepine-Tegretol 2.6 ug/mL (4.0-12.0)
[2023-06-24] MEDS: Polyethylene Glycol 3350 17 GM Packet PER TUBE SCH ×2 (17:27→21:39)
[2023-06-24] MEDS: QUEtiapine 25 MG TAB PER TUBE SCH (21:38)
[2023-06-25] MEDS: Dextrose 5 % And 0.9 % NaCl 1,000 ML IV SCH ×2 (01:00→17:37)
[2023-06-25 08:55] LABS: Anion Gap 17 mmol/L (10-20); BUN (Urea Nitrogen) 11 mg/dL (8.9-20.6); Calc. Creatinine Clearance 73 mL/min (70-130); Calcium 9.4 mg/dL (7.8-10.44); Carbon Dioxide 21 mmol/L (22-29); Chloride 108 mmol/L (98-107); Estimated GFR 103; Glucose 78 mg/dL (70-105); Potassium 3.5 mmol/L (3.5-5.1); Sodium 142 mmol/L (136-145)
[2023-06-25] MEDS: Gabapentin 300 MG CAP PER TUBE SCH ×2 (08:57→21:15)
[2023-06-25] MEDS: carBAMazepine 200 MG TAB PER TUBE SCH ×2 (08:57→21:14)
[2023-06-25] MEDS: Pantoprazole 40 MG VIAL IVP SCH ×2 (08:58→21:15)
[2023-06-25] MEDS: Polyethylene Glycol 3350 17 GM Packet PER TUBE SCH ×2 (08:58→21:16)
[2023-06-25] MEDS ORDERED: Acetaminophen 325 MG/10.15 ML UDCUP PO PRN (15:20)
[2023-06-25] MEDS: QUEtiapine 25 MG TAB PER TUBE SCH (21:15)
[2023-06-26] MEDS: Dextrose 5 % And 0.9 % NaCl 1,000 ML IV SCH ×2 (05:56→18:20)
[2023-06-26] MEDS: Polyethylene Glycol 3350 17 GM Packet PER TUBE SCH (10:28)
[2023-06-26] MEDS: Gabapentin 300 MG CAP PER TUBE SCH (10:28)
[2023-06-26] MEDS: Pantoprazole 40 MG VIAL IVP SCH (10:29)
[2023-06-26] MEDS: carBAMazepine 200 MG TAB PER TUBE SCH (10:29)
[2023-06-26 12:26] VITALS: TEMP 98.4
[2023-06-26 15:49] VITALS: BP 128/84
== END 2023-06-26 20:14 | disposition home or self-care (01) | DRG 392 ==
LOC: ERS 22:11 → SJJU 06-23 02:39 → OBSVTOIN 06-25 09:56
PROVIDERS: ADMIT Student in an Organized Health Care Education/Training Program; ATTEND Internal Medicine
DX: K59.00 Constipation, unspecified (principal); N17.9 Acute kidney failure, unspecified; D64.9 Anemia, unspecified; G40.909 Epilepsy, unspecified, not intractable, without status epilepticus; Z87.820 Personal history of traumatic brain injury; Z79.82 Long term (current) use of aspirin; Z79.899 Other long term (current) drug therapy; Z93.1 Gastrostomy status; R13.12 Dysphagia, oropharyngeal phase
CPT/HCPCS: 36415; 36416; 71045; 74177; 76700; 80048; 80053; 80156; 80306; 81001; 83605; 83690; 83880; 85025; 96361; 96365; 96367; 96372; 96374; 96375; 96376; C9113; G0378; J0295; J0780; J1650; J1885; J2405; J2765; J3490; J7042; J7120; J7999; Q9967; S0028

== ENCOUNTER 2023-09-14 14:04 | Outpatient (CLI) | payer OTHER | END 2023-09-14 14:05 | disposition home or self-care (01) | LOC: EEG 14:04 | PROVIDERS: ATTEND Psychiatry & Neurology Neurology | DX: R56.9 Unspecified convulsions (principal); W34.00XA Accidental discharge from unspecified firearms or gun, initial encounter | CPT/HCPCS: 95816 ==

== ENCOUNTER 2023-10-29 12:10 | Emergency (ER) | payer OTHER, SELFPAY ==
[2023-10-29 12:45] LABS: #Monocytes 0.9 thou/uL (0.11-0.59); #Neutrophils 9.3 thou/uL (1.40-6.50); %Basophils 0.2 % (0.0-1.0); %Eosinophils 0.3 % (0.0-10.0); %Lymphocytes 10.9 % (21.0-51.0); %Monocytes 7.4 % (0.0-10.0); %Neutrophils 80.9 % (42.0-75.0); Hematocrit 31.7 % (42.0-52.0); Hemoglobin 10.9 g/dL (14.0-18.0); Mean Corpuscular HGB CONC 34.4 g/dL (32.0-36.0); Mean Corpuscular Volume 90.1 fl (78.0-98.0); Mean Platelet Volume 9.7 fL (7.4-10.4); Platelet Count 340 10x3/uL (130-400); RBC Distribution Width 13.5 % (11.5-14.5); Red Blood Cell (RBC) Count 3.52 mill/uL (4.70-6.10); White Blood Cell (WBC) Count 11.4 10x3/uL (4.8-10.8)
[2023-10-29] MEDS ORDERED: Ondansetron PF 4 MG/2 ML Vial ONE (12:46)
[2023-10-29 13:18] LABS: ALT (SGPT) 26 U/L (8-55); AST (SGOT) 28 U/L (5-34); Albumin 3.7 g/dL (3.5-5.0); Alkaline Phosphatase 107 U/L (40-110); Anion Gap 15 mmol/L (10-20); BUN (Urea Nitrogen) 26 mg/dL (8.9-20.6); Bilirubin, Total 0.2 mg/dL (0.2-1.2); CK (CPK) 68 U/L (30-200); Calc. Creatinine Clearance 0 mL/min (70-130); Calcium 9.3 mg/dL (7.8-10.44); Carbon Dioxide 29 mmol/L (22-29); Chloride 95 mmol/L (98-107); Estimated GFR 105; Globulin 4.4 g/dL (2.4-3.5); Glucose 79 mg/dL (70-105); Potassium 3.1 mmol/L (3.5-5.1); Protein, Total 8.1 g/dL (6.0-8.3); Sodium 136 mmol/L (136-145)
== END 2023-10-29 14:57 | disposition home or self-care (01) ==
LOC: ERS 12:10
DX: R11.2 Nausea with vomiting, unspecified (principal)
CPT/HCPCS: 36415; 80053; 82550; 83605; 85025; 96361; 96374; J2405

== ENCOUNTER 2024-04-01 23:28 | Inpatient (IN) | payer OTHER ==
[2024-04-02] MEDS ORDERED: Ondansetron PF 4 MG/2 ML Vial ONE ×2 (00:14→02:41)
[2024-04-02] MEDS ORDERED: Pantoprazole 40 MG VIAL ONE (00:14)
[2024-04-02 01:02] LABS: #Basophils 0.03 10x3/uL (0.0-0.2); #Eosinphils Less than 0.03 10x3/uL (0.0-0.7); %Basophils 0.2 % (0.0-1.0); %Lymphocytes 3.7 % (21.0-51.0); %Monocytes 3.6 % (0.0-10.0); %Neutrophils 91.9 % (42.0-75.0); Hematocrit 36.1 % (42.0-52.0); Hemoglobin 12.6 g/dL (14.0-18.0); Mean Corpuscular HGB CONC 34.9 g/dL (32.0-36.0); Mean Corpuscular Hemoglobin 33.5 pg (27.0-31.0); Mean Platelet Volume 10.7 fL (7.4-10.4); Platelet Count 234 10x3/uL (130-400); RBC Distribution Width 12.1 % (11.5-14.5); Red Blood Cell (RBC) Count 3.76 mill/uL (4.70-6.10)
[2024-04-02 01:16] LABS: INR-International Normal Ratio 1.1; PTT 35.1 sec (22.9-36.1); Prothrombin Time 14.4 sec (12.0-14.7)
[2024-04-02 01:24] LABS: ALT (SGPT) 21 U/L (8-55); AST (SGOT) 21 U/L (5-34); Albumin 4.3 g/dL (3.5-5.0); Alkaline Phosphatase 113 U/L (40-110); Anion Gap 19 mmol/L (10-20); BUN (Urea Nitrogen) 25 mg/dL (8.9-20.6); Bilirubin, Total 0.6 mg/dL (0.2-1.2); Calc. Creatinine Clearance 0 mL/min (70-130); Calcium 9.4 mg/dL (7.8-10.44); Carbon Dioxide 25 mmol/L (22-29); Chloride 107 mmol/L (98-107); Estimated GFR 109; Globulin 3.9 g/dL (2.4-3.5); Glucose 119 mg/dL (70-105); Lipase 11 U/L (8-78); Potassium 3.8 mmol/L (3.5-5.1); Protein, Total 8.2 g/dL (6.0-8.3); Sodium 147 mmol/L (136-145)
[2024-04-02] MEDS ORDERED: Acetaminophen 325 MG TAB PO PRN (05:45)
[2024-04-02] MEDS: Metoclopramide HCl 10 MG (2 mL) VIAL IVP SCH (06:06)
[2024-04-02] MEDS: Sodium Chloride 0.9% 500 ML IV SCH (06:07)
[2024-04-02] MEDS: Sodium Chloride 0.9% 1,000 ML IV SCH (06:36)
[2024-04-02 07:55] LABS: Lactic Acid 1.6 mmol/L (0.5-2.2)
[2024-04-02] MEDS: Ondansetron ODT 4 MG TAB SL PRN (08:37)
[2024-04-02] MEDS: Pantoprazole 40 MG VIAL IVP SCH (08:38)
[2024-04-02] MEDS: Ondansetron PF 4 MG/2 ML Vial IVP PRN (11:42)
[2024-04-02 12:03] LABS: Bilirubin Negative (Negative); Blood, Urine Negative (Negative); Clarity Clear (Clear); Glucose, Urine (Dipstick) Negative (Negative); Ketone, Urine Negative (Negative); Leukocyte Negative (Negative); Nitrite Negative (Negative); Protein, Urine (Dipstick) Trace mg/dL (Neg-Trace); Specific Gravity, Urine 1.015 (1.005-1.030); Urobilinogen 0.2 mg/dL (Less than 2)
[2024-04-02 12:04] LABS: Bacteria/HPF None Seen HPF (None Seen); RBC/HPF 0-3 HPF (0-3); Squamous Epithelial 0-3 HPF (0-3); WBC/HPF 0-3 HPF (0-3)
[2024-04-02] MEDS ORDERED: Lorazepam 2 MG/ML VIAL IM PRN (15:56)
[2024-04-02] MEDS ORDERED: Lorazepam 1 MG TAB PO PRN (15:56)
[2024-04-02] MEDS ORDERED: Electrolyte Replacement Protocol 1 EACH FS SCH (16:00)
[2024-04-02] MEDS ORDERED: Lorazepam 1 MG TAB PO SCH (16:00)
[2024-04-02] MEDS ORDERED: Lorazepam 0.5 MG TAB PER TUBE PRN (16:15)
[2024-04-02] MEDS ORDERED: Lorazepam 2 MG/ML VIAL SLOW IVP SCH ×2 (16:45→17:00)
[2024-04-02] MEDS ORDERED: Lorazepam 2 MG/ML VIAL SLOW IVP PRN ×3 (17:00)
[2024-04-02] MEDS: Dextrose 5 %-0.45 % NaCl 1,000 ML IV SCH (17:13)
[2024-04-02] MEDS: Thiamine HCl 200 MG/2 ML VIAL SLOW IVP SCH (17:14)
[2024-04-02] MEDS: Ondansetron ODT 4 MG TAB PO PRN (17:16)
[2024-04-02] MEDS: Lorazepam 2 MG/ML VIAL SLOW IVP SCH (17:16)
[2024-04-02] MEDS: Multivits W-Minerals Liquid 15 ML UDCUP PER TUBE SCH (17:17)
[2024-04-02] MEDS: Folic Acid 1 MG TAB PER TUBE SCH (17:17)
[2024-04-02] MEDS: Multivit, Therapeutic 1 TAB PO SCH (17:29)
[2024-04-02] MEDS: Folic Acid 1 MG TAB PO SCH (17:29)
[2024-04-02 20:14] LABS: Amphetamine Not Detected (NotDetected); Barbiturates Screen Not Detected (NotDetected); Benzodiazepine Screen Not Detected (NotDetected); Cocaine Metabolite Screen Not Detected (NotDetected); Methadone Not Detected (NotDetected); Methamphetamine Not Detected (NotDetected); Opiate Screen Not Detected (NotDetected); Oxycodone Screen Not Detected (NotDetected); Phencyclidine (PCP) Not Detected (NotDetected); THC/Cannabinoid Screen Detected (NotDetected); Tricyclic Screen Not Detected (NotDetected)
[2024-04-02] MEDS ORDERED: Melatonin 3 MG TAB PO PRN (22:12)
[2024-04-02] MEDS ORDERED: traZODone HCl 50 MG TAB PER TUBE PRN (22:13)
[2024-04-02] MEDS: Melatonin 3 MG TAB PER TUBE PRN (23:53)
[2024-04-03 04:13] LABS: #Basophils Less than 0.03 10x3/uL (0.0-0.2); #Eosinphils Less than 0.03 10x3/uL (0.0-0.7); %Basophils 0.2 % (0.0-1.0); %Lymphocytes 24.5 % (21.0-51.0); %Monocytes 6.4 % (0.0-10.0); %Neutrophils 68.6 % (42.0-75.0); Hematocrit 33.3 % (42.0-52.0); Hemoglobin 11.2 g/dL (14.0-18.0); Mean Corpuscular HGB CONC 33.6 g/dL (32.0-36.0); Mean Corpuscular Volume 98.2 fL (78.0-98.0); Mean Platelet Volume 11.3 fL (7.4-10.4); Platelet Count 207 10x3/uL (130-400); RBC Distribution Width 12.4 % (11.5-14.5); Red Blood Cell (RBC) Count 3.39 mill/uL (4.70-6.10)
[2024-04-03 04:35] LABS: Phosphorus 2.6 mg/dL (2.3-4.7)
[2024-04-03 04:38] LABS: Anion Gap 14 mmol/L (10-20); BUN (Urea Nitrogen) 25 mg/dL (8.9-20.6); Calc. Creatinine Clearance 70 mL/min (70-130); Calcium 9.8 mg/dL (7.8-10.44); Carbon Dioxide 20 mmol/L (22-29); Chloride 117 mmol/L (98-107); Estimated GFR 109; Glucose 112 mg/dL (70-105); Magnesium 2.1 mg/dL (1.6-2.6); Potassium 3.4 mmol/L (3.5-5.1); Sodium 148 mmol/L (136-145)
[2024-04-03] MEDS ORDERED: Multivit, Therapeutic 1 TAB PO SCH (09:00)
[2024-04-03] MEDS ORDERED: Folic Acid 1 MG TAB PO SCH (09:00)
[2024-04-03] MEDS: Potassium Bicarbonate/Cit Ac 20 MEQ TAB PER TUBE SCH (10:20)
[2024-04-03] MEDS: Folic Acid 1 MG TAB PER TUBE SCH (10:21)
[2024-04-03] MEDS: Dextrose 5% w/ 20 mEq KCl 1,000 ML IV SCH (10:21)
[2024-04-03] MEDS: Multivits W-Minerals Liquid 15 ML UDCUP PER TUBE SCH (10:21)
[2024-04-03] MEDS: Ondansetron PF 4 MG/2 ML Vial IVP PRN (11:27)
[2024-04-03] MEDS ORDERED: Temazepam 15 MG CAP PER TUBE PRN (13:00)
[2024-04-03] MEDS ORDERED: traZODone HCl 50 MG TAB PER TUBE PRN (13:15)
[2024-04-03] MEDS ORDERED: Lorazepam 1 MG TAB PO PRN (15:56)
[2024-04-03] MEDS ORDERED: Lorazepam 2 MG/ML VIAL SLOW IVP PRN (17:00)
[2024-04-03] MEDS: carBAMazepine 200 MG TAB PER TUBE SCH (17:01)
[2024-04-03] MEDS: QUEtiapine 25 MG TAB PER TUBE SCH (20:13)
[2024-04-03] MEDS: Gabapentin 300 MG CAP PER TUBE SCH (20:15)
[2024-04-04 11:48] LABS: #Basophils 0.03 10x3/uL (0.0-0.2); #Eosinphils Less than 0.03 10x3/uL (0.0-0.7); %Basophils 0.3 % (0.0-1.0); %Eosinophils 0.2 % (0.0-10.0); %Lymphocytes 26.3 % (21.0-51.0); %Monocytes 6.4 % (0.0-10.0); %Neutrophils 66.6 % (42.0-75.0); Hematocrit 34.1 % (42.0-52.0); Hemoglobin 11.8 g/dL (14.0-18.0); Mean Corpuscular HGB CONC 34.6 g/dL (32.0-36.0); Mean Corpuscular Hemoglobin 32.6 pg (27.0-31.0); Mean Corpuscular Volume 94.2 fL (78.0-98.0); Mean Platelet Volume 11.3 fL (7.4-10.4); Platelet Count 194 10x3/uL (130-400); RBC Distribution Width 11.9 % (11.5-14.5); Red Blood Cell (RBC) Count 3.62 mill/uL (4.70-6.10)
[2024-04-04 12:03] VITALS: BMI 17.9
[2024-04-04 12:08] LABS: Anion Gap 12 mmol/L (10-20); BUN (Urea Nitrogen) 19 mg/dL (8.9-20.6); Calc. Creatinine Clearance 77 mL/min (70-130); Calcium 9.6 mg/dL (7.8-10.44); Carbon Dioxide 24 mmol/L (22-29); Chloride 107 mmol/L (98-107); Estimated GFR 112; Glucose 113 mg/dL (70-105); Magnesium 1.8 mg/dL (1.6-2.6); Potassium 3.9 mmol/L (3.5-5.1); Sodium 139 mmol/L (136-145)
[2024-04-04] MEDS: Magnesium 2 GM/50 ML(in water) 2 GM in Premix 1 BAG IVPB SCH (12:34)
[2024-04-04] MEDS ORDERED: Lorazepam 1 MG TAB PO PRN ×2 (15:56→17:00)
[2024-04-04] MEDS ORDERED: Lorazepam 0.5 MG TAB PO SCH (16:00)
[2024-04-04] MEDS ORDERED: Lorazepam 2 MG/ML VIAL SLOW IVP PRN (17:00)
[2024-04-04] MEDS: Lorazepam 2 MG/ML VIAL SLOW IVP SCH (18:13)
[2024-04-05 00:21] LABS: #Basophils 0.03 10x3/uL (0.0-0.2); %Basophils 0.4 % (0.0-1.0); %Eosinophils 0.7 % (0.0-10.0); %Lymphocytes 37.8 % (21.0-51.0); %Monocytes 6.6 % (0.0-10.0); %Neutrophils 54.4 % (42.0-75.0); Hematocrit 31.8 % (42.0-52.0); Mean Corpuscular HGB CONC 34.6 g/dL (32.0-36.0); Mean Corpuscular Hemoglobin 33.2 pg (27.0-31.0); Mean Corpuscular Volume 96.1 fL (78.0-98.0); Mean Platelet Volume 11.1 fL (7.4-10.4); Platelet Count 193 10x3/uL (130-400); RBC Distribution Width 11.8 % (11.5-14.5); Red Blood Cell (RBC) Count 3.31 mill/uL (4.70-6.10)
[2024-04-05] MEDS: Sodium Chloride 0.9% 500 ML IV SCH (00:25)
[2024-04-05 00:49] LABS: ALT (SGPT) 112 U/L (8-55); AST (SGOT) 113 U/L (5-34); Albumin 3.3 g/dL (3.5-5.0); Alkaline Phosphatase 94 U/L (40-110); Anion Gap 11 mmol/L (10-20); BUN (Urea Nitrogen) 21 mg/dL (8.9-20.6); Bilirubin, Total 0.5 mg/dL (0.2-1.2); Calc. Creatinine Clearance 81 mL/min (70-130); Calcium 8.8 mg/dL (7.8-10.44); Carbon Dioxide 23 mmol/L (22-29); Chloride 105 mmol/L (98-107); Estimated GFR 113; Globulin 3.3 g/dL (2.4-3.5); Glucose 93 mg/dL (70-105); Magnesium 2.1 mg/dL (1.6-2.6); Potassium 3.9 mmol/L (3.5-5.1); Protein, Total 6.6 g/dL (6.0-8.3); Sodium 135 mmol/L (136-145)
[2024-04-05 04:59] LABS: #Basophils 0.04 10x3/uL (0.0-0.2); %Basophils 0.4 % (0.0-1.0); %Monocytes 6.6 % (0.0-10.0); %Neutrophils 63.7 % (42.0-75.0); Hematocrit 32.5 % (42.0-52.0); Hemoglobin 11.4 g/dL (14.0-18.0); Mean Corpuscular HGB CONC 35.1 g/dL (32.0-36.0); Mean Corpuscular Hemoglobin 32.9 pg (27.0-31.0); Mean Corpuscular Volume 93.7 fL (78.0-98.0); Mean Platelet Volume 11.4 fL (7.4-10.4); Platelet Count 189 10x3/uL (130-400); RBC Distribution Width 11.8 % (11.5-14.5); Red Blood Cell (RBC) Count 3.47 mill/uL (4.70-6.10)
[2024-04-05 05:29] LABS: Anion Gap 10 mmol/L (10-20); BUN (Urea Nitrogen) 21 mg/dL (8.9-20.6); Calc. Creatinine Clearance 83 mL/min (70-130); Carbon Dioxide 24 mmol/L (22-29); Chloride 106 mmol/L (98-107); Estimated GFR 114; Glucose 95 mg/dL (70-105); Sodium 136 mmol/L (136-145)
[2024-04-05 08:31] VITALS: BMI 18.9
[2024-04-05] MEDS: Acetaminophen 325 MG (10.15 ML) UDCUP PER TUBE PRN (10:27)
[2024-04-05 11:24] VITALS: BP 98/56; TEMP 98.9
[2024-04-05] MEDS ORDERED: Lorazepam 0.5 MG TAB PO PRN ×2 (15:56→17:00)
[2024-04-05] MEDS ORDERED: Thiamine 100 MG TAB PO SCH (16:00)
[2024-04-05] MEDS ORDERED: Lorazepam 2 MG/ML VIAL SLOW IVP PRN (17:00)
== END 2024-04-05 16:15 | disposition home or self-care (01) | DRG 392 ==
LOC: ERS 23:28 → 2NO 04-02 05:32
PROVIDERS: ADMIT Student in an Organized Health Care Education/Training Program; ATTEND Internal Medicine
DX: K29.20 Alcoholic gastritis without bleeding (principal); E87.0 Hyperosmolality and hypernatremia; Z68.1 Body mass index [BMI] 19.9 or less, adult; E87.20 Acidosis, unspecified; R11.2 Nausea with vomiting, unspecified; D64.9 Anemia, unspecified; Z93.1 Gastrostomy status; J38.00 Paralysis of vocal cords and larynx, unspecified; E86.9 Volume depletion, unspecified; E87.6 Hypokalemia; G47.00 Insomnia, unspecified; R63.6 Underweight; Z87.820 Personal history of traumatic brain injury; Z79.899 Other long term (current) drug therapy; F12.10 Cannabis abuse, uncomplicated; Z71.51 Drug abuse counseling and surveillance of drug abuser; D72.829 Elevated white blood cell count, unspecified; Z71.41 Alcohol abuse counseling and surveillance of alcoholic
CPT/HCPCS: 36415; 71045; 80048; 80053; 80306; 81001; 83605; 83690; 83735; 84100; 85025; 85610; 85730; 87040; 93005; C9113; J0780; J2060; J2405; J2765; J3411; J3475; J3480; J7030; J7042; J7050; Q0162

== ENCOUNTER 2024-04-20 00:25 | Inpatient (IN) | payer OTHER ==
[2024-04-20] MEDS ORDERED: Haloperidol Lactate 5 MG/ML VIAL ONE (01:57)
[2024-04-20 02:17] LABS: #Basophils Less than 0.03 10x3/uL (0.0-0.2); #Eosinphils Less than 0.03 10x3/uL (0.0-0.7); %Basophils 0.1 % (0.0-1.0); %Eosinophils 0.1 % (0.0-10.0); %Lymphocytes 13.2 % (21.0-51.0); %Monocytes 2.8 % (0.0-10.0); %Neutrophils 83.6 % (42.0-75.0); Hematocrit 39.1 % (42.0-52.0); Hemoglobin 13.8 g/dL (14.0-18.0); Mean Corpuscular HGB CONC 35.3 g/dL (32.0-36.0); Mean Corpuscular Hemoglobin 32.9 pg (27.0-31.0); Mean Corpuscular Volume 93.3 fL (78.0-98.0); Mean Platelet Volume 10.5 fL (7.4-10.4); Platelet Count 288 10x3/uL (130-400); Red Blood Cell (RBC) Count 4.19 mill/uL (4.70-6.10)
[2024-04-20 02:30] LABS: ALT (SGPT) 18 U/L (8-55); AST (SGOT) 15 U/L (5-34); Albumin 4.3 g/dL (3.5-5.0); Alkaline Phosphatase 123 U/L (40-110); Anion Gap 19 mmol/L (10-20); BUN (Urea Nitrogen) 21 mg/dL (8.9-20.6); Bilirubin, Total 0.5 mg/dL (0.2-1.2); Calc. Creatinine Clearance 0 mL/min (70-130); Calcium 10.4 mg/dL (7.8-10.44); Carbon Dioxide 23 mmol/L (22-29); Chloride 106 mmol/L (98-107); Estimated GFR 101; Globulin 4.2 g/dL (2.4-3.5); Glucose 113 mg/dL (70-105); Potassium 3.6 mmol/L (3.5-5.1); Protein, Total 8.5 g/dL (6.0-8.3); Sodium 144 mmol/L (136-145)
[2024-04-20 03:00] LABS: Prothrombin Time 13.1 sec (12.0-14.7)
[2024-04-20 03:01] LABS: PTT 36.2 sec (22.9-36.1)
[2024-04-20] MEDS ORDERED: Pantoprazole 80 MG, Admixture Fee 1 EACH in Sodium Chloride 0.9% 100 ML IVPB SCH ×2 (04:00→06:30)
[2024-04-20] MEDS ORDERED: Pantoprazole 40 MG VIAL ONE (05:52)
[2024-04-20] MEDS ORDERED: Calcium Carbonate 500 MG ChewTAB PO PRN (07:51)
[2024-04-20] MEDS ORDERED: Acetaminophen 325 MG TAB PO PRN (07:51)
[2024-04-20] MEDS ORDERED: Senokot S 8.6-50 MG TAB PO PRN (07:51)
[2024-04-20] MEDS ORDERED: Acetaminophen 650 MG Suppository PR PRN (07:51)
[2024-04-20] MEDS ORDERED: Prochlorperazine 10 MG/2 ML VIAL ONE (07:55)
[2024-04-20] MEDS ORDERED: Pantoprazole 80 MG in Sodium Chloride 0.9% 100 ML IVPB SCH (08:00)
[2024-04-20 09:23] VITALS: BMI 18.3
[2024-04-20] MEDS: carBAMazepine 200 MG TAB PER TUBE SCH (09:51)
[2024-04-20] MEDS: Gabapentin 300 MG CAP PER TUBE SCH (09:52)
[2024-04-20] MEDS: Lactated Ringer's 1,000 ML IV SCH (09:53)
[2024-04-20] MEDS ORDERED: Iopamidol-370 76% 500 ML MDV (1 ML CHARGE) ONE (11:05)
[2024-04-20 11:21] LABS: Amphetamine Not Detected (NotDetected); Barbiturates Screen Not Detected (NotDetected); Benzodiazepine Screen Not Detected (NotDetected); Cocaine Metabolite Screen Not Detected (NotDetected); Methadone Not Detected (NotDetected); Methamphetamine Not Detected (NotDetected); Opiate Screen Not Detected (NotDetected); Oxycodone Screen Not Detected (NotDetected); Phencyclidine (PCP) Not Detected (NotDetected); THC/Cannabinoid Screen Detected (NotDetected); Tricyclic Screen Not Detected (NotDetected)
[2024-04-20] MEDS: Ondansetron PF 4 MG/2 ML Vial IVP PRN (18:04)
[2024-04-20] MEDS: QUEtiapine 25 MG TAB PER TUBE SCH (20:37)
[2024-04-20] MEDS: Pantoprazole 40 MG VIAL IVP SCH (20:38)
[2024-04-21 06:20] LABS: #Basophils Less than 0.03 10x3/uL (0.0-0.2); #Eosinphils Less than 0.03 10x3/uL (0.0-0.7); %Basophils 0.1 % (0.0-1.0); %Eosinophils 0.1 % (0.0-10.0); %Lymphocytes 9.6 % (21.0-51.0); %Monocytes 4.8 % (0.0-10.0); Hematocrit 33.1 % (42.0-52.0); Hemoglobin 11.2 g/dL (14.0-18.0); Mean Corpuscular HGB CONC 33.8 g/dL (32.0-36.0); Mean Corpuscular Hemoglobin 32.7 pg (27.0-31.0); Mean Corpuscular Volume 96.8 fL (78.0-98.0); Mean Platelet Volume 10.9 fL (7.4-10.4); Platelet Count 245 10x3/uL (130-400); RBC Distribution Width 12.3 % (11.5-14.5); Red Blood Cell (RBC) Count 3.42 mill/uL (4.70-6.10)
[2024-04-21 06:36] LABS: ALT (SGPT) 16 U/L (8-55); AST (SGOT) 13 U/L (5-34); Albumin 3.7 g/dL (3.5-5.0); Alkaline Phosphatase 96 U/L (40-110); Anion Gap 14 mmol/L (10-20); BUN (Urea Nitrogen) 26 mg/dL (8.9-20.6); Bilirubin, Total 0.4 mg/dL (0.2-1.2); Calc. Creatinine Clearance 69 mL/min (70-130); Calcium 9.6 mg/dL (7.8-10.44); Carbon Dioxide 26 mmol/L (22-29); Chloride 107 mmol/L (98-107); Estimated GFR 108; Globulin 3.8 g/dL (2.4-3.5); Glucose 106 mg/dL (70-105); Magnesium 1.8 mg/dL (1.6-2.6); Potassium 3.4 mmol/L (3.5-5.1); Protein, Total 7.5 g/dL (6.0-8.3); Sodium 144 mmol/L (136-145)
[2024-04-21 08:10] VITALS: BMI 18.3
[2024-04-21] MEDS ORDERED: PROPOFOL 20 ML ONE ×2 (12:55→13:22)
[2024-04-21] MEDS ORDERED: Lidocaine 1% PF 5 ML VIAL ONE (12:56)
[2024-04-21] MEDS ORDERED: Electrolyte Replacement Protocol 1 EACH FS SCH (15:30)
[2024-04-21] MEDS: Promethazine HCl 12.5 MG in Sodium Chloride 0.9% 50 ML IVPB PRN (16:02)
[2024-04-21 16:56] LABS: Hematocrit 34.3 % (42.0-52.0); Hemoglobin 11.4 g/dL (14.0-18.0); Platelet Count 228 10x3/uL (130-400)
[2024-04-21] MEDS: Ondansetron 2MG/ML MDV 8 MG in Sodium Chloride 0.9% 50 ML IVPB SCH (21:44)
[2024-04-21] MEDS: D5 1/2 NS w/20 mEq KCL 1,000 ML IV SCH (21:46)
[2024-04-21] MEDS: Capsaicin 0.025% Cream 60 gm Tube TOP SCH ×2 (21:53→21:54)
[2024-04-21] MEDS: Magnesium 2 GM/50 ML(in water) 2 GM in Premix 1 BAG IVPB SCH (22:40)
[2024-04-21] MEDS: Potassium Bicarbonate/Cit Ac 20 MEQ TAB PER TUBE SCH (23:11)
[2024-04-22] MEDS: Potassium Chloride 20 MEQ in Premix 1 BAG IVPB SCH (03:19)
[2024-04-22 05:58] LABS: Hematocrit 34.1 % (42.0-52.0); Hemoglobin 11.8 g/dL (14.0-18.0); Platelet Count 247 10x3/uL (130-400)
[2024-04-22 06:26] LABS: Anion Gap 20 mmol/L (10-20); BUN (Urea Nitrogen) 23 mg/dL (8.9-20.6); Calc. Creatinine Clearance 74 mL/min (70-130); Calcium 9.6 mg/dL (7.8-10.44); Carbon Dioxide 20 mmol/L (22-29); Chloride 108 mmol/L (98-107); Estimated GFR 111; Glucose 94 mg/dL (70-105); Potassium 3.6 mmol/L (3.5-5.1); Sodium 144 mmol/L (136-145)
[2024-04-22] MEDS: Ondansetron ODT 4 MG TAB PO PRN (11:21)
[2024-04-22] MEDS ORDERED: Iopamidol-370 76% 500 ML MDV (1 ML CHARGE) ONE (12:38)
[2024-04-22 14:43] LABS: Hemoglobin 11.8 g/dL (14.0-18.0); Platelet Count 237 10x3/uL (130-400)
[2024-04-22] MEDS: Promethazine HCl 12.5 MG in Sodium Chloride 0.9% 50 ML IVPB PRN (14:46)
[2024-04-22] MEDS: Haloperidol 5 MG TAB PO SCH (21:32)
[2024-04-22] MEDS: Melatonin 3 MG TAB PER TUBE PRN (21:34)
[2024-04-23 08:14] VITALS: BP 132/83; TEMP 98
== END 2024-04-23 16:35 | disposition home or self-care (01) | DRG 391 ==
LOC: SUATTDRO 00:25 → ERS 00:25 → SURG B 08:31 → OBSVTOIN 04-21 15:22
PROVIDERS: ADMIT Internal Medicine; ATTEND Internal Medicine
PROC: 0DB68ZX Excision of Stomach, Via Natural or Artificial Opening Endoscopic, Diagnostic (ICD-10-PCS; principal; 2024-04-21)
DX: K29.80 Duodenitis without bleeding (principal); K22.11 Ulcer of esophagus with bleeding; F39 Unspecified mood [affective] disorder; K44.9 Diaphragmatic hernia without obstruction or gangrene; Z87.820 Personal history of traumatic brain injury; F12.10 Cannabis abuse, uncomplicated; K12.30 Oral mucositis (ulcerative), unspecified
CPT/HCPCS: 36415; 36416; 70487; 71045; 74177; 80048; 80053; 80306; 83735; 85014; 85018; 85025; 85049; 85610; 85730; 86850; 86900; 86901; 88305; 93005; 94760; 96361; 96375; 96376; C9113; G0378; J0780; J1630; J2405; J2550; J2704; J3475; J3480; J3490; J7120; Q0162; Q9967

== ENCOUNTER 2024-04-24 13:00 | Observation (INO) | payer OTHER ==
[2024-04-24] MEDS ORDERED: Pantoprazole 40 MG VIAL ONE (14:37)
[2024-04-24] MEDS ORDERED: Haloperidol Lactate 5 MG/ML VIAL ONE (14:37)
[2024-04-24 15:33] LABS: #Basophils 0.03 10x3/uL (0.0-0.2); #Eosinphils Less than 0.03 10x3/uL (0.0-0.7); %Basophils 0.2 % (0.0-1.0); %Lymphocytes 5.9 % (21.0-51.0); %Monocytes 5.2 % (0.0-10.0); %Neutrophils 88.2 % (42.0-75.0); Hematocrit 36.7 % (42.0-52.0); Hemoglobin 13.1 g/dL (14.0-18.0); Mean Corpuscular HGB CONC 35.7 g/dL (32.0-36.0); Mean Corpuscular Hemoglobin 33.9 pg (27.0-31.0); Mean Corpuscular Volume 94.8 fL (78.0-98.0); Mean Platelet Volume 11.7 fL (7.4-10.4); Platelet Count 248 10x3/uL (130-400); RBC Distribution Width 11.9 % (11.5-14.5); Red Blood Cell (RBC) Count 3.87 mill/uL (4.70-6.10)
[2024-04-24 16:00] LABS: ALT (SGPT) 34 U/L (8-55); AST (SGOT) 14 U/L (5-34); Albumin 3.8 g/dL (3.5-5.0); Alkaline Phosphatase 111 U/L (40-110); Anion Gap 19 mmol/L (10-20); BUN (Urea Nitrogen) 21 mg/dL (8.9-20.6); Bilirubin, Total 0.5 mg/dL (0.2-1.2); Calc. Creatinine Clearance 0 mL/min (70-130); Calcium 9.5 mg/dL (7.8-10.44); Carbon Dioxide 24 mmol/L (22-29); Chloride 102 mmol/L (98-107); Estimated GFR 113; Globulin 4.2 g/dL (2.4-3.5); Glucose 82 mg/dL (70-105); Potassium 2.5 mmol/L (3.5-5.1); Sodium 142 mmol/L (136-145)
[2024-04-24] MEDS ORDERED: Calcium Carbonate 500 MG ChewTAB PO PRN (16:59)
[2024-04-24] MEDS ORDERED: Senokot S 8.6-50 MG TAB PO PRN (16:59)
[2024-04-24 18:12] VITALS: BMI 17.7
[2024-04-24] MEDS: Morphine 2 MG/ML VIAL SLOW IVP SCH (18:48)
[2024-04-24] MEDS: Potassium Bicarbonate/Cit Ac 20 MEQ TAB PER TUBE SCH (18:49)
[2024-04-24] MEDS: NS 0.9% w/ 40 MEQ KCL 1,000 ML IV SCH (19:02)
[2024-04-24] MEDS: Ondansetron PF 4 MG/2 ML Vial IVP PRN (19:34)
[2024-04-24 21:06] LABS: Potassium 3.3 mmol/L (3.5-5.1)
[2024-04-24] MEDS: Promethazine HCl 12.5 MG in Sodium Chloride 0.9% 50 ML IVPB SCH (21:09)
[2024-04-24] MEDS: Gabapentin 300 MG CAP PER TUBE SCH (21:50)
[2024-04-24] MEDS: carBAMazepine 100 mg Chewable Tablet PER TUBE SCH (21:50)
[2024-04-24] MEDS: QUEtiapine 25 MG TAB PER TUBE SCH (21:50)
[2024-04-24] MEDS: Morphine 2 MG/ML VIAL SLOW IVP PRN (23:07)
[2024-04-25 05:35] LABS: #Basophils Less than 0.03 10x3/uL (0.0-0.2); #Eosinphils Less than 0.03 10x3/uL (0.0-0.7); %Basophils 0.1 % (0.0-1.0); %Eosinophils 0.1 % (0.0-10.0); %Lymphocytes 12.6 % (21.0-51.0); %Monocytes 6.5 % (0.0-10.0); %Neutrophils 80.4 % (42.0-75.0); Hematocrit 34.8 % (42.0-52.0); Mean Corpuscular HGB CONC 34.5 g/dL (32.0-36.0); Mean Corpuscular Hemoglobin 32.3 pg (27.0-31.0); Mean Corpuscular Volume 93.5 fL (78.0-98.0); Mean Platelet Volume 11.3 fL (7.4-10.4); Platelet Count 210 10x3/uL (130-400); RBC Distribution Width 11.9 % (11.5-14.5); Red Blood Cell (RBC) Count 3.72 mill/uL (4.70-6.10)
[2024-04-25 05:57] LABS: ALT (SGPT) 19 U/L (8-55); AST (SGOT) 15 U/L (5-34); Albumin 3.2 g/dL (3.5-5.0); Alkaline Phosphatase 114 U/L (40-110); Anion Gap 15 mmol/L (10-20); BUN (Urea Nitrogen) 17 mg/dL (8.9-20.6); Bilirubin, Total 0.6 mg/dL (0.2-1.2); Calc. Creatinine Clearance 84 mL/min (70-130); Calcium 9.3 mg/dL (7.8-10.44); Carbon Dioxide 23 mmol/L (22-29); Chloride 104 mmol/L (98-107); Estimated GFR 116; Globulin 3.5 g/dL (2.4-3.5); Glucose 62 mg/dL (70-105); Potassium 3.5 mmol/L (3.5-5.1); Protein, Total 6.7 g/dL (6.0-8.3); Sodium 138 mmol/L (136-145)
[2024-04-25] MEDS: Pantoprazole 40 MG VIAL IVP SCH ×2 (07:49→09:47)
[2024-04-25 13:13] VITALS: BMI 17.7
[2024-04-25] MEDS: Lorazepam 2 MG/ML VIAL SLOW IVP PRN (16:55)
[2024-04-25] MEDS: Acetaminophen 325 MG TAB PO PRN (16:57)
[2024-04-26 04:30] LABS: #Basophils 0.03 10x3/uL (0.0-0.2); %Basophils 0.2 % (0.0-1.0); %Eosinophils 0.2 % (0.0-10.0); %Lymphocytes 16.6 % (21.0-51.0); %Neutrophils 76.6 % (42.0-75.0); Hematocrit 30.7 % (42.0-52.0); Hemoglobin 10.5 g/dL (14.0-18.0); Mean Corpuscular HGB CONC 34.2 g/dL (32.0-36.0); Mean Corpuscular Hemoglobin 32.8 pg (27.0-31.0); Mean Corpuscular Volume 95.9 fL (78.0-98.0); Mean Platelet Volume 11.2 fL (7.4-10.4); Platelet Count 211 10x3/uL (130-400); RBC Distribution Width 11.6 % (11.5-14.5)
[2024-04-26 05:00] LABS: ALT (SGPT) 18 U/L (8-55); AST (SGOT) 12 U/L (5-34); Albumin 2.8 g/dL (3.5-5.0); Alkaline Phosphatase 86 U/L (40-110); Anion Gap 12 mmol/L (10-20); BUN (Urea Nitrogen) 16 mg/dL (8.9-20.6); Bilirubin, Total 0.4 mg/dL (0.2-1.2); Calc. Creatinine Clearance 86 mL/min (70-130); Calcium 8.4 mg/dL (7.8-10.44); Carbon Dioxide 24 mmol/L (22-29); Chloride 102 mmol/L (98-107); Estimated GFR 117; Globulin 3.2 g/dL (2.4-3.5); Glucose 78 mg/dL (70-105); Potassium 3.4 mmol/L (3.5-5.1); Sodium 135 mmol/L (136-145)
[2024-04-26] MEDS: Potassium Bicarbonate/Cit Ac 25 MEQ TAB PER TUBE SCH (10:22)
[2024-04-26 13:19] VITALS: BP 121/82; TEMP 97.5
== END 2024-04-26 13:20 | disposition home or self-care (01) ==
LOC: SUATTDRO 13:00 → ERS 13:00 → 2NO 16:52
PROVIDERS: ADMIT Internal Medicine; ATTEND Family Medicine
DX: R11.2 Nausea with vomiting, unspecified (principal); E87.6 Hypokalemia; S06.9XAA Unspecified intracranial injury with loss of consciousness status unknown, initial encounter; F12.10 Cannabis abuse, uncomplicated; F39 Unspecified mood [affective] disorder; J38.00 Paralysis of vocal cords and larynx, unspecified; D72.829 Elevated white blood cell count, unspecified; Z93.1 Gastrostomy status; D64.9 Anemia, unspecified; W34.00XA Accidental discharge from unspecified firearms or gun, initial encounter; Z79.899 Other long term (current) drug therapy
CPT/HCPCS: 36415; 80053; 85025; 96374; 96375; 96376; C9113; G0378; J1630; J2060; J2272; J2405; J2550; J3480

== ENCOUNTER 2024-05-09 11:21 | Observation (INO) | payer OTHER ==
[2024-05-09] MEDS ORDERED: Ondansetron PF 4 MG/2 ML Vial ONE (12:15)
[2024-05-09 12:27] LABS: #Basophils 0.03 10x3/uL (0.0-0.2); #Eosinphils Less than 0.03 10x3/uL (0.0-0.7); %Basophils 0.1 % (0.0-1.0); %Lymphocytes 2.8 % (21.0-51.0); %Monocytes 2.1 % (0.0-10.0); %Neutrophils 94.5 % (42.0-75.0); Hematocrit 39.3 % (42.0-52.0); Hemoglobin 13.5 g/dL (14.0-18.0); Mean Corpuscular HGB CONC 34.4 g/dL (32.0-36.0); Mean Corpuscular Hemoglobin 32.2 pg (27.0-31.0); Mean Corpuscular Volume 93.8 fL (78.0-98.0); Mean Platelet Volume 9.9 fL (7.4-10.4); Platelet Count 341 10x3/uL (130-400); RBC Distribution Width 12.5 % (11.5-14.5); Red Blood Cell (RBC) Count 4.19 mill/uL (4.70-6.10)
[2024-05-09 12:40] LABS: PTT 33.2 sec (22.9-36.1); Prothrombin Time 13.6 sec (12.0-14.7)
[2024-05-09] MEDS ORDERED: Haloperidol Lactate 5 MG/ML VIAL ONE (12:41)
[2024-05-09] MEDS ORDERED: Dicyclomine 20 MG/2 ML VIAL ONE (12:41)
[2024-05-09 12:52] LABS: ALT (SGPT) 16 U/L (8-55); AST (SGOT) 20 U/L (5-34); Albumin 4.1 g/dL (3.5-5.0); Alkaline Phosphatase 90 U/L (40-110); Anion Gap 17 mmol/L (10-20); BUN (Urea Nitrogen) 22 mg/dL (8.9-20.6); Bilirubin, Total 0.3 mg/dL (0.2-1.2); Calc. Creatinine Clearance 0 mL/min (70-130); Calcium 9.9 mg/dL (7.8-10.44); Carbon Dioxide 25 mmol/L (22-29); Chloride 109 mmol/L (98-107); Estimated GFR 112; Globulin 4.2 g/dL (2.4-3.5); Glucose 125 mg/dL (70-105); Potassium 3.7 mmol/L (3.5-5.1); Protein, Total 8.3 g/dL (6.0-8.3); Sodium 147 mmol/L (136-145)
[2024-05-09] MEDS ORDERED: Famotidine/PF 20 mg/2ml Vial ONE (14:24)
[2024-05-09] MEDS ORDERED: Metoclopramide HCl 10 MG (2 mL) VIAL ONE (16:41)
[2024-05-09] MEDS ORDERED: Ondansetron PF 4 MG/2 ML Vial IVP PRN (17:30)
[2024-05-09] MEDS ORDERED: Ondansetron ODT 4 MG TAB PO PRN (17:30)
[2024-05-09] MEDS ORDERED: Acetaminophen 650 MG Suppository PR PRN (17:30)
[2024-05-09] MEDS ORDERED: Acetaminophen 325 MG TAB PO PRN (17:30)
[2024-05-09] MEDS ORDERED: Metoclopramide HCl 10 MG (2 mL) VIAL IVP PRN (17:31)
[2024-05-09] MEDS: Scopolamine 1 mg/72 hour Patch TD SCH (18:46)
[2024-05-09 18:55] VITALS: BMI 16.8
[2024-05-09 21:50] VITALS: TEMP 98
[2024-05-10 00:32] VITALS: BP 122/77
[2024-05-10] MEDS: Pantoprazole 80 MG, Admixture Fee 1 EACH in Sodium Chloride 0.9% 100 ML IVPB SCH (03:21)
[2024-05-10 04:04] LABS: #Basophils Less than 0.03 10x3/uL (0.0-0.2); #Eosinphils Less than 0.03 10x3/uL (0.0-0.7); %Basophils 0.1 % (0.0-1.0); %Lymphocytes 9.5 % (21.0-51.0); %Monocytes 3.4 % (0.0-10.0); %Neutrophils 86.5 % (42.0-75.0); Hematocrit 34.1 % (42.0-52.0); Hemoglobin 11.7 g/dL (14.0-18.0); Mean Corpuscular HGB CONC 34.3 g/dL (32.0-36.0); Mean Corpuscular Hemoglobin 32.7 pg (27.0-31.0); Mean Corpuscular Volume 95.3 fL (78.0-98.0); Mean Platelet Volume 10.2 fL (7.4-10.4); Platelet Count 340 10x3/uL (130-400); RBC Distribution Width 12.6 % (11.5-14.5); Red Blood Cell (RBC) Count 3.58 mill/uL (4.70-6.10)
[2024-05-10 05:18] LABS: Anion Gap 14 mmol/L (10-20); BUN (Urea Nitrogen) 16 mg/dL (8.9-20.6); Calc. Creatinine Clearance 70 mL/min (70-130); Carbon Dioxide 24 mmol/L (22-29); Chloride 109 mmol/L (98-107); Estimated GFR 112; Glucose 126 mg/dL (70-105); Potassium 3.3 mmol/L (3.5-5.1); Sodium 144 mmol/L (136-145)
[2024-05-10 05:19] LABS: Acetaminophen Less than 10 mcg/mL (10.0-30.0); Alcohol Less than 10.0 mg/dL (Less than 10); Salicylate Less than 8.0 mg/dL (15.0-30.0)
== END 2024-05-10 07:34 | disposition left against medical advice (07) ==
LOC: ERS 11:21 → ERHOLD 16:50 → 2SW 21:10
PROVIDERS: ADMIT Family Medicine; ATTEND Family Medicine
DX: R11.2 Nausea with vomiting, unspecified (principal); S06.9XAA Unspecified intracranial injury with loss of consciousness status unknown, initial encounter; K20.90 Esophagitis, unspecified without bleeding; F31.9 Bipolar disorder, unspecified; D72.829 Elevated white blood cell count, unspecified; E87.1 Hypo-osmolality and hyponatremia; F12.929 Cannabis use, unspecified with intoxication, unspecified; G40.909 Epilepsy, unspecified, not intractable, without status epilepticus; Z79.899 Other long term (current) drug therapy
CPT/HCPCS: 36415; 36416; 71260; 74177; 80048; 80053; 80307; 83605; 85025; 85610; 85730; 86850; 86900; 86901; 87040; 96372; 96374; 96375; 96376; C9113; G0378; J1630; J2405; J2765; J3490; Q9967; S0028

== ENCOUNTER 2024-05-10 08:15 | Emergency (ER) | payer OTHER | END 2024-05-10 08:33 | disposition left against medical advice (07) | LOC: ERS 08:15 | DX: Z53.21 Procedure and treatment not carried out due to patient leaving prior to being seen by health care provider (principal) ==

== ENCOUNTER 2024-09-23 13:37 | Emergency (ER) | payer MEDICAID, OTHER ==
[2024-09-23 15:04] LABS: #Basophils Less than 0.03 10x3/uL (0.0-0.2); #Eosinophils Less than 0.03 10x3/uL (0.0-0.7); %Basophils 0.1 % (0.0-1.0); %Lymphocytes 9.3 % (21.0-51.0); %Monocytes 5.5 % (0.0-10.0); %Neutrophils 84.7 % (42.0-75.0); Hematocrit 37.8 % (42.0-52.0); Hemoglobin 13.3 g/dL (14.0-18.0); Mean Corpuscular HGB CONC 35.2 g/dL (32.0-36.0); Mean Corpuscular Hemoglobin 32.1 pg (27.0-31.0); Mean Corpuscular Volume 91.3 fL (78.0-98.0); Platelet Count 317 10x3/uL (130-400); RBC Distribution Width 12.1 % (11.5-14.5); Red Blood Cell (RBC) Count 4.14 mill/uL (4.70-6.10)
[2024-09-23] MEDS ORDERED: Iopamidol-370 76% 500 ML MDV (1 ML CHARGE) ONE (15:18)
[2024-09-23 15:20] LABS: ALT (SGPT) 15 U/L (8-55); AST (SGOT) 17 U/L (5-34); Albumin 4.3 g/dL (3.5-5.0); Alkaline Phosphatase 124 U/L (40-110); Anion Gap 20 mmol/L (10-20); BUN (Urea Nitrogen) 31 mg/dL (8.9-20.6); Bilirubin, Total 0.6 mg/dL (0.2-1.2); Calc. Creatinine Clearance 0 mL/min (70-130); Calcium 9.5 mg/dL (7.8-10.44); Carbon Dioxide 24 mmol/L (22-29); Chloride 104 mmol/L (98-107); Estimated GFR 104; Globulin 4.1 g/dL (2.4-3.5); Glucose 114 mg/dL (70-105); Lipase 9 U/L (8-78); Protein, Total 8.4 g/dL (6.0-8.3); Sodium 145 mmol/L (136-145)
[2024-09-23] MEDS ORDERED: Metoclopramide HCl 10 MG (2 mL) VIAL ONE (15:21)
[2024-09-23] MEDS ORDERED: Famotidine/PF 20 mg/2ml Vial ONE (15:21)
[2024-09-23 15:24] LABS: INR-International Normal Ratio 1.1; Prothrombin Time 14.1 sec (12.0-14.7)
[2024-09-23 15:25] LABS: PTT 36.1 sec (22.9-36.1); Troponin I Less than 0.010 ng/mL (< 0.028)
[2024-09-23] MEDS ORDERED: Droperidol 5 MG/2 ML VIAL ONE (18:49)
[2024-09-23] MEDS ORDERED: diphenhydrAMINE 50 MG/ML VIAL ONE (18:49)
== END 2024-09-23 19:50 | disposition home or self-care (01) ==
LOC: ERS 13:37
DX: R11.2 Nausea with vomiting, unspecified (principal); D72.829 Elevated white blood cell count, unspecified; F17.290 Nicotine dependence, other tobacco product, uncomplicated
CPT/HCPCS: 36415; 74177; 80053; 83605; 83690; 84484; 85025; 85610; 85730; 86850; 86900; 86901; 93005; 96374; 96375; J1200; J1790; J2765; J3490; Q9967

== ENCOUNTER 2024-10-14 15:48 | Emergency (ER) | payer OTHER ==
[2024-10-14] MEDS ORDERED: Acetaminophen 500 MG TAB ONE (16:44)
[2024-10-14] MEDS ORDERED: LORazepam 2 MG/ML SYR.(CARPUJECT) ONE ×2 (16:46→17:35)
[2024-10-14] MEDS ORDERED: Famotidine/PF 20 mg/2ml Vial ONE (16:47)
[2024-10-14 18:01] LABS: #Basophils Less than 0.03 10x3/uL (0.0-0.2); #Eosinophils Less than 0.03 10x3/uL (0.0-0.7); %Basophils 0.1 % (0.0-1.0); %Lymphocytes 4.5 % (21.0-51.0); %Monocytes 5.2 % (0.0-10.0); Hematocrit 35.5 % (42.0-52.0); Hemoglobin 12.7 g/dL (14.0-18.0); Mean Corpuscular HGB CONC 35.8 g/dL (32.0-36.0); Mean Corpuscular Hemoglobin 31.5 pg (27.0-31.0); Mean Corpuscular Volume 88.1 fL (78.0-98.0); Mean Platelet Volume 10.4 fL (7.4-10.4); Platelet Count 289 10x3/uL (130-400); RBC Distribution Width 11.7 % (11.5-14.5); Red Blood Cell (RBC) Count 4.03 mill/uL (4.70-6.10)
[2024-10-14 18:18] LABS: ALT (SGPT) 17 U/L (8-55); AST (SGOT) 15 U/L (5-34); Albumin 3.7 g/dL (3.5-5.0); Alkaline Phosphatase 103 U/L (40-110); Anion Gap 16 mmol/L (10-20); BUN (Urea Nitrogen) 35 mg/dL (8.9-20.6); Calc. Creatinine Clearance 0 mL/min (70-130); Calcium 8.6 mg/dL (7.8-10.44); Carbon Dioxide 23 mmol/L (22-29); Chloride 102 mmol/L (98-107); Estimated GFR 83; Globulin 3.5 g/dL (2.4-3.5); Glucose 111 mg/dL (70-105); Lipase 10 U/L (8-78); Potassium 2.8 mmol/L (3.5-5.1); Protein, Total 7.2 g/dL (6.0-8.3); Sodium 138 mmol/L (136-145)
[2024-10-14 18:39] LABS: Troponin I Less than 0.010 ng/mL (< 0.028)
[2024-10-14] MEDS ORDERED: Droperidol 5 MG/2 ML VIAL ONE (18:46)
[2024-10-14] MEDS ORDERED: Potassium Chloride 20 MEQ TAB ONE (19:13)
[2024-10-14 21:35] LABS: Bacteria/HPF None Seen HPF (None Seen); Bilirubin Negative (Negative); Blood, Urine Negative (Negative); CAUTI Indications for Culture Alt mental st,lethar; Clarity Clear (Clear); Glucose, Urine (Dipstick) Normal (Negative); Ketone, Urine 40 mg/dL (Negative); Leukocyte Negative Leu/uL (Negative); Nitrite Negative (Negative); Protein, Urine (Dipstick) 30 mg/dL (Neg-Trace); RBC/HPF 0-3 HPF (0-3); Squamous Epithelial 0-3 HPF (0-3); Urobilinogen Normal mg/dL (Less than 2); WBC/HPF 0-3 HPF (0-3)
[2024-10-14 21:42] LABS: Specific Gravity, Urine 1.056 (1.002-1.036)
[2024-10-14 21:43] LABS: Amphetamine Not Detected (NotDetected); Barbiturates Screen Not Detected (NotDetected); Benzodiazepine Screen Detected (NotDetected); Cocaine Metabolite Screen Not Detected (NotDetected); Methadone Not Detected (NotDetected); Methamphetamine Not Detected (NotDetected); Opiate Screen Not Detected (NotDetected); Oxycodone Screen Not Detected (NotDetected); Phencyclidine (PCP) Not Detected (NotDetected); THC/Cannabinoid Screen Detected (NotDetected); Tricyclic Screen Not Detected (NotDetected)
[2024-10-14 21:44] LABS: Urine Culture Reflex No No
== END 2024-10-14 22:14 | disposition home or self-care (01) ==
LOC: ERS 15:48
DX: R11.2 Nausea with vomiting, unspecified (principal); E87.6 Hypokalemia; D72.829 Elevated white blood cell count, unspecified; R82.5 Elevated urine levels of drugs, medicaments and biological substances; F17.290 Nicotine dependence, other tobacco product, uncomplicated
CPT/HCPCS: 36415; 70450; 74177; 80053; 80306; 81001; 82140; 83690; 84443; 84484; 85025; 93005; 96374; 96375; 96376; J1790; J2060; J3490; Q9967

== ENCOUNTER 2025-10-31 09:50 | Inpatient (IN) | payer BC ==
[2025-10-31] MEDS ORDERED: cefTRIAXone (ROCEPHIN) 1 GM VIAL ONE ×2 (10:10→11:06)
[2025-10-31] MEDS ORDERED: Ondansetron PF 4 MG/2 ML Vial ONE (10:19)
[2025-10-31 10:30] LABS: Hematocrit 40.8 % (42.0-52.0); Hemoglobin 13.3 g/dL (14.0-18.0); Mean Corpuscular Hemoglobin 28.7 pg (27.0-31.0); Mean Corpuscular Volume 88.1 fL (78.0-98.0); Platelet Count 329 10x3/uL (130-400); Red Blood Cell (RBC) Count 4.63 mill/uL (4.70-6.10); White Blood Cell (WBC) Count 27.87 10x3/uL (4.8-10.8)
[2025-10-31 10:43] LABS: INR-International Normal Ratio 1.3; PTT 40.4 sec (22.9-36.1); Prothrombin Time 16.0 sec (12.0-14.7)
[2025-10-31 11:04] LABS: Burr Cells SLIGHT = 2-5 cells HPF (0-1); Platelet Adequacy Comment Platelets Normal; Polychromasia SLIGHT = 2-3 cells HPF (0-2); Smudge Cells 1.0 %
[2025-10-31] MEDS ORDERED: Droperidol 5 MG/2 ML VIAL ONE (11:26)
[2025-10-31] MEDS ORDERED: Iopamidol-370 76% 500 ML MDV (1 ML CHARGE) ONE ×2 (11:51→11:57)
[2025-10-31 12:23] LABS: ALT (SGPT) 20 U/L (Less than 45); AST (SGOT) 30 U/L (11-34); Albumin 3.2 g/dL (3.1-4.5); Alkaline Phosphatase 86 U/L (40-110); Anion Gap 15 mmol/L (10-20); BUN (Urea Nitrogen) 30 mg/dL (8.9-20.6); Bilirubin, Total 0.2 mg/dL (0.3-1.2); Calc. Creatinine Clearance 0 mL/min (70-130); Calcium 8.4 mg/dL (7.8-10.44); Carbon Dioxide 22 mmol/L (22-29); Chloride 111 mmol/L (98-107); Globulin 4.1 g/dL (2.4-3.5); Glucose 106 mg/dL (70-105); Potassium 3.8 mmol/L (3.5-5.1); Sodium 144 mmol/L (136-145)
[2025-10-31 14:21] LABS: Bacteria/HPF None Seen HPF (None Seen); CAUTI Indications for Culture Alt mental st,lethar; Glucose, Urine (Dipstick) Normal (Negative); Leukocyte Negative Leu/uL (Negative); Protein, Urine (Dipstick) 70 mg/dL (Neg-Trace); RBC/HPF 0-3 HPF (0-3); WBC/HPF 0-3 HPF (0-3)
[2025-10-31 14:24] LABS: Specific Gravity, Urine Greater than 1.050 (1.002-1.036)
[2025-10-31 14:25] LABS: Urine Culture Reflex No No
[2025-10-31 14:27] VITALS: BMI 19.3
[2025-10-31 14:27] LABS: Cocaine Metabolite Screen Negative (Negative); THC/Cannabinoid Screen PRELIM POSITIVE (Negative); Tricyclic Screen Negative (Negative)
[2025-10-31] MEDS ORDERED: Azithromycin 500 MG VIAL ONE (15:10)
[2025-10-31] MEDS: Azithromycin 500 MG in Sodium Chloride 0.9% 250 ML 250 ML IVPB SCH (15:17)
[2025-10-31] MEDS: QUEtiapine 100 MG TAB PER TUBE SCH (21:35)
[2025-10-31] MEDS: carBAMazepine 100 MG/5 ML UDCUP PER TUBE SCH (21:36)
[2025-10-31] MEDS: Pantoprazole 80 MG, Admixture Fee 1 EACH in Sodium Chloride 0.9% 100 ML IVPB SCH (22:08)
[2025-11-01] MEDS: Ondansetron PF 4 MG/2 ML Vial IVP PRN (02:39)
[2025-11-01 04:43] LABS: Anion Gap 12 mmol/L (10-20); BUN (Urea Nitrogen) 26 mg/dL (8.9-20.6); Calc. Creatinine Clearance 98 mL/min (70-130); Calcium 8.7 mg/dL (7.8-10.44); Carbon Dioxide 21 mmol/L (22-29); Chloride 113 mmol/L (98-107); Glucose 96 mg/dL (70-105); Potassium 3.8 mmol/L (3.5-5.1); Sodium 142 mmol/L (136-145)
[2025-11-01 06:19] LABS: #Basophils Less than 0.03 10x3/uL (0.0-0.2); #Eosinophils Less than 0.03 10x3/uL (0.0-0.7); #Monocytes 0.63 10x3/uL (0.11-0.59); #Neutrophils 17.21 10x3/uL (1.40-6.50); %Basophils 0.1 % (0.0-1.0); %Eosinophils 0.0 % (0.0-10.0); %Lymphocytes 7.3 % (21.0-51.0); %Monocytes 3.2 % (0.0-10.0); %Neutrophils 88.8 % (42.0-75.0); Hematocrit 31.6 % (42.0-52.0); Hemoglobin 10.4 g/dL (14.0-18.0); Mean Corpuscular Hemoglobin 29.5 pg (27.0-31.0); Mean Corpuscular Volume 89.5 fL (78.0-98.0); Platelet Count 255 10x3/uL (130-400); Red Blood Cell (RBC) Count 3.53 mill/uL (4.70-6.10); White Blood Cell (WBC) Count 19.40 10x3/uL (4.8-10.8)
[2025-11-01] MEDS: Prochlorperazine 10 MG/2 ML VIAL SLOW IVP PRN (09:42)
[2025-11-01] MEDS: cefTRIAXone\\ROCEPHIN 2 GM in Sodium Chloride 0.9% 100 ML IVPB SCH (10:28)
[2025-11-01 11:25] VITALS: BP 144/84; TEMP 98.7
[2025-11-03] MEDS ORDERED: PNEUMOC 20-VAL CONJ-DIP CRM/PF 0.5 ML SYRINGE IM ONE (09:00)
== END 2025-11-01 15:15 | disposition left against medical advice (07) | DRG 380 ==
LOC: ERS 09:50 → ERHOLD 14:11 → 2NO 20:20
PROVIDERS: ADMIT Internal Medicine; ATTEND Internal Medicine
DX: K22.10 Ulcer of esophagus without bleeding (principal); J18.9 Pneumonia, unspecified organism; J93.9 Pneumothorax, unspecified; K92.0 Hematemesis; R13.10 Dysphagia, unspecified; K29.20 Alcoholic gastritis without bleeding; Z87.820 Personal history of traumatic brain injury; J38.01 Paralysis of vocal cords and larynx, unilateral; G40.909 Epilepsy, unspecified, not intractable, without status epilepticus; F31.9 Bipolar disorder, unspecified; Z98.890 Other specified postprocedural states; F10.10 Alcohol abuse, uncomplicated; Z93.1 Gastrostomy status; K44.9 Diaphragmatic hernia without obstruction or gangrene; F12.929 Cannabis use, unspecified with intoxication, unspecified; Z79.899 Other long term (current) drug therapy
CPT/HCPCS: 36415; 36416; 71260; 74177; 80048; 80053; 80306; 80307; 81001; 83605; 84145; 85025; 85610; 85730; 86850; 86900; 86901; 87040; 93005; 96365; 96366; 96368; 96372; 96375; J0456; J0696; J0780; J1790; J2060; J2354; J2405; J2470; J7030; J7050; Q9967